=== PATIENT | male | born 1980 | race Hispanic/Latino ===

== ENCOUNTER 2020-03-28 22:54 | Emergency (ER) | payer OTHER ==
[2020-03-28 23:41] LABS: Absolute Lymphocytes (CBC) 1.6 K/uL (0.7-4.9); Basophils % 0.6 % (0-1.3); Hematocrit 28.1 % (39.6-49.0); Lymphocytes % 13.6 % (15.3-44.8); MPV 7.5 fL (7.6-11.3); RBC Red Blood Cell Count 2.88 M/uL (4.33-5.43)
[2020-03-29 00:20] LABS: Bilirubin Direct 0.1 mg/dL (0-0.2); Bilirubin Total 0.2 mg/dL (0.2-1.0)
[2020-03-29] MEDS ORDERED: CLINDAMYCIN 900MG/D5W 900 MG/50 ML IVPB IV ONE (00:36)
--- NOTE | 2020-03-29 01:20 | EDPHYS ---
Physician Documentation [facility] Name: Jp Joe Age: 39 yrs Sex: Male : 1980 Arrival Date: 03/28/2020 Time: 22:58 Bed 5 Private MD: ED Physician Trey Wan HPI: 03/29 06:17 This 39 yrs old Male presents to ER via Wheelchair with complaints of Foot tw4 Infection. 06:17 The patient presents with cellulitis of the right first toe, right second toe and right tw4 third toe. Description: The affected area is moderate sized, localized. Onset: The symptoms/episode began/occurred today. Possible cause(s): unknown. Associated signs and symptoms: The patient has no apparent associated signs or symptoms. Severity of symptoms: At their worst the symptoms were mild. The patient has not experienced similar symptoms in the past. Historical: - Allergies: 03/28 22:59 No Known Allergies; sg - PMHx: 03/29 01:37 Diabetes - NIDDM; ll2 - PSHx: 03/28 22:59 None; sg - Immunization history:: Adult Immunizations up to date. - Social history:: Smoking status: Patient denies any tobacco usage or history of. ROS: 03/29 06:17 Constitutional: Negative for fever, chills, and weight loss, Cardiovascular: Negative tw4 for chest pain, palpitations, and edema, Respiratory: Negative for shortness of breath, cough, wheezing, and pleuritic chest pain, Abdomen/GI: Negative for abdominal pain, nausea, vomiting, diarrhea, and constipation, Back: Negative for injury and pain, MS/Extremity: Negative for injury and deformity. Skin: Positive for cellulitis, Negative for abrasions, abscesses, avulsion, burn, discoloration, ecchymosis, erythema, hematoma, jaundice. Exam: 06:17 Constitutional: This is a well developed, well nourished patient who is awake, alert, tw4 and in no acute distress. Head/Face: Normocephalic, atraumatic. Chest/axilla: Normal chest wall appearance and motion. Nontender with no deformity. No lesions are appreciated. Cardiovascular: Regular rate and rhythm with a normal S1 and S2. No gallops, murmurs, or rubs. Normal PMI, no JVD. No pulse deficits. Respiratory: Lungs have equal breath sounds bilaterally, clear to auscultation and percussion. No rales, rhonchi or wheezes noted. No increased work of breathing, no retractions or nasal flaring. Abdomen/GI: Soft, non-tender, with normal bowel sounds. No distension or tympany. No guarding or rebound. No evidence of tenderness throughout. Back: No spinal tenderness. No costovertebral tenderness. Full range of motion. MS/ Extremity: Pulses equal, no cyanosis. Neurovascular intact. Full, normal range of motion. Neuro: Awake and alert, GCS 15, oriented to person, place, time, and situation. Cranial nerves II-XII grossly intact. Motor strength 5/5 in all extremities. Sensory grossly intact. Cerebellar exam normal. Normal gait. 06:17 Skin: cellulitis, that is moderate. Vital Signs: 03/28 23:45 BP 149 / 84; Pulse 91; Resp 16; Pulse Ox 100% on R/A; ll2 03/29 01:21 BP 130 / 76; Pulse 89; Resp 13; Pulse Ox 100% on R/A; ll2 MDM: 03/28 23:10 Patient medically screened. tw4 03/29 06:17 Differential diagnosis: cellulitis. Data reviewed: vital signs, nurses notes. Data tw4 interpreted: Pulse oximetry: Interpretation: normal. Counseling: I had a detailed discussion with the patient and/or guardian regarding: the historical points, exam findings, and any diagnostic results supporting the discharge/admit diagnosis. Special discussion: I discussed with the patient/guardian in detail that at this point there is no indication for admission to the hospital. It is understood, however, that if the symptoms persist or worsen the patient needs to return immediately for re-evaluation. 03/28 23:12 Order name: Amylase, Serum tw4 03/28 23:12 Order name: Basic Metabolic Panel tw4 03/28 23:12 Order name: Blood Culture Adult (2) tw4 03/28 23:12 Order name: CBC with Diff; Complete Time: 00:17 tw4 03/29 00:17 Interpretation: Normal except: WBC 11.8; HGB 10.0; RBC 2.88; HCT 28.1; MCV 97.6; MCH tw4 34.7; NEUT A 9.0; LYM% 13.6; OSLO% 76.0; MPV 7.5. 03/28 23:12 Order name: Lactate; Complete Time: 00:17 tw4 03/29 00:17 Interpretation: Normal except: LAC 1.3. tw4 03/28 23:12 Order name: LFT's tw4 03/28 23:12 Order name: Lipase tw4 03/28 23:12 Order name: Procalcitonin tw4 03/28 23:12 Order name: Protime (+inr); Complete Time: 00:17 tw4 03/29 00:17 Interpretation: Normal except: PT 11.8. tw4 03/28 23:12 Order name: Ptt, Activated; Complete Time: 00:17 tw4 03/29 00:17 Interpretation: Normal except: PTT 41.0. tw4 03/29 00:01 Order name: Glucose, Ancillary Testing; Complete Time: 00:17 EDMS 03/29 00:17 Interpretation: Normal except: GLUC,ANCIL 247. tw4 03/29 00:02 Order name: Glucose, Ancillary Testing EDMS 03/29 00:40 Order name: Glucose, Ancillary Testing EDMS 03/28 23:12 Order name: Accucheck; Complete Time: 23:54 tw4 03/28 23:12 Order name: Cardiac monitoring; Complete Time: 23:45 tw4 03/28 23:12 Order name: IV Saline Lock - Large Bore; Complete Time: 23:43 tw4 03/28 23:12 Order name: Labs collected and sent; Complete Time: 23:43 tw4 03/28 23:12 Order name: O2 Per Protocol; Complete Time: 23:46 tw4 03/28 23:12 Order name: O2 Sat Monitoring; Complete Time: 23:46 tw4 Administered Medications: 00:35 Drug: Clindamycin 900 mg Route: IVPB; Infused Over: 30 mins; Site: right antecubital; ll2 01:05 Follow up: Response: No adverse reaction; IV Status: Completed infusion ll2 Point of Care Testing: Blood Glucose: 03/28 23:51 Blood Glucose: 247 mg/dL; ll2 Ranges: Critical Glucose Levels:Adult <50 mg/dl or >400 mg/dl <40 mg/dl or >180 mg/dl Disposition: 03/29/20 01:19 Discharged to Home. Impression: Cellulitis of right lower limb. - Condition is Stable. - Discharge Instructions: Cellulitis, Adult. - Prescriptions for Cleocin 300 mg Oral Capsule - take 1 capsule by ORAL route every 6 hours for 10 days; 40 capsule. - Medication Reconciliation Form, Thank You Letter, Antibiotic Education, Prescription Opioid Use form. - Follow up: Private Physician; When: Upon discharge from the Emergency Department; Reason: Recheck today's complaints, Continuance of care, Re-evaluation by your physician. - Problem is new. - Symptoms are unchanged. Signatures: Dispatcher [employer] EDVirgil Berger RN RN sg Trey Wan MD MD tw4 Elena Easton RN RN ll2 Corrections: (The following items were deleted from the chart) 03/29 01:37 03/28 22:59 PMHx: Diabetes - NIDDM; sg ll2 03/29 01:37 01:19 03/29/2020 01:19 Discharged to Home. Impression: Cellulitis of right lower limb. ll2 Condition is Stable. Forms are Medication Reconciliation Form, Thank You Letter, Antibiotic Education, Prescription Opioid Use. Follow up: Private Physician; When: Upon discharge from the Emergency Department; Reason: Recheck today's complaints, Continuance of care, Re-evaluation by your physician. Problem is new. Symptoms are unchanged. tw4
--- NOTE | 2020-03-29 01:20 | ER ---
Nurse's Notes [facility] Name: Jp Joe Age: 39 yrs Sex: Male : 1980 Arrival Date: 03/28/2020 Time: 22:58 Bed 5 Private MD: Diagnosis: Cellulitis of right lower limb Presentation: 03/28 23:01 Chief complaint: Patient states: pt reports a sore on his left foot has become sg infected. Coronavirus screen: Client denies travel out of the [place] in the last 14 days. At this time, the client does not indicate any symptoms associated with coronavirus-19. Ebola Screen: Patient negative for fever greater than or equal to 101.5 degrees Fahrenheit, and additional compatible Ebola Virus Disease symptoms Patient denies exposure to infectious person. Patient denies travel to an Ebola-affected area in the 21 days before illness onset. No symptoms or risks identified at this time. Initial Sepsis Screen: Does the patient meet any 2 criteria? No. Patient's initial sepsis screen is negative. Does the patient have a suspected source of infection? No. Patient's initial sepsis screen is negative. Risk Assessment: Do you want to hurt yourself or someone else? Patient reports no desire to harm self or others. Onset of symptoms was March 21, 2020. Care prior to arrival: None. Transition of care: patient was not received from another setting of care. 23:01 Acuity: JOHN 3 sg 23:01 Method Of Arrival: Wheelchair sg Triage Assessment: 03/29 01:17 General: Appears in no apparent distress. Behavior is calm, cooperative, appropriate ll2 for age. Pain: Denies pain. Historical: - Allergies: 03/28 22:59 No Known Allergies; sg - PMHx: 03/29 01:37 Diabetes - NIDDM; ll2 - PSHx: 03/28 22:59 None; sg - Immunization history:: Adult Immunizations up to date. - Social history:: Smoking status: Patient denies any tobacco usage or history of. Screenin:46 Abuse screen: Denies threats or abuse. Nutritional screening: No deficits noted. ll2 Tuberculosis screening: No symptoms or risk factors identified. Fall Risk IV access (20 points). Ambulatory Aid- None/Bed Rest/Nurse Assist (0 pts). Gait- Normal/Bed Rest/Wheelchair (0 pts) Mental Status- Oriented to own ability (0 pts). Total Law Fall Scale indicates No Risk (0-24 pts). Assessment: 23:46 Reassessment: No changes from previously documented assessment. Patient and/or family ll2 updated on plan of care and expected duration. Pain level reassessed. Patient is alert, oriented x 3, equal unlabored respirations, skin warm/dry/pink. 23:51 Reassessment: fsbs 247, ERD notified. ll2 03/29 00:36 Reassessment: Patient and/or family updated on plan of care and expected duration. Pain ll2 level reassessed. Patient is alert, oriented x 3, equal unlabored respirations, skin warm/dry/pink. FSBS 241, results given to ERD. Vital Signs: 03/28 23:45 BP 149 / 84; Pulse 91; Resp 16; Pulse Ox 100% on R/A; ll2 03/29 01:21 BP 130 / 76; Pulse 89; Resp 13; Pulse Ox 100% on R/A; ll2 ED Course: 03/28 22:58 Patient arrived in ED. bp1 22:59 Arm band placed on. sg 23:05 Triage completed. sg 23:09 Elena Easton, RN is Primary Nurse. ll2 23:10 Trey Wan MD is Attending Physician. tw4 23:42 Inserted saline lock: 20 gauge in right antecubital area, using aseptic technique. 4 Blood collected. 23:44 Amylase, Serum Sent. dh4 23:44 Basic Metabolic Panel Sent. 4 23:44 Blood Culture Adult (2) Sent. 4 03/29 00:22 Glucose, Ancillary Testing Sent. ll2 01:17 Patient has correct armband on for positive identification. Bed in low position. Call 2 light in reach. Side rails up X2. Adult w/ patient. Pulse ox on. NIBP on. 01:37 No provider procedures requiring assistance completed. IV discontinued, intact, ll2 bleeding controlled, No redness/swelling at site. Pressure dressing applied. Administered Medications: 00:35 Drug: Clindamycin 900 mg Route: IVPB; Infused Over: 30 mins; Site: right antecubital; ll2 01:05 Follow up: Response: No adverse reaction; IV Status: Completed infusion ll2 Point of Care Testing: Blood Glucose: 03/28 23:51 Blood Glucose: 247 mg/dL; ll2 Ranges: Outcome: 03/29 01:19 Discharge ordered by . tw4 01:37 Discharged to home ambulatory. ll2 01:37 Condition: stable 01:37 Discharge instructions given to patient, Instructed on discharge instructions, follow up and referral plans. medication usage, Demonstrated understanding of instructions, follow-up care, medications. 01:37 Patient left the ED. ll2 Signatures: Virgil Wolff RN RN Trey Talbot MD MD tw4 Edvin Jang [facility] Elena Easton RN RN 2 Starla Kinsey [facility] Corrections: (The following items were deleted from the chart) 01:37 03/28 22:59 PMHx: Diabetes - NIDDM; hallie 2
[2020-03-29 01:50] VITALS: O2SAT 100
[2020-03-29 01:52] VITALS: BP 130/76
--- NOTE | 2020-03-31 11:17 | EKG ---
Test Date: 2020-03-28 Test Time: 23:23:30 Preprint Analyst: BETHANY MEASUREMENT RESULTS: Intervals: Rate: 92 IA: 152 QRSD: 94 QT: 384 QTc: 474 Bassett: P: 58 IA: 152 QRS: 30 T: 53 INTERPRETIVE STATEMENTS: Normal sinus rhythm Normal ECG Compared to ECG 01/04/2006 14:11:48 Sinus tachycardia no longer present Electronically Signed On 03-31-20 11:14:03 CDT by Leighton Wang
== END 2020-03-29 01:37 | disposition home or self-care (01) ==
LOC: ER 22:54
DX: L03.115 Cellulitis of right lower limb (principal); E11.9 Type 2 diabetes mellitus without complications
CPT/HCPCS: 36415; 80048; 80076; 82150; 82947; 83605; 83690; 84145; 85025; 85610; 85730; 87040; 93005; 96365; 99284

== ENCOUNTER 2020-10-30 11:45 | Emergency (ER) | payer OTHER ==
--- OUTSIDE RECORDS SUMMARY | 2020-10-30 11:48 | XMS REPORT | Continuity of Care Document ---
:1980 Author Organization [facility] t Address [address] [place] [address] Care Team Providers Name Role Phone Naomie Curiel DO Primary Care Physician Sree Chung Attending Clinician Dione Tolliver Attending Clinician Malena Carson MD Attending Clinician Carloz HORTON Attending Clinician Hitesh Torres CRNA Attending Clinician MITCHELL Attending Clinician Unavailable YAMILETH Admitting Clinician Unavailable MITCHELL Admitting Clinician Unavailable Payers Payer Name Policy Type Policy Effective Date Expiration Date Sour ce Number MEDICAREMEDICARE PART [id number] 2019 Peterson abdi Balbuena AND 00:00:00 [employer] [id number] 2019 [place] Condition Condition Condition Status Onset Resolution Last Treating Co mments Source Name Details Category Date Date Treatment Clinician Date ESRD (end ESRD (end Disease Active Overview: [place] stage stage 1-24 [facility] [facility] renal renal 00:00: g of this st disease) disease) 00 note on on might be dialysis dialysis different from the original. Added automatic ally from request for surgery [id number] Problem Problem Disease Active 2020-0 Overview: [place] with with 1-24 [facility] dialysis dialysis 00:00: g of this st access access 00 note might be different from the original. Added automatic ally from request for surgery [id number] Allergies, Adverse Reactions, Alerts This patient has no known allergies or adverse reactions. Social History Social Habit Start Date Stop Date Quantity Comments Source History [facility] Alcohol Std Drinks History [facility] Alcohol Binge Tobacco use and 2019-12-01 2019-12-01 Never used Teddy Hurtado ethodist exposure 00:00:00 00:00:00 Alcohol intake 2019-12-01 2019-12-01 Lifetime [place] [facility]ist 00:00:00 00:00:00 non-drinker (finding) History SDIA 2019-07-18 2019-07-18 1 [place] [facility] Alcohol Frequency 00:00:00 00:00:00 History of tobacco 2019-05-18 Current smoker [place] [facility] use 00:00:00 Sex [birth year] [place] [facility] ethodist 00:00:00 00:00:00 Smoking Status Start Date Stop Date Source Former smoker 2019-12-01 00:00:00 2019-12-01 00:00:00 [place] [facility] Medications Ordered Filled Start Stop Current Ordering Indication Dosage Frequency Signature Comments Components Source Medication Medication Date Date Medication? Clinician (SIG) Name Name lidocaine-p Yes Encounter APPLY OVER [place] rilocaine 09-19 regarding [place] (EMLA) 00:00: vascular 30-40 st 2.5-2.5 % 00 access for MINUTES cream dialysis PRIOR TO for DIALYSIS end-stage TREATMENT renal disease (HCC) lisinopril 2020-0 Yes 20mg Take 20 mg [place] (PRINIVIL) 6-10 by mouth. Meth samy 20 mg 16:03: st tablet 22 ergocalcife 2020-0 Yes [id number] Take [place] 6-10 50,000 [facility] (VITAMIN 16:03: Units by st D2) 50,000 22 mouth. unit capsule insulin NPH 2020-0 Yes 5U Inject 5 [place] and regular 6-10 Units [facility] human 16:03: under the st (HumuLIN 22 skin. 7030) 100 unit/mL (70-30) amLODIPine 2019-0 Yes 5mg QD Take 5 mg [place] (NORVASC) 5 6-10 by mouth Meth samy mg tablet 16:03: daily. st 22 lidocaine-p 2020- No Encounter Apply over [place] rilocaine 09-04 regarding fistula Bryant bullard (EMLA) 00:00: 00:00 vascular 30-40 min s t 2.5-2.5 % 00 :00 access for prior to cream dialysis dialysis for treatment end-stage renal disease (HCC) HYDROcodone Yes acute pain 1{tbl} Q6H Take 1 [facility] -acetaminop 1-29 tablet by Met hodi hen (NORCO) 00:00: mouth st 5-325 mg 00 every 6 per tablet (six) hours as needed for moderate pain for up to 5 days .acute pain. Max Daily Amount: 4 tablets sevelamer 2018-06 Yes 800mg [id number] Take 800 [facility] (RENVELA) 07-29 [id number] mg by Met hodi 800 mg 00:00: 3D mouth 3 st tablet 00 (three) times a day with meals. atorvastati 2018-06 2020- No 20mg QD Take 20 mg Teddy n (LIPITOR) 07-29 by mouth Met hodi 20 MG 00:00: 00:[address] tablet 00 :00 Vital Signs Vital Name Observation Time Observation Value Comments Source Systolic blood 2019-11-29 15:09:00 131 mm[Hg] [place] n [facility] pressure Diastolic blood 2019-11-29 15:09:00 82 mm[Hg] [place] on [facility] pressure Heart rate 2019-11-29 15:09:00 85 /min Teddy May Body temperature 2019-11-29 15:09:00 36.61 Leslie [place] [facility] Respiratory rate 2019-11-29 15:09:00 16 /min [place] [facility] Oxygen saturation in 2019-11-29 15:09:00 100 /min Teddy May Arterial blood by Pulse oximetry Body height 2019-11-29 10:32:00 175.3 cm Teddy May Body weight 2019-11-29 10:32:00 103.874 kg Teddy May BMI 2019-11-29 10:32:00 33.82 kg/m2 Teddy May Procedures Procedure Date / Time Performed Performing Clinician Sourc e VITRECTOMY 2019-11-29 12:40:00 Eugenio Carson [facility] POC PANEL 4 2019-11-29 10:56:00 Eugenio Carson [place] [facility] Plan of Care Planned Activity Planned Date Details Comments Source Future Scheduled 2021-01-19 INFLUENZA VACCINE [place] [facility] Test 00:00:00 [code = INFLUENZA VACCINE] Future Scheduled 1999-12-18 Hepatitis C screening [place] [facility] Test 00:00:00 (procedure) [code = 280665200] Future Scheduled 1997 COVID-19 VACCINE (1) [place] [facility] Test 00:00:00 [code = COVID-19 VACCINE (1)] Future Scheduled 1991-12-18 DIABETES: RETINAL EYE [place] [facility] Test 00:00:00 EXAM [code = DIABETES: RETINAL EYE EXAM] Future Scheduled 1991-12-18 DIABETIC FOOT EXAM [place] [facility] Test 00:00:00 [code = DIABETIC FOOT EXAM] Future Scheduled 1991-12-18 URINE MICROALBUMIN [place] [facility] Test 00:00:00 [code = URINE MICROALBUMIN] Encounters Start End Encounter Admission Attending Care Care Encounter Source Date/Time Date/Time Type Type Clinicians Facility Department ID 2020-10-25 2020-10-25 Office Located within [facility] [id number] 14 13:18:00 15:16:[address] [facility] [id number] [place] [id number] Daniel [id number] [place] [address] 2019-11-29 2019-11-29 Outpatient [facility] [id number] [place] 00:00:00 00:00:[address] 2019-10-10 2019-10-10 Outpatient [facility] [id number] [place] 00:00:00 00:00:[address] 2019-09-05 2019-09-05 Outpatient [facility] [id number] [place] 00:00:00 00:00:[address] 2019-07-18 2019-07-18 Outpatient [facility] [id number] [place] 00:00:00 00:00:00 THONY [address] Results This patient has no known results.
[2020-10-30 13:53] LABS: Absolute Lymphocytes (CBC) 1.4 K/uL (0.7-4.9); Basophils % 0.8 % (0-1.3); Hematocrit 28.6 % (39.6-49.0); Lymphocytes % 8.1 % (15.3-44.8); RBC Red Blood Cell Count 2.91 M/uL (4.33-5.43)
[2020-10-30 14:00] LABS: Protime INR 1.04
[2020-10-30 14:04] LABS: Albumin 2.7 g/dL (3.4-5.0); Bilirubin Direct 0.1 mg/dL (0-0.2); Bilirubin Total 0.3 mg/dL (0.2-1.0); Magnesium 2.4 mg/dL (1.8-2.4); Potassium 4.1 mmol/L (3.5-5.1); Protein, Total 8.6 g/dL (6.4-8.2); Troponin (Emerg Dept Use Only) 0.02 ng/mL (0.0-0.045)
[2020-10-30] MEDS ORDERED: LIDOCAINE 1% W/EPI 1:100,000 MDV 20 ML VIAL ONE (14:04)
--- NOTE | 2020-10-30 14:29 | ER ---
Nurse's Notes [facility] Name: Jp Joe Age: 39 yrs Sex: Male : 1980 Arrival Date: 10/30/2020 Time: 11:51 Bed 15 Private MD: Diagnosis: Cutaneous abscess of face;Type 1 diabetes mellitus;End stage renal disease-on HD, M, W, WEDNESDAY;Elevated white blood cell count Presentation: 10/30 12:09 Chief complaint: Abscess on right cheek x 5 days. Coronavirus screen: At this time, the hb client does not indicate any symptoms associated with coronavirus-19. Ebola Screen: No symptoms or risks identified at this time. Initial Sepsis Screen: Does the patient meet any 2 criteria? No. Patient's initial sepsis screen is negative. Does the patient have a suspected source of infection? No. Patient's initial sepsis screen is negative. Risk Assessment: Do you want to hurt yourself or someone else? Patient reports no desire to harm self or others. Onset of symptoms was October 26, 2020. 12:09 Method Of Arrival: Ambulatory hb 12:09 Acuity: JOHN 3 hb Historical: - Allergies: 12:10 No Known Allergies; hb - Home Meds: 12:10 Novolin 70/30 [place] Sub-Q [Active]; hb - PMHx: 12:10 Diabetes - NIDDM; hb - PSHx: 12:10 None; hb - Immunization history:: Adult Immunizations up to date. - Social history:: Smoking status: Patient/guardian denies using tobacco, Stopped _ months ago .5. - Family history:: not pertinent. Screenin:35 Abuse screen: Denies threats or abuse. Nutritional screening: No deficits noted. vg1 Tuberculosis screening: No symptoms or risk factors identified. Fall Risk No fall in past 12 months (0 pts). No secondary diagnosis (0 pts). No IV (0 pts). Ambulatory Aid- None/Bed Rest/Nurse Assist (0 pts). Gait- Normal/Bed Rest/Wheelchair (0 pts) Mental Status- Oriented to own ability (0 pts). Total Law Fall Scale indicates No Risk (0-24 pts). Assessment: 12:30 General: Appears in no apparent distress. comfortable, Behavior is calm, cooperative. vg1 Pain: Complains of pain in Right side of cheek Pain currently is 2 out of 10 on a pain scale. at worst was 10 out of 10 on a pain scale. Pain began about five days ago Alleviated by rest, Aggravated by touch. Neuro: Level of Consciousness is awake, alert, obeys commands, Oriented to person, place, time, situation. Cardiovascular: Patient's skin is warm and dry. Cardiovascular: Dialysis shunt: in the left forarm, with palpable thrill, with auscultated bruit. Respiratory: Airway is patent Respiratory effort is even, unlabored. GI: No signs and/or symptoms were reported involving the gastrointestinal system. : No signs and/or symptoms were reported regarding the genitourinary system. 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 Derm: Skin is red, yellow exudate noted Abscess located on right side of cheek. Musculoskeletal: Circulation, motion, and sensation intact. 14:44 Reassessment: Patient appears in no apparent distress at this time. No changes from vg1 previously documented assessment. Patient and/or family updated on plan of care and expected duration. Pain level reassessed. Patient is alert, oriented x 3, equal unlabored respirations, skin warm/dry/pink. Pt currently up for d/c, awaiting for IV fluids to complete. Vital Signs: 12:09 BP 198 / 88; Pulse 83; Resp 16; Temp 98; Pulse Ox 99% on R/A; Pain 10/10; hb 12:33 BP 154 / 88; Pulse 90; Resp 16; Pulse Ox 100% on R/A; vg1 14:54 BP 142 / 74; Pulse 89; Resp 16; Pulse Ox 100% on R/A; vg1 ED Course: 11:51 Patient arrived in ED. mr 12:10 Triage completed. hb 12:10 Arm band placed on. hb 12:21 Ramona Joe, RN is Primary Nurse. vg1 12:31 Javier Martines MD is Attending Physician. monet 12:35 Patient has correct armband on for positive identification. Bed in low position. Call vg1 light in reach. Side rails up X 1. Adult w/ patient. 14:29 Biju Patel MD is Referral Physician. monet 14:29 Aaron Curiel DO is Referral Physician. monet 14:53 Inserted saline lock: 18 gauge in right antecubital area, using aseptic technique. vg1 ,using aseptic technique. Completed by SANA Dubois. 16:17 No provider procedures requiring assistance completed. IV discontinued, intact, vg1 bleeding controlled, No redness/swelling at site. Pressure dressing applied. Administered Medications: 14:21 Drug: Lidocaine-Epinephrine -1%: (1:100,000) 10 ml Volume: 20 ml; Route: Infiltration; vg1 14:52 Follow up: Response: No adverse reaction vg1 14:22 CANCELLED (Physician Discretion): Zosyn (piperacillin-tazobactam) 3.375 grams IVPB once vg1 over 60 mins; (mix in NS 100 mL) 14:44 Drug: Doxycycline 200 mg Route: PO; vg1 16:17 Follow up: Response: No adverse reaction vg1 14:44 Drug: Bactrim (trimethoprim-sulfamethoxazole) (160 mg-800 mg (DS) 1 tablet Route: PO; vg1 16:17 Follow up: Response: No adverse reaction vg1 14:44 Drug: Bactroban (mupirocin) Ointment 2 % 1 application Route: Topical; Site: affected vg1 area; 16:16 Follow up: Response: No adverse reaction vg1 14:52 Drug: vancoMYCIN 1 grams Route: IVPB; Infused Over: 2 hrs; Site: right antecubital; vg1 16:17 Follow up: IV Status: Completed infusion vg1 Outcome: 14:29 Discharge ordered by MD. healy 16:17 Discharged to home ambulatory, with family. vg1 16:17 Condition: stable 16:17 Discharge instructions given to patient, family, Instructed on discharge instructions, follow up and referral plans. medication usage, Demonstrated understanding of instructions, follow-up care, medications, Prescriptions given X 3. 16:18 Patient left the ED. vg1 Addendum: 11/02/2020 09:35 Addendum: Culture Results: Positive wound culture. No further action required. Bacteria a a5 sensitive to prescribed antibiotic. Signatures: Javier Martines MD MD cha Rivera, Mary mr TerranceGinny, RN RN aa5 Laura Stephenson, Ramona Ramos RN, RN RN vg1 Corrections: (The following items were deleted from the chart) 10/30 12:11 12:09 BP 148 / 88; Pulse 83bpm; Resp 16bpm; Pulse Ox 99% RA; Temp 98F; Pain 10; hb hb
--- NOTE | 2020-10-30 14:30 | EDPHYS ---
Physician Documentation [facility] Name: Jp Joe Age: 39 yrs Sex: Male : 1980 Arrival Date: 10/30/2020 Time: 11:51 Bed 15 Private MD: ED Physician Javier Martines HPI: 10/30 13:15 This 39 yrs old Male presents to ER via Ambulatory with complaints of Abscess. monet 13:15 The patient presents with an abscess of the right cheek and right ear, The patient monet presents with cellulitis of the right cheek and right ear. Description: The affected area is moderate sized, confluent, draining, erythematous. Onset: The symptoms/episode began/occurred 5 day(s) ago. Possible cause(s): unknown. Modifying factors: the symptoms are alleviated by. Severity of symptoms: At their worst the symptoms were moderate, in the emergency department the symptoms are unchanged. The patient has not experienced similar symptoms in the past. Historical: - Allergies: 12:10 No Known Allergies; hb - Home Meds: 12:10 Novolin 70/30 [place] Sub-Q [Active]; hb - PMHx: 12:10 Diabetes - NIDDM; hb - PSHx: 12:10 None; hb - Immunization history:: Adult Immunizations up to date. - Social history:: Smoking status: Patient/guardian denies using tobacco, Stopped _ months ago .5. - Family history:: not pertinent. ROS: 13:15 Constitutional: Negative for fever, chills, and weight loss, Eyes: Negative for injury, monet pain, redness, and discharge, Neck: Negative for injury, pain, and swelling, Cardiovascular: Negative for chest pain, palpitations, and edema, Respiratory: Negative for shortness of breath, cough, wheezing, and pleuritic chest pain, Abdomen/GI: Negative for abdominal pain, nausea, vomiting, diarrhea, and constipation, Back: Negative for injury and pain, : Negative for injury, bleeding, discharge, and swelling, MS/Extremity: Negative for injury and deformity, Neuro: Negative for headache, weakness, numbness, tingling, and seizure, Psych: Negative for depression, anxiety, suicide ideation, homicidal ideation, and hallucinations, Allergy/Immunology: Negative for hives, rash, and allergies, Endocrine: Negative for neck swelling, polydipsia, polyuria, polyphagia, and marked weight changes. 13:15 ENT: Positive for right facial abscess, indurated, draining. Exam: 13:15 Constitutional: This is a well developed, well nourished patient who is awake, alert, monet and in no acute distress. Eyes: Pupils equal round and reactive to light, extra-ocular motions intact. Lids and lashes normal. Conjunctiva and sclera are non-icteric and not injected. Cornea within normal limits. Periorbital areas with no swelling, redness, or edema. ENT: Nares patent. No nasal discharge, no septal abnormalities noted. Tympanic membranes are normal and external auditory canals are clear. Oropharynx with no redness, swelling, or masses, exudates, or evidence of obstruction, uvula midline. Mucous membranes moist. Neck: Trachea midline, no thyromegaly or masses palpated, and no cervical lymphadenopathy. Supple, full range of motion without nuchal rigidity, or vertebral point tenderness. No Meningismus. Chest/axilla: Normal chest wall appearance and motion. Nontender with no deformity. No lesions are appreciated. Cardiovascular: Regular rate and rhythm with a normal S1 and S2. No gallops, murmurs, or rubs. Normal PMI, no JVD. No pulse deficits. Respiratory: Lungs have equal breath sounds bilaterally, clear to auscultation and percussion. No rales, rhonchi or wheezes noted. No increased work of breathing, no retractions or nasal flaring. Abdomen/GI: Soft, non-tender, with normal bowel sounds. No distension or tympany. No guarding or rebound. No evidence of tenderness throughout. Back: No spinal tenderness. No costovertebral tenderness. Full range of motion. Skin: Warm, dry with normal turgor. Normal color with no rashes, no lesions, and no evidence of cellulitis. MS/ Extremity: Pulses equal, no cyanosis. Neurovascular intact. Full, normal range of motion. Neuro: Awake and alert, GCS 15, oriented to person, place, time, and situation. Cranial nerves II-XII grossly intact. Motor strength 5/5 in all extremities. Sensory grossly intact. Cerebellar exam normal. Normal gait. Psych: Awake, alert, with orientation to person, place and time. Behavior, mood, and affect are within normal limits. 13:15 Head/face: Noted is erythema, that is moderate, of the right cheek and right ear, swelling, tenderness. 13:15 Skin: abscess, that is moderate sized, of the face and right cheek, with drainage, with fluctuance, with induration, with pointing, with surrounding cellulitis, that is moderate, cellulitis, that is moderate, induration, that is moderate is noted. Vital Signs: 12:09 BP 198 / 88; Pulse 83; Resp 16; Temp 98; Pulse Ox 99% on R/A; Pain 10/10; hb 12:33 BP 154 / 88; Pulse 90; Resp 16; Pulse Ox 100% on R/A; vg1 14:54 BP 142 / 74; Pulse 89; Resp 16; Pulse Ox 100% on R/A; vg1 Procedures: 13:26 I \T\ D: Incision and drainage was performed for an abscess of the right Prepped with [facility] Betadine, Anesthetized with 10 ml's 1% Lidocaine w/ Epi. Incised with #11 blade. Drained moderate amount Packed with iodoform gauze, Dressing: non-Adherent dressing, the patient tolerated the procedure well. MDM: 12:32 Patient medically screened. monet 13:25 Differential diagnosis: abscess, cellulitis. Data reviewed: vital signs, nurses notes, [facility] lab test result(s), EKG, radiologic studies, plain films. Data interpreted: ekg monitor tech: rate is 90 beats/min, rhythm is regular, Pulse oximetry: on room air is 100 %. Test interpretation: by ED physician or midlevel provider: ECG, plain radiologic studies. Counseling: I had a detailed discussion with the patient and/or guardian regarding: the historical points, exam findings, and any diagnostic results supporting the discharge/admit diagnosis, lab results, the need for outpatient follow up, for definitive care, a general surgeon. 10/30 12:49 Order name: Basic Metabolic Panel [facility] 10/30 12:49 Order name: CBC with Diff [facility] 10/30 12:49 Order name: LFT's [facility] 10/30 12:49 Order name: Magnesium [facility] 10/30 12:49 Order name: NT PRO-BNP [facility] 10/30 12:49 Order name: PT-INR [facility] 10/30 12:49 Order name: Troponin (emerg Dept Use Only) [facility] 10/30 12:49 Order name: Wound Culture [facility] 10/30 12:49 Order name: Basic Metabolic Panel [facility] 10/30 12:49 Order name: CBC with Automated Diff [facility] 10/30 12:49 Order name: Liver (Hepatic) Function [facility] 10/30 12:49 Order name: Magnesium [facility] 10/30 12:49 Order name: NT PRO-BNP [facility] 10/30 12:49 Order name: EKG; Complete Time: 12:50 [facility] 10/30 12:49 Order name: IV Saline Lock; Complete Time: 13:44 [facility] 10/30 12:49 Order name: Labs collected and sent; Complete Time: 13:44 [facility] 10/30 12:49 Order name: O2 Per Protocol; Complete Time: 13:44 [facility] 10/30 12:49 Order name: O2 Sat Monitoring; Complete Time: 13:44 [facility] 10/30 12:50 Order name: Dressing - Wound; Complete Time: 13:43 [facility] 10/30 12:50 Order name: Gloves, Sterile; Complete Time: 13:43 [facility] 10/30 12:50 Order name: Setup Suture Tray; Complete Time: 13:43 [facility] Administered Medications: 14:21 Drug: Lidocaine-Epinephrine -1%: (1:100,000) 10 ml Volume: 20 ml; Route: Infiltration; vg1 14:52 Follow up: Response: No adverse reaction vg1 14:22 CANCELLED (Physician Discretion): Zosyn (piperacillin-tazobactam) 3.375 grams IVPB once vg1 over 60 mins; (mix in NS 100 mL) 14:44 Drug: Doxycycline 200 mg Route: PO; vg1 16:17 Follow up: Response: No adverse reaction vg1 14:44 Drug: Bactrim (trimethoprim-sulfamethoxazole) (160 mg-800 mg (DS) 1 tablet Route: PO; vg1 16:17 Follow up: Response: No adverse reaction vg1 14:44 Drug: Bactroban (mupirocin) Ointment 2 % 1 application Route: Topical; Site: affected vg1 area; 16:16 Follow up: Response: No adverse reaction vg1 14:52 Drug: vancoMYCIN 1 grams Route: IVPB; Infused Over: 2 hrs; Site: right antecubital; vg1 16:17 Follow up: IV Status: Completed infusion vg1 Disposition: 10/30/20 14:29 Discharged to Home. Impression: Cutaneous abscess of face, Type 1 diabetes mellitus, End stage renal disease - on HD, M, W, WEDNESDAY, Elevated white blood cell count. - Condition is Stable. - Discharge Instructions: Skin Abscess, Type 1 Diabetes Mellitus, Diagnosis, Adult, Incision and Drainage, Skin Abscess, [id number], Dialysis, Type 1 Diabetes Mellitus, Diagnosis, Adult, [id number], Type 1 Diabetes Mellitus, Self Care, Adult, [id number], Dialysis Diet. - Prescriptions for Bactroban 2 % Topical Ointment - Apply to affected area 1 application by TOPICAL route every 12 hours; 15 gram. Doxycycline Hyclate 100 mg Oral Tablet - take 1 tablet by ORAL route every 12 hours; 20 tablet. Bactrim DS 800- 160 mg Oral Tablet - take 1 tablet by ORAL route every 12 hours for 10 days; 20 tablet. - Medication Reconciliation Form, Thank You Letter, Antibiotic Education, Prescription Opioid Use form. - Follow up: Private Physician; When: 1 - 2 days; Reason: Recheck today's complaints, Continuance of care, Re-evaluation by your physician. Follow up: Biju Patel; When: 2 - 3 days; Reason: Recheck today's complaints, Re-evaluation by your physician. Follow up: Aaron Curiel; When: Today; Reason: Recheck today's complaints, Continuance of care, Re-evaluation by your physician. - Problem is new. - Symptoms have improved. Signatures: Dispatcher [employer] EDMS Javier Martines MD MD cha Baxter, Heather, RN RN Ramona Joe RN RN vg1 Corrections: (The following items were deleted from the chart) 14:22 12:49 Zosyn (piperacillin-tazobactam) 3.375 grams IVPB once over 60 mins; (mix in NS vg1 100 mL) ordered. [facility] 14:30 14:29 10/30/2020 14:29 Discharged to Home. Impression: Cutaneous abscess of face; Type monet 1 diabetes mellitus; End stage renal disease - on HD, M, , WEDNESDAY. Condition is Stable. Discharge Instructions: Skin Abscess, Type 1 Diabetes Mellitus, Diagnosis, Adult, Incision and Drainage, Skin Abscess, [id number], Dialysis, Type 1 Diabetes Mellitus, Diagnosis, Adult, [id number], Type 1 Diabetes Mellitus, Self Care, Adult, [id number], Dialysis Diet. Prescriptions for Bactroban 2 % Topical Ointment - Apply to affected area 1 application by TOPICAL route every 12 hours; 15 gram, Doxycycline Hyclate 100 mg Oral Tablet - take 1 tablet by ORAL route every 12 hours; 20 tablet, Bactrim DS 800-160 mg Oral Tablet - take 1 tablet by ORAL route every 12 hours for 10 days; 20 tablet. and Forms are Medication Reconciliation Form, Thank You Letter, Antibiotic Education, Prescription Opioid Use. Follow up: Private Physician; When: 1 - 2 days; Reason: Recheck today's complaints, Continuance of care, Re-evaluation by your physician. Follow up: Biju Patel; When: 2 - 3 days; Reason: Recheck today's complaints, Re-evaluation by your physician. Follow up: Aaron Curiel; When: Today; Reason: Recheck today's complaints, Continuance of care, Re-evaluation by your physician. Problem is new. Symptoms have improved. monet 14:35 12:50 Chest Single View+[id number] ordered. EDMS EDMS 16:18 14:30 10/30/2020 14:29 Discharged to Home. Impression: Cutaneous abscess of face; Type vg1 1 diabetes mellitus; End stage renal disease - on HD, , , WEDNESDAY; Elevated white blood cell count. Condition is Stable. Discharge Instructions: Skin Abscess, Type 1 Diabetes Mellitus, Diagnosis, Adult, Incision and Drainage, Skin Abscess, [id number], Dialysis, Type 1 Diabetes Mellitus, Diagnosis, Adult, Yjqv-[id number], Type 1 Diabetes Mellitus, Self Care, Adult, Iwrg-[id number], Dialysis Diet. Prescriptions for Bactroban 2 % Topical Ointment - Apply to affected area 1 application by TOPICAL route every 12 hours; 15 gram, Doxycycline Hyclate 100 mg Oral Tablet - take 1 tablet by ORAL route every 12 hours; 20 tablet, Bactrim DS 800-160 mg Oral Tablet - take 1 tablet by ORAL route every 12 hours for 10 days; 20 tablet. and Forms are Medication Reconciliation Form, Thank You Letter, Antibiotic Education, Prescription Opioid Use. Follow up: Private Physician; When: 1 - 2 days; Reason: Recheck today's complaints, Continuance of care, Re-evaluation by your physician. Follow up: Biju Patel; When: 2 - 3 days; Reason: Recheck today's complaints, Re-evaluation by your physician. Follow up: Aaron Curiel; When: Today; Reason: Recheck today's complaints, Continuance of care, Re-evaluation by your physician. Problem is new. Symptoms have improved. monet
[2020-10-30] MEDS ORDERED: MUPIROCIN 2% OINT 22GM TUBE TOP ONE (14:49)
[2020-10-30] MEDS ORDERED: DOXYCYCLINE 100 MG CAP PO ONE (14:49)
[2020-10-30] MEDS ORDERED: SMZ./TMP. 800/160 MG TABLET ONE (14:49)
[2020-10-30] MEDS ORDERED: VANCOMYCIN/NS 1 gm 1 GM/250 ML BAG IVPB ONE (15:00)
[2020-10-30 16:23] VITALS: TEMP 98
[2020-10-30 16:24] VITALS: O2SAT 100
[2020-10-30 16:26] VITALS: BP 142/74
== END 2020-10-30 16:18 | disposition home or self-care (01) ==
LOC: ER 11:45
PROC: 0J910ZZ Drainage of Face Subcutaneous Tissue and Fascia, Open Approach (ICD-10-PCS; principal; 2020-10-30)
DX: L03.211 Cellulitis of face (principal); D72.829 Elevated white blood cell count, unspecified; E10.22 Type 1 diabetes mellitus with diabetic chronic kidney disease; N18.6 End stage renal disease; Z99.2 Dependence on renal dialysis; Z79.4 Long term (current) use of insulin
CPT/HCPCS: 96365; 87070; 85025; 80048; 36415; 83735; 87205; 85610; 80076; 87077; 87186; 84484; 83880; 99283; 10060; J3370

== ENCOUNTER 2022-09-27 18:15 | Inpatient (IN) | payer OTHER ==
--- OUTSIDE RECORDS SUMMARY | 2022-09-27 18:25 | XMS REPORT | Continuity of Care Document ---
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 Uni vers oxide 400 5-07 mg by ity of mg (241.3 18:38: mouth [place] mg 10 daily. Medical magnesium) Branch tablet carvedilol Yes 25mg Take 25 mg [facility] 25 mg 5-07 by mouth 2 ity of tablet 18:38: (two) [place] 10 times Medical daily with Branch meals. ferrous Yes 325mg Take 325 Unive rs sulfate 325 5-07 mg by ity of mg (65 mg 18:38: mouth 2 [place] iron) 10 (two) Medical tablet times Branch daily. sucroferric Yes 500mg Take 500 [facility] nivers oxyhydroxid 5-07 mg by ity of e 18:38: mouth. [place] (VELPHORO) 10 Medical 500 mg Chew Branch ramipriL 5 Yes 5mg Take 5 mg Un sun mg capsule 5-07 by mouth. ity of 18:38: [place] 10 Medical Branch amLODIPine Yes 5mg Take 5 mg Un sun 5 mg tablet 5-07 by mouth. ity of 18:38: [place] [address] Medical Branch calcitriol Yes .5ug Take 0.5 Uni vers 0.5 mcg 5-07 mcg by ity of capsule 18:38: mouth [place] 10 every Medical Wednesday, Branch Wednesday and Wednesday. calcium Yes Take by [facility] carbonate/g 5-07 mouth 3 ity o f lycine 18:38: (three) [place] (TITRALAC 10 times Medical ORAL) daily. Branch Indication s: 2 tabs doxazosin 2 Yes 2mg Take 2 mg [facility] mg tablet 5-07 by mouth ity of 18:38: at [place] 10 bedtime. Medical Branch ergocalcife Yes [id number] Take Univ ers rol, 5-07 50,000 ity of vitamin d2, 18:38: Units by [place] (VITAMIN 10 mouth Medical D2) 50,000 weekly. Branch unit capsule famotidine Yes 20mg Take 20 mg [facility] n[facility] (PEPCID AC) 5-07 by mouth ity of 20 mg 18:38: daily. [place] tablet 10 Medical Branch Insulin Yes 5U inject 5 Univer s NPH-Regular 5-07 Units ity of Human Rec 18:38: under the Rk as 100 unit/mL 10 skin 2 Medica l (70-30) (two) Branch injection times daily. magnesium Yes 400mg Take 400 Uni vers oxide 400 5-07 mg by ity of mg (241.3 18:38: mouth [place] mg 10 daily. Medical magnesium) Branch tablet carvedilol Yes 25mg Take 25 mg [facility] 25 mg 5-07 by mouth 2 ity of tablet 18:38: (two) [place] 10 times Medical daily with Branch meals. ferrous Yes 325mg Take 325 Unive rs sulfate 325 5-07 mg by ity of mg (65 mg 18:38: mouth 2 [place] iron) 10 (two) Medical tablet times Branch daily. sucroferric Yes 500mg Take 500 [facility] oxyhydroxid 5-07 mg by ity of e 18:38: mouth. [place] (VELPHORO) 10 Medical 500 mg Chew Branch ramipriL 5 Yes 5mg Take 5 mg Un sun mg capsule 5-07 by mouth. ity of 18:38: [place] [facility] Branch amLODIPine Yes 5mg Take 5 mg Un sun 5 mg tablet 5-07 by mouth. ity of 18:38: [place] 10 Medical Branch calcitriol Yes .5ug Take 0.5 Uni vers 0.5 mcg 5-07 mcg by ity of capsule 18:38: mouth [place] 10 every Medical Wednesday, Branch Wednesday and Wednesday. calcium Yes Take by [facility] carbonate/g 5-07 mouth 3 ity o f lycine 18:38: (three) [place] (TITRALAC 10 times Medical ORAL) daily. Branch Indication s: 2 tabs doxazosin 2 Yes 2mg Take 2 mg [facility] mg tablet 5-07 by mouth ity of 18:38: at [place] 10 bedtime. Medical Branch ergocalcife Yes [id number] Take [facility] ers rol, 5-07 50,000 ity of vitamin d2, 18:38: Units by [place] (VITAMIN 10 mouth Medical D2) 50,000 weekly. Branch unit capsule famotidine Yes 20mg Take 20 mg [facility] n[facility] (PEPCID AC) 5-07 by mouth ity of 20 mg 18:38: daily. [place] tablet 10 Medical Branch Insulin Yes 5U inject 5 Univer s NPH-Regular 5-07 Units ity of Human Rec 18:38: under the Rk as 100 unit/mL 10 skin 2 Medica l (70-30) (two) Branch injection times daily. magnesium Yes 400mg Take 400 Uni vers oxide 400 5-07 mg by ity of mg (241.3 18:38: mouth [place] mg 10 daily. Medical magnesium) Branch tablet carvedilol Yes 25mg Take 25 mg [facility] 25 mg 5-07 by mouth 2 ity of tablet 18:38: (two) [place] 10 times Medical daily with Branch meals. ferrous Yes 325mg Take 325 Unive rs sulfate 325 5-07 mg by ity of mg (65 mg 18:38: mouth 2 [place] iron) 10 (two) Medical tablet times Branch daily. sucroferric Yes 500mg Take 500 U nivers oxyhydroxid 5-07 mg by ity of e 18:38: mouth. [place] (VELPHORO) 10 Medical 500 mg Chew Branch ramipriL 5 Yes 5mg Take 5 mg Un sun mg capsule 5-07 by mouth. ity of 18:38: [place] [address] Medical Branch amLODIPine Yes 5mg Take 5 mg Un sun 5 mg tablet 5-07 by mouth. ity of 18:38: [place] [address] Medical Branch calcitriol Yes .5ug Take 0.5 Uni vers 0.5 mcg 5-07 mcg by ity of capsule 18:38: mouth [place] 10 every Medical Wednesday, Branch Wednesday and Wednesday. calcium Yes Take by [facility] carbonate/g 5-07 mouth 3 ity o f lycine 18:38: (three) [place] (TITRALAC 10 times Medical ORAL) daily. Branch Indication s: 2 tabs doxazosin 2 Yes 2mg Take 2 mg [facility] mg tablet 5-07 by mouth ity of 18:38: at [place] 10 bedtime. Medical Branch ergocalcife Yes [id number] Take Univ ers rol, 5-07 50,000 ity of vitamin d2, 18:38: Units by [place] (VITAMIN 10 mouth Medical D2) 50,000 weekly. Branch unit capsule famotidine Yes 20mg Take 20 mg [facility] (PEPCID AC) 5-07 by mouth ity of 20 mg 18:38: daily. [place] tablet 10 Medical Branch Insulin Yes 5U inject 5 Univer s NPH-Regular 5-07 Units ity of Human Rec 18:38: under the Rk as 100 unit/mL 10 skin 2 Medica l (70-30) (two) Branch injection times daily. magnesium Yes 400mg Take 400 Uni vers oxide 400 5-07 mg by ity of mg (241.3 18:38: mouth [place] mg 10 daily. Medical magnesium) Branch tablet carvedilol Yes 25mg Take 25 mg [facility] 25 mg 5-07 by mouth 2 ity of tablet 18:38: (two) [place] 10 times Medical daily with Branch meals. ferrous Yes 325mg Take 325 Unive rs sulfate 325 5-07 mg by ity of mg (65 mg 18:38: mouth 2 [place] iron) 10 (two) Medical tablet times Branch daily. sucroferric Yes 500mg Take 500 [facility] nivers oxyhydroxid 5-07 mg by ity of e 18:38: mouth. [place] (VELPHORO) 10 Medical 500 mg Chew Branch ramipriL 5 Yes 5mg Take 5 mg Un sun mg capsule 5-07 by mouth. ity of 18:38: [place] 10 Medical Branch amLODIPine Yes 5mg Take 5 mg Un sun 5 mg tablet 5-07 by mouth. ity of 18:38: [place] 10 Medical Branch calcitriol Yes .5ug Take 0.5 Uni vers 0.5 mcg 5-07 mcg by ity of capsule 18:38: mouth [place] 10 every Medical Wednesday, Branch Wednesday and Wednesday. calcium Yes Take by [facility] carbonate/g 5-07 mouth 3 ity o f lycine 18:38: (three) [place] (TITRALAC 10 times Medical ORAL) daily. Branch Indication s: 2 tabs doxazosin 2 Yes 2mg Take 2 mg [facility] mg tablet 5-07 by mouth ity of 18:38: at [place] 10 bedtime. Medical Branch ergocalcife Yes [id number] Take Univ ers rol, 5-07 50,000 ity of vitamin d2, 18:38: Units by [place] (VITAMIN 10 mouth Medical D2) 50,000 weekly. Branch unit capsule famotidine Yes 20mg Take 20 mg [facility] (PEPCID AC) 5-07 by mouth ity of 20 mg 18:38: daily. [place] tablet 10 Medical Branch Insulin Yes 5U inject 5 Univer s NPH-Regular 5-07 Units ity of Human Rec 18:38: under the Rk as 100 unit/mL 10 skin 2 Medica l (70-30) (two) Branch injection times daily. magnesium Yes 400mg Take 400 Uni vers oxide 400 5-07 mg by ity of mg (241.3 18:38: mouth [place] mg 10 daily. Medical magnesium) Branch tablet carvedilol Yes 25mg Take 25 mg [facility] 25 mg 5-07 by mouth 2 ity of tablet 18:38: (two) [place] 10 times Medical daily with Branch meals. ferrous Yes 325mg Take 325 Unive rs sulfate 325 5-07 mg by ity of mg (65 mg 18:38: mouth 2 [place] iron) 10 (two) Medical tablet times Branch daily. sucroferric Yes 500mg Take 500 [facility] oxyhydroxid 5-07 mg by ity of e 18:38: mouth. [place] (VELPHORO) 10 Medical 500 mg Chew Branch ramipriL 5 Yes 5mg Take 5 mg Un sun mg capsule 07 by mouth. ity of 18:38: [place] 10 Medical Branch amLODIPine Yes 5mg Take 5 mg Un sun 5 mg tablet 07 by mouth. ity of 18:38: [place] 10 Medical Branch calcitriol Yes .5ug Take 0.5 Uni vers 0.5 mcg 5-07 mcg by ity of capsule 18:38: mouth [place] 10 every Medical Wednesday, Branch Wednesday and Wednesday. calcium Yes Take by [facility] carbonate/g 5-07 mouth 3 ity o f lycine 18:38: (three) [place] (TITRALAC 10 times Medical ORAL) daily. Branch Indication s: 2 tabs doxazosin 2 Yes 2mg Take 2 mg [facility] mg tablet 07 by mouth ity of 18:38: at [place] 10 bedtime. Medical Branch ergocalcife Yes [id number] Take Univ ers rol, 5-07 50,000 ity of vitamin d2, 18:38: Units by [place] (VITAMIN 10 mouth Medical D2) 50,000 weekly. Branch unit capsule famotidine Yes 20mg Take 20 mg [facility] n[facility] (PEPCID AC) 507 by mouth ity of 20 mg 18:38: daily. [place] tablet 10 Medical Branch Insulin Yes 5U inject 5 Univer s NPH-Regular 5-07 Units ity of Human Rec 18:38: under the Rk as 100 unit/mL 10 skin 2 Medica l (70-30) (two) Branch injection times daily. magnesium Yes 400mg Take 400 Uni vers oxide 400 5-07 mg by ity of mg (241.3 18:38: mouth [place] mg 10 daily. Medical magnesium) Branch tablet carvedilol Yes 25mg Take 25 mg [facility] 25 mg 5-07 by mouth 2 ity of tablet 18:38: (two) [place] 10 times Medical daily with Branch meals. ferrous Yes 325mg Take 325 Unive rs sulfate 325 5-07 mg by ity of mg (65 mg 18:38: mouth 2 [place] iron) 10 (two) Medical tablet times Branch daily. sucroferric Yes 500mg Take 500 U nivers oxyhydroxid 5-07 mg by ity of e 18:38: mouth. [place] (VELPHORO) 10 Medical 500 mg Chew Branch ramipriL 5 Yes 5mg Take 5 mg Un sun mg capsule 5-07 by mouth. ity of 18:38: [place] [address] Medical Branch amLODIPine Yes 5mg Take 5 mg Un usn 5 mg tablet 5-07 by mouth. ity of 18:38: [place] [address] Medical Branch lisinopril 2020-0 2020- No 20mg Take 20 mg [facility] 20 mg 5-07 05-07 by mouth 2 ity of tablet 18:20: 00:00 (two) [place] 01 :00 times Medical daily. Branch sevelamer 2020-0 2020- No 800mg Take 800 Un sun 800 mg 5-07 05-07 mg by ity of tablet 18:20: 00:00 mouth 3 [place] 01 :00 (three) Medical times [place] daily with meals. lisinopril 2020- No 20mg Take 20 mg [facility] 20 mg 5-07 05-07 by mouth 2 ity of tablet 18:20: 00:00 (two) [place] 01 :00 times Medical daily. Branch sevelamer 2020-0 2020- No 800mg Take 800 Un sun 800 mg 5-07 05-07 mg by ity of tablet 18:20: 00:00 mouth 3 [place] 01 :00 (three) Medical times [place] daily with meals. amLODIPine 0 2020- No 5mg Take 5 mg [facility] nivers 5 mg tablet 5- 05-07 by mouth ity of 18:18: 00:00 daily. [place] 42 :00 Medical Branch amLODIPine 2020-0 2020- No 5mg Take 5 mg [facility] nivers 5 mg tablet 5- 05-07 by mouth ity of 18:18: 00:00 daily. [place] 42 :00 Medical Branch calcitriol Yes .5ug Take 0.5 Uni vers 0.5 mcg 5-07 mcg by ity of capsule 13:38: mouth [place] [address] every Medical Wednesday, Branch Wednesday and Wednesday. calcium Yes Take by [facility] carbonate/g 5-07 mouth 3 ity o f lycine 13:38: (three) [place] (TITRALAC 10 times Medical ORAL) daily. Branch Indication s: 2 tabs doxazosin 2 Yes 2mg Take 2 mg [facility] nivers mg tablet 5-07 by mouth ity of 13:38: at [place] 10 bedtime. Medical Branch ergocalcife Yes [id number] Take Univ ers rol, 5-07 50,000 ity of vitamin d2, 13:38: Units by [place] (VITAMIN 10 mouth Medical D2) 50,000 weekly. Branch unit capsule famotidine Yes 20mg Take 20 mg [facility] (PEPCID AC) 5-07 by mouth ity of 20 mg 13:38: daily. [place] tablet 10 Medical Branch Insulin Yes 5U inject 5 Univer s NPH-Regular 5-07 Units ity of Human Rec 13:38: under the Rk as 100 unit/mL 10 skin 2 Medica l (70-30) (two) Branch injection times daily. magnesium Yes 400mg Take 400 Uni vers oxide 400 5-07 mg by ity of mg (241.3 13:38: mouth [place] mg 10 daily. Medical magnesium) Branch tablet carvedilol Yes 25mg Take 25 mg [facility] nivers 25 mg 5-07 by mouth 2 ity of tablet 13:38: (two) [place] 10 times Medical daily with Branch meals. ferrous Yes 325mg Take 325 Unive rs sulfate 325 5-07 mg by ity of mg (65 mg 13:38: mouth 2 [place] iron) 10 (two) Medical tablet times Branch daily. sucroferric Yes 500mg Take 500 U nivers oxyhydroxid 5-07 mg by ity of e 13:38: mouth. [place] (VELPHORO) 10 Medical 500 mg Chew Branch ramipriL 5 Yes 5mg Take 5 mg Un sun mg capsule 5-07 by mouth. ity of 13:38: [address] Branch amLODIPine 0 Yes 5mg Take 5 mg Un sun 5 mg tablet 5-07 by mouth. ity of 13:38: [address] Branch azelastine Yes [id number] 1{spray Use 1 [facility] 137 mcg 5-07 } [place] in ity of (0.1 %) 00:00: each [place] nasal spray 00 nostril 2 Med ical (two) Branch times daily. Use in each nostril as directed azelastine 2020-0 Yes [id number] 1{spray Use 1 [facility] 137 mcg 5-07 } [place] in ity of (0.1 %) 00:00: each [place] nasal spray 00 nostril 2 Med ical (two) Branch times daily. Use in each nostril as directed azelastine 202-0 Yes [id number] 1{spray Use 1 [facility] 137 mcg 5-07 } [place] in ity of (0.1 %) 00:00: each [place] nasal spray 00 nostril 2 Med ical (two) Branch times daily. Use in each nostril as directed azelastine 202-0 Yes [id number] 1{spray Use 1 [facility] 137 mcg 5-07 } [place] in ity of (0.1 %) 00:00: each [place] nasal spray 00 nostril 2 Med ical (two) Branch times daily. Use in each nostril as directed azelastine 2020-0 Yes [id number] 1{spray Use 1 [facility] 137 mcg 5-07 } [place] in ity of (0.1 %) 00:00: each [place] nasal spray 00 nostril 2 Med ical (two) Branch times daily. Use in each nostril as directed azelastine 2020-0 Yes [id number] 1{spray Use 1 [facility] 137 mcg 5-07 } [place] in ity of (0.1 %) 00:00: each [place] nasal spray 00 nostril 2 Med ical (two) Branch times daily. Use in each nostril as directed azelastine 2020-0 Yes [id number] 1{spray Use 1 [facility] 137 mcg 5-07 } [place] in ity of (0.1 %) 00:00: each [place] nasal spray 00 nostril 2 Med ical (two) Branch times daily. Use in each nostril as directed azelastine 2020-0 Yes [id number] 1{spray Use 1 [facility] 137 mcg 5-07 } [place] in ity of (0.1 %) 00:00: each [place] nasal spray 00 nostril 2 Med ical (two) Branch times daily. Use in each nostril as directed azelastine 2020-0 Yes [id number] 1{spray Use 1 [facility] 137 mcg 5-07 } [place] in ity of (0.1 %) 00:00: each [place] nasal spray 00 nostril 2 Med ical (two) Branch times daily. Use in each nostril as directed azelastine 2020-0 Yes [id number] 1{spray Use 1 [facility] 137 mcg 5-07 } [place] in ity of (0.1 %) 00:00: each [place] nasal spray 00 nostril 2 Med ical (two) Branch times daily. Use in each nostril as directed azelastine 2020-0 Yes [id number] 1{spray Use 1 [facility] 137 mcg 5-07 } [place] in ity of (0.1 %) 00:00: each [place] nasal spray 00 nostril 2 Med ical (two) Branch times daily. Use in each nostril as directed azelastine 2020-0 Yes [id number] 1{spray Use 1 [facility] 137 mcg 5-07 } [place] in ity of (0.1 %) 00:00: each [place] nasal spray 00 nostril 2 Med ical (two) Branch times daily. Use in each nostril as directed azelastine 2020-0 Yes [id number] 1{spray Use 1 [facility] 137 mcg 5-07 } [place] in ity of (0.1 %) 00:00: each [place] nasal spray 00 nostril 2 Med ical (two) Branch times daily. Use in each nostril as directed lidocaine-p 2020-0 Yes APPLY A Uni vers rilocaine 4-07 THIN LAYER ity of 2.5-2.5 % 00:00: TO ACCESS Rk as cream 00 AREA 1 Medical HOUR Branch BEFORE DIALYSIS TREATMENT Wednesday AND WEDNESDAY lidocaine-p 2020-0 Yes APPLY A Uni vers rilocaine 4-07 THIN LAYER ity of 2.5-2.5 % 00:00: TO ACCESS Rk as cream 00 AREA 1 Medical HOUR Branch BEFORE DIALYSIS TREATMENT Wednesday AND WEDNESDAY lidocaine-p 2020-0 Yes APPLY A Uni vers rilocaine 4-07 THIN LAYER ity of 2.5-2.5 % 00:00: TO ACCESS Rk as cream 00 AREA 1 Medical HOUR Branch BEFORE DIALYSIS TREATMENT Wednesday AND WEDNESDAY lidocaine-p 2020-0 Yes APPLY A Uni vers rilocaine 4-07 THIN LAYER ity of 2.5-2.5 % 00:00: TO ACCESS Rk as cream 00 AREA 1 Medical HOUR Branch BEFORE DIALYSIS TREATMENT Wednesday AND WEDNESDAY lidocaine-p 2020-0 Yes APPLY A Uni vers rilocaine 4-07 THIN LAYER ity of 2.5-2.5 % 00:00: TO ACCESS Rk as cream 00 AREA 1 Medical HOUR Branch BEFORE DIALYSIS TREATMENT Wednesday AND WEDNESDAY lidocaine-p 2020- Yes APPLY A Uni vers rilocaine 4-07 THIN LAYER ity of 2.5-2.5 % 00:00: TO ACCESS Rk as cream 00 AREA 1 Medical HOUR Branch BEFORE DIALYSIS TREATMENT Wednesday AND WEDNESDAY lidocaine-p Yes APPLY A Uni vers rilocaine 4-07 THIN LAYER ity of 2.5-2.5 % 00:00: TO ACCESS Rk as cream 00 AREA 1 Medical HOUR Branch BEFORE DIALYSIS TREATMENT Wednesday AND WEDNESDAY lidocaine-p Yes APPLY A Uni vers rilocaine 4-07 THIN LAYER ity of 2.5-2.5 % 00:00: TO ACCESS Rk as cream 00 AREA 1 Medical HOUR Branch BEFORE DIALYSIS TREATMENT Wednesday AND WEDNESDAY lidocaine-p 2020- Yes APPLY A Uni vers rilocaine 4-07 THIN LAYER ity of 2.5-2.5 % 00:00: TO ACCESS Rk as cream 00 AREA 1 Medical HOUR Branch BEFORE DIALYSIS TREATMENT Wednesday AND WEDNESDAY lidocaine-p 2020-0 Yes APPLY A Uni vers rilocaine 4-07 THIN LAYER ity of 2.5-2.5 % 00:00: TO ACCESS Rk as cream 00 AREA 1 Medical HOUR Branch BEFORE DIALYSIS TREATMENT Wednesday AND WEDNESDAY lidocaine-p 2020-0 Yes APPLY A Uni vers rilocaine 4-07 THIN LAYER ity of 2.5-2.5 % 00:00: TO ACCESS Rk as cream 00 AREA 1 Medical HOUR Branch BEFORE DIALYSIS TREATMENT Wednesday AND WEDNESDAY lidocaine-p 2020-0 Yes APPLY A Uni vers rilocaine 4-07 THIN LAYER ity of 2.5-2.5 % 00:00: TO ACCESS Rk as cream 00 AREA 1 Medical HOUR Branch BEFORE DIALYSIS TREATMENT Wednesday AND WEDNESDAY lidocaine-p 2020-0 Yes APPLY A Uni vers rilocaine 4-07 THIN LAYER ity of 2.5-2.5 % 00:00: TO ACCESS Rk as cream 00 AREA 1 Medical HOUR Branch BEFORE DIALYSIS TREATMENT Wednesday AND WEDNESDAY lidocaine-p 2020- No APPLY OVER [facility] rilocaine 09-19 FISTULA ity of cream 00:00: 00:00 30-40 [place] 00 :00 MINUTES Medical PRIOR TO Branch DIALYSIS TREATMENT lidocaine-p 2020- No APPLY OVER [facility] rilocaine 09-19 FISTULA ity of cream 00:00: 00:00 30-40 [place] 00 :00 MINUTES Medical PRIOR TO Branch DIALYSIS TREATMENT amLODIPine 2020- No Take 1 Univ ers 5 mg tablet 08-15- tablet by it y of 00:00: 00:00 mouth once [place] 00 :00 daily Medical Branch amLODIPine 2020- No Take 1 Univ ers 5 mg tablet 08-15- tablet by it y of 00:00: 00:00 mouth once [place] 00 :00 daily Medical Branch HYDROcodone 2021- No [id number] 1{tbl} Q6H Take 1 [facility] -acetaminop 1-29 07-[address] [facility] ([place]) 00:00: 00:00 mouth [facility] 5-325 mg 00 :00 every 6 l per tablet (six) hours as needed for moderate pain for up to 5 days .acute pain. Max Daily Amount: 4 tablets Insulin 2018-06 Yes 5U inject 5 Univer s NPH-Regular 2-30 Units ity of Human Rec 21:40: under the Rk as 100 unit/mL 48 skin 2 Medica l (70-30) (two) Branch injection times daily. lisinopril 2018-06 Yes 20mg Take 20 mg U nivers 20 mg 2-30 by mouth 2 ity of tablet 21:40: (two) [place] 48 times Medical daily. Branch magnesium 2018-06 Yes 400mg Take 400 Uni vers oxide 400 2-30 mg by ity of mg (241.3 21:40: mouth [place] mg 48 daily. Medical magnesium) Branch tablet sevelamer 2018-06 Yes 800mg Take 800 Uni vers 800 mg 2-30 mg by ity of tablet 21:40: mouth 3 [place] 48 (three) Medical times Branch daily with meals. amLODIPine 2018-06 Yes 5mg Take 5 mg Un sun 5 mg tablet 2-30 by mouth ity of 21:40: daily. [place] [address] Medical Branch carvedilol 2018-06 Yes 25mg Take 25 mg U nivers 25 mg 2-30 by mouth 2 ity of tablet 21:40: (two) [place] [address] times Medical daily with Branch meals. ferrous 2018-06 Yes 325mg Take 325 Unive rs sulfate 325 2-30 mg by ity of mg (65 mg 21:40: mouth 2 [place] iron) 48 (two) Medical tablet times Branch daily. Insulin 2018-06 Yes 5U inject 5 Univer s NPH-Regular 2-30 Units ity of Human Rec 21:40: under the Rk as 100 unit/mL 48 skin 2 Medica l (70-30) (two) Branch injection times daily. lisinopril 2018-06 Yes 20mg Take 20 mg U nivers 20 mg 2-30 by mouth 2 ity of tablet 21:40: (two) [place] [address] times Medical daily. Branch magnesium 2018-06 Yes 400mg Take 400 Uni vers oxide 400 2-30 mg by ity of mg (241.3 21:40: mouth [place] mg 48 daily. Medical magnesium) Branch tablet sevelamer 2018-06 Yes 800mg Take 800 Uni vers 800 mg 2-30 mg by ity of tablet 21:40: mouth 3 [place] 48 (three) Medical times Branch daily with meals. amLODIPine 2018-06 Yes 5mg Take 5 mg Un sun 5 mg tablet 2-30 by mouth ity of 21:40: daily. [place] [address] Medical Branch carvedilol 2018-06 Yes 25mg Take 25 mg U nivers 25 mg 2-30 by mouth 2 ity of tablet 21:40: (two) [place] [address] times Medical daily with Branch meals. ferrous 2018-06 Yes 325mg Take 325 Unive rs sulfate 325 2-30 mg by ity of mg (65 mg 21:40: mouth 2 [place] iron) 48 (two) Medical tablet times Branch daily. Insulin 2018-06 Yes 5U inject 5 Univer s NPH-Regular 2-30 Units ity of Human Rec 21:40: under the Rk as 100 unit/mL 48 skin 2 Medica l (70-30) (two) Branch injection times daily. lisinopril 2018-06 Yes 20mg Take 20 mg U nivers 20 mg 2-30 by mouth 2 ity of tablet 21:40: (two) [place] 48 times Medical daily. Branch magnesium 2018-06 Yes 400mg Take 400 Uni vers oxide 400 2-30 mg by ity of mg (241.3 21:40: mouth [place] mg 48 daily. Medical magnesium) Branch tablet sevelamer 2018-06 Yes 800mg Take 800 Uni vers 800 mg 2-30 mg by ity of tablet 21:40: mouth 3 [place] 48 (three) Medical times Branch daily with meals. amLODIPine 2018-06 Yes 5mg Take 5 mg Un sun 5 mg tablet 2-30 by mouth ity of 21:40: daily. [place] [address] Medical Branch carvedilol 2018-06 Yes 25mg Take 25 mg U nivers 25 mg 2-30 by mouth 2 ity of tablet 21:40: (two) [place] [address] times Medical daily with Branch meals. ferrous 2018-06 Yes 325mg Take 325 Unive rs sulfate 325 2-30 mg by ity of mg (65 mg 21:40: mouth 2 [place] iron) 48 (two) Medical tablet times Branch daily. Insulin 2018-06 Yes 5U inject 5 Univer s NPH-Regular 2-30 Units ity of Human Rec 21:40: under the Rk as 100 unit/mL 48 skin 2 Medica l (70-30) (two) Branch injection times daily. lisinopril 2018-06 Yes 20mg Take 20 mg U nivers 20 mg 2-30 by mouth 2 ity of tablet 21:40: (two) [place] [address] times Medical daily. Branch magnesium 2018-06 Yes 400mg Take 400 Uni vers oxide 400 2-30 mg by ity of mg (241.3 21:40: mouth [place] mg 48 daily. Medical magnesium) Branch tablet sevelamer 2018-06 Yes 800mg Take 800 Uni vers 800 mg 2-30 mg by ity of tablet 21:40: mouth 3 [place] 48 (three) Medical times Branch daily with meals. amLODIPine 2018-06 Yes 5mg Take 5 mg Un sun 5 mg tablet 2-30 by mouth ity of 21:40: daily. [place] [address] Medical Branch carvedilol 2018-06 Yes 25mg Take 25 mg U nivers 25 mg 2-30 by mouth 2 ity of tablet 21:40: (two) [place] [address] times Medical daily with Branch meals. ferrous 2018-06 Yes 325mg Take 325 Unive rs sulfate 325 2-30 mg by ity of mg (65 mg 21:40: mouth 2 [place] iron) 48 (two) Medical tablet times Branch daily. Insulin 2018-06 Yes 5U inject 5 Univer s NPH-Regular 2-30 Units ity of Human Rec 21:40: under the Rk as 100 unit/mL 48 skin 2 Medica l (70-30) (two) Branch injection times daily. lisinopril 2018-06 Yes 20mg Take 20 mg U nivers 20 mg 2-30 by mouth 2 ity of tablet 21:40: (two) [place] 48 times Medical daily. Branch magnesium 2018-06 Yes 400mg Take 400 Uni vers oxide 400 2-30 mg by ity of mg (241.3 21:40: mouth [place] mg 48 daily. Medical magnesium) Branch tablet sevelamer 2018-06 Yes 800mg Take 800 Uni vers 800 mg 2-30 mg by ity of tablet 21:40: mouth 3 [place] 48 (three) Medical times Branch daily with meals. amLODIPine 2018-06 Yes 5mg Take 5 mg Un sun 5 mg tablet 2-30 by mouth ity of 21:40: daily. [place] Medical Branch carvedilol 2018-06 Yes 25mg Take 25 mg U nivers 25 mg 2-30 by mouth 2 ity of tablet 21:40: (two) [place] 48 times Medical daily with Branch meals. ferrous 2018-06 Yes 325mg Take 325 Unive rs sulfate 325 2-30 mg by ity of mg (65 mg 21:40: mouth 2 [place] iron) 48 (two) Medical tablet times Branch daily. Insulin 2018-06 Yes 5U inject 5 Univer s NPH-Regular 2-30 Units ity of Human Rec 21:40: under the Rk as 100 unit/mL 48 skin 2 Medica l (70-30) (two) Branch injection times daily. lisinopril 2018-06 Yes 20mg Take 20 mg U nivers 20 mg 2-30 by mouth 2 ity of tablet 21:40: (two) [place] 48 times Medical daily. Branch magnesium 2018-06 Yes 400mg Take 400 Uni vers oxide 400 2-30 mg by ity of mg (241.3 21:40: mouth [place] mg 48 daily. Medical magnesium) Branch tablet sevelamer 2018-06 Yes 800mg Take 800 Uni vers 800 mg 2-30 mg by ity of tablet 21:40: mouth 3 [place] 48 (three) Medical times Branch daily with meals. amLODIPine 2018-06 Yes 5mg Take 5 mg Un sun 5 mg tablet 2-30 by mouth ity of 21:40: daily. [place] [address] Medical Branch carvedilol 2018-06 Yes 25mg Take 25 mg U nivers 25 mg 2-30 by mouth 2 ity of tablet 21:40: (two) [place] [address] times Medical daily with Branch meals. ferrous 2018-06 Yes 325mg Take 325 Unive rs sulfate 325 2-30 mg by ity of mg (65 mg 21:40: mouth 2 [place] iron) 48 (two) Medical tablet times Branch daily. Insulin 2018-06 Yes 5U inject 5 Univer s NPH-Regular 2-30 Units ity of Human Rec 21:40: under the Rk as 100 unit/mL 48 skin 2 Medica l (70-30) (two) Branch injection times daily. lisinopril 2018-06 Yes 20mg Take 20 mg U nivers 20 mg 2-30 by mouth 2 ity of tablet 21:40: (two) [place] [address] times Medical daily. Branch magnesium 2018-06 Yes 400mg Take 400 Uni vers oxide 400 2-30 mg by ity of mg (241.3 21:40: mouth [place] mg 48 daily. Medical magnesium) Branch tablet sevelamer 2018-06 Yes 800mg Take 800 Uni vers 800 mg 2-30 mg by ity of tablet 21:40: mouth 3 [place] [address] (three) Medical times [place] daily with meals. amLODIPine 2018-06 Yes 5mg Take 5 mg Un sun 5 mg tablet 2-30 by mouth ity of 21:40: daily. [place] [address] Medical Branch carvedilol 2018-06 Yes 25mg Take 25 mg U nivers 25 mg 2-30 by mouth 2 ity of tablet 21:40: (two) [place] [address] times Medical daily with Branch meals. ferrous 2018-06 Yes 325mg Take 325 Unive rs sulfate 325 2-30 mg by ity of mg (65 mg 21:40: mouth 2 [place] iron) 48 (two) Medical tablet times Branch daily. Insulin 2018-06 Yes 5U inject 5 Univer s NPH-Regular 2-30 Units ity of Human Rec 21:40: under the [place] as 100 unit/mL 48 skin 2 Medica l (70-30) (two) Branch injection times daily. lisinopril 2018-06 Yes 20mg Take 20 mg U nivers 20 mg 2-30 by mouth 2 ity of tablet 21:40: (two) [place] [address] times Medical daily. Branch magnesium 2018-06 Yes 400mg Take 400 Uni vers oxide 400 2-30 mg by ity of mg (241.3 21:40: mouth [place] mg 48 daily. Medical magnesium) Branch tablet sevelamer 2018-06 Yes 800mg Take 800 Uni vers 800 mg 2-30 mg by ity of tablet 21:40: mouth 3 [place] 48 (three) Medical times Branch daily with meals. amLODIPine 2018-06 Yes 5mg Take 5 mg Un sun 5 mg tablet 2-30 by mouth ity of 21:40: daily. [place] [address] Medical Branch carvedilol 2018-06 Yes 25mg Take 25 mg U nivers 25 mg 2-30 by mouth 2 ity of tablet 21:40: (two) [place] [address] times Medical daily with Branch meals. ferrous 2018-06 Yes 325mg Take 325 Unive rs sulfate 325 2-30 mg by ity of mg (65 mg 21:40: mouth 2 [place] iron) 48 (two) Medical tablet times Branch daily. Insulin 2018-06 Yes 5U inject 5 Univer s NPH-Regular 2-30 Units ity of Human Rec 21:40: under [place] 100 unit/mL 48 skin 2 Medica l (70-30) (two) Branch injection times daily. lisinopril 2018-06 Yes 20mg Take 20 mg U nivers 20 mg 2-30 by mouth 2 ity of tablet 21:40: (two) [place] [address] times Medical daily. Branch magnesium 2018-06 Yes 400mg Take 400 Uni vers oxide 400 2-30 mg by ity of mg (241.3 21:40: mouth [place] mg 48 daily. Medical magnesium) Branch tablet sevelamer 2018-06 Yes 800mg Take 800 Uni vers 800 mg 2-30 mg by ity of tablet 21:40: mouth 3 [place] 48 (three) Medical times Branch daily with meals. amLODIPine 2018-06 Yes 5mg Take 5 mg Un sun 5 mg tablet 2-30 by mouth ity of 21:40: daily. [place] [address] Medical Branch carvedilol 2018-06 Yes 25mg Take 25 mg U nivers 25 mg 2-30 by mouth 2 ity of tablet 21:40: (two) [place] 48 times Medical daily with Branch meals. ferrous 2018- Yes 325mg Take 325 Unive rs sulfate 325 2-30 mg by ity of mg (65 mg 21:40: mouth 2 [place] iron) 48 (two) Medical tablet times [place] daily. ergocalcife 2018-06 Yes [id number] Take Univ ers rol, 2-30 50,000 ity of vitamin d2, 21:40: Units by [place] (VITAMIN 47 mouth Medical D2) 50,000 weekly. Branch unit capsule famotidine 2018-06 Yes 20mg Take 20 mg U nivers (PEPCID AC) 2-30 by mouth ity of 20 mg 21:40: daily. [place] tablet 47 Medical [place] ergocalcife 2018-06 Yes [id number] Take Univ ers rol, 2-30 50,000 ity of vitamin d2, 21:40: Units by [place] (VITAMIN 47 mouth Medical D2) 50,000 weekly. Branch unit capsule famotidine 2018-06 Yes 20mg Take 20 mg U nivers (PEPCID AC) 2-30 by mouth ity of 20 mg 21:40: daily. [place] tablet 47 Medical [place] ergocalcife 2018-06 Yes [id number] Take Univ ers rol, 2-30 50,000 ity of vitamin d2, 21:40: Units by [place] (VITAMIN 47 mouth Medical D2) 50,000 weekly. Branch unit capsule famotidine 2018-06 Yes 20mg Take 20 mg U nivers (PEPCID AC) 2-30 by mouth ity of 20 mg 21:40: daily. [place] tablet 47 Medical [place] ergocalcife 2018-06 Yes [id number] Take Univ ers rol, 2-30 50,000 ity of vitamin d2, 21:40: Units by [place] (VITAMIN 47 mouth Medical D2) 50,000 weekly. Branch unit capsule famotidine 2018-06 Yes 20mg Take 20 mg U nivers (PEPCID AC) 2-30 by mouth ity of 20 mg 21:40: daily. [place] tablet [address] [place] [address] ergocalcife 2018-06 Yes [id number] Take Univ ers rol, 2-30 50,000 ity of vitamin d2, 21:40: Units by [place] (VITAMIN 47 mouth Medical D2) 50,000 weekly. Branch unit capsule famotidine 2018-06 Yes 20mg Take 20 mg U nivers (PEPCID AC) 2-30 by mouth ity of 20 mg 21:40: daily. [address] ergocalcife 2018-06 Yes [id number] Take Univ ers rol, 2-30 50,000 ity of vitamin d2, 21:40: Units by [place] (VITAMIN 47 mouth Medical D2) 50,000 weekly. Branch unit capsule famotidine 2018-06 Yes 20mg Take 20 mg U nivers (PEPCID AC) 2-30 by mouth ity of 20 mg 21:40: daily. [address] ergocalcife 2018-06 Yes [id number] Take Univ ers rol, 2-30 50,000 ity of vitamin d2, 21:40: Units by [place] (VITAMIN 47 mouth Medical D2) 50,000 weekly. Branch unit capsule famotidine 2018-06 Yes 20mg Take 20 mg U nivers (PEPCID AC) 2-30 by mouth ity of 20 mg 21:40: daily. [address] ergocalcife 2018-06 Yes [id number] Take [facility] ers rol, 2-30 50,000 ity of vitamin d2, 21:40: Units by [place] (VITAMIN 47 mouth Medical D2) 50,000 weekly. Branch unit capsule famotidine 2018-06 Yes 20mg Take 20 mg U nivers (PEPCID AC) 2-30 by mouth ity of 20 mg 21:40: daily. [address] ergocalcife 2018-06 Yes [id number] Take Univ ers rol, 2-30 50,000 ity of vitamin d2, 21:40: Units by [place] (VITAMIN 47 mouth Medical D2) 50,000 weekly. Branch unit capsule famotidine 2018-06 Yes 20mg Take 20 mg U nivers (PEPCID AC) 2-30 by mouth ity of 20 mg 21:40: daily. [address] calcitriol 2018-06 Yes .5ug Take 0.5 Uni vers 0.5 mcg 2-30 mcg by ity of capsule 21:36: mouth [place] 25 every Medical Wednesday, Branch Wednesday and Wednesday. calcium 2018- Yes Take by Univers carbonate/g 2-30 mouth 3 ity o f lycine 21:36: (three) [place] (TITRALAC 25 times Medical ORAL) daily. Branch Indication s: 2 tabs doxazosin 2 2018-06 Yes 2mg Take 2 mg U nivers mg tablet 2-30 by mouth ity of 21:36: at [place] 25 bedtime. Medical Branch calcitriol 2018-06 Yes .5ug Take 0.5 Uni vers 0.5 mcg 2-30 mcg by ity of capsule 21:36: mouth [place] 25 every Medical Wednesday, Branch Wednesday and Wednesday. calcium 2018-06 Yes Take by Univers carbonate/g 2-30 mouth 3 ity o f lycine 21:36: (three) [place] (TITRALAC 25 times Medical ORAL) daily. Branch Indication s: 2 tabs doxazosin 2 2018-06 Yes 2mg Take 2 mg U nivers mg tablet 2-30 by mouth ity of 21:36: at [place] 25 bedtime. Medical Branch calcitriol 2018-06 Yes .5ug Take 0.5 Uni vers 0.5 mcg 2-30 mcg by ity of capsule 21:36: mouth [place] 25 every Medical Wednesday, Branch Wednesday and Wednesday. calcium 2018-06 Yes Take by Univers carbonate/g 2-30 mouth 3 ity o f lycine 21:36: (three) [place] (TITRALAC 25 times Medical ORAL) daily. Branch Indication s: 2 tabs doxazosin 2 2018-06 Yes 2mg Take 2 mg U nivers mg tablet 2-30 by mouth ity of 21:36: at [place] 25 bedtime. Medical Branch calcitriol 2018-06 Yes .5ug Take 0.5 Uni vers 0.5 mcg 2-30 mcg by ity of capsule 21:36: mouth [place] 25 every Medical Wednesday, Branch Wednesday and Wednesday. calcium 2018-06 Yes Take by Univers carbonate/g 2-30 mouth 3 ity o f lycine 21:36: (three) [place] (TITRALAC 25 times Medical ORAL) daily. Branch Indication s: 2 tabs doxazosin 2 2018-06 Yes 2mg Take 2 mg U nivers mg tablet 2-30 by mouth ity of 21:36: at [place] 25 bedtime. Medical Branch calcitriol 2018-06 Yes .5ug Take 0.5 Uni vers 0.5 mcg 2-30 mcg by ity of capsule 21:36: mouth [place] 25 every Medical Wednesday, Branch Wednesday and Wednesday. calcium 2018-06 Yes Take by Univers carbonate/g 2-30 mouth 3 ity o f lycine 21:36: (three) [place] (TITRALAC 25 times Medical ORAL) daily. Branch Indication s: 2 tabs doxazosin 2 2018-06 Yes 2mg Take 2 mg U nivers mg tablet 2-30 by mouth ity of 21:36: at [place] 25 bedtime. Medical Branch calcitriol 2018-06 Yes .5ug Take 0.5 Uni vers 0.5 mcg 2-30 mcg by ity of capsule 21:36: mouth [place] 25 every Medical Wednesday, Branch Wednesday and Wednesday. calcium 2018-06 Yes Take by Univers carbonate/g 2-30 mouth 3 ity o f lycine 21:36: (three) [place] (TITRALAC 25 times Medical ORAL) daily. Branch Indication s: 2 tabs doxazosin 2 2018-06 Yes 2mg Take 2 mg U nivers mg tablet 2-30 by mouth ity of 21:36: at [place] 25 bedtime. Medical Branch calcitriol 2018-06 Yes .5ug Take 0.5 Uni vers 0.5 mcg 2-30 mcg by ity of capsule 21:36: mouth [place] 25 every Medical Wednesday, Branch Wednesday and Wednesday. calcium 2018-06 Yes Take by Univers carbonate/g 2-30 mouth 3 ity o f lycine 21:36: (three) [place] (TITRALAC 25 times Medical ORAL) daily. Branch Indication s: 2 tabs doxazosin 2 2018-06 Yes 2mg Take 2 mg U nivers mg tablet 2-30 by mouth ity of 21:36: at [place] 25 bedtime. Medical Branch calcitriol 2018-06 Yes .5ug Take 0.5 Uni vers 0.5 mcg 2-30 mcg by ity of capsule 21:36: mouth [place] 25 every Medical Wednesday, Branch Wednesday and Wednesday. calcium 2018-06 Yes Take by Univers carbonate/g 2-30 mouth 3 ity o f lycine 21:36: (three) [place] (TITRALAC 25 times Medical ORAL) daily. Branch Indication s: 2 tabs doxazosin 2 2018-06 Yes 2mg Take 2 mg U nivers mg tablet 2-30 by mouth ity of 21:36: at [place] 25 bedtime. Medical Branch calcitriol 2018-06 Yes .5ug Take 0.5 Uni vers 0.5 mcg 2-30 mcg by ity of capsule 21:36: mouth [place] 25 every Medical Wednesday, Branch Wednesday and Wednesday. calcium 2018-06 Yes Take by Univers carbonate/g 2-30 mouth 3 ity o f lycine 21:36: (three) [place] (TITRALAC 25 times Medical ORAL) daily. Branch Indication s: 2 tabs doxazosin 2 2018-06 Yes 2mg Take 2 mg U nivers mg tablet 2-30 by mouth ity of 21:36: at [place] 25 bedtime. Medical Branch atorvastati 2018-06 Yes 20mg Take 20 mg Univers n 20 mg 2-30 by mouth ity of tablet 21:36: at [place] 24 bedtime. Medical Branch atorvasta 2018-06 Yes 20mg Take 20 mg Univers n 20 mg 2-30 by mouth ity of tablet 21:36: at [place] 24 bedtime. Medical Branch atorvasta 2018-06 Yes 20mg Take 20 mg Univers n 20 mg 2-30 by mouth ity of tablet 21:36: at [place] 24 bedtime. Medical Branch atorvasta 2018-06 Yes 20mg Take 20 mg Univers n 20 mg 2-30 by mouth ity of tablet 21:36: at [place] 24 bedtime. Medical Branch atorvasta 2018-06 Yes 20mg Take 20 mg Univers n 20 mg 2-30 by mouth ity of tablet 21:36: at [place] 24 bedtime. Medical Branch atorvastati 2018-06 Yes 20mg Take 20 mg Univers n 20 mg 2-30 by mouth ity of tablet 21:36: at [place] 24 bedtime. Medical Branch atorvastati 2018-06 Yes 20mg Take 20 mg Univers n 20 mg 2-30 by mouth ity of tablet 21:36: at [place] 24 bedtime. Medical Branch atorvastati 2018-06 Yes 20mg Take 20 mg Univers n 20 mg 2-30 by mouth ity of tablet 21:36: at [place] 24 bedtime. Medical Branch atorvastati 2018-06 Yes 20mg Take 20 mg Univers n 20 mg 2-30 by mouth ity of tablet 21:36: at [place] 24 bedtime. Medical Branch sevelamer 2018-06- No 800mg [id number] Take 800 [facility] (RENVELA) 2-08 07-[id number] 800 mg 00:00: 00:00 3D mouth 3 [facility] tablet 00 :00 (three) l times a day with meals. ergocalcife 2019- No [id number] Take 1 Univers rol, 03-1216 capsule by ity of vitamin d2, 00:00: 05:59 mouth [place] 50,000 unit 00 :00 weekly for Me dical capsule 84 days. [place] calcitriol 2019- No [id number] .5ug Take 1 Univers 0.5 mcg 03-10 capsule by ity o f capsule 00:00: 05:59 mouth [place] 00 :00 every Medical Wednesday, Branch Wednesday and Wednesday for 90 days. carvedilol 2019- No 12.5mg Take 12.5 Univers 12.5 mg 03-09 mg by ity of tablet 21:45: 00:00 mouth 2 [place] 07 :00 (two) Medical times Branch daily with meals. amLODIPine 2018- No 5mg Take 5 mg U nivers 5 mg tablet 03-09 by mouth ity of 21:45: 00:00 daily. [place] 07 :00 Medical Branch NOVOLOG 2019- No 20U inject 20 Univ ers U-100 03-09 Units ity of INSULIN 21:45: 00:00 under the [place] ASPART SC 07 :00 skin 2 Medical (two) Branch times daily before breakfast and dinner. Indication s: Patient has not taken due to normal sugars KCL 2019- No 20meq 20 mEq, Univers (KLOR-CON 03-09 Oral, ity of M20) tablet 19:45: 19:57 ONCE, 1 [place] 20 mEq 00 :00 dose, [facility] Medical 03/09/19 at Branch 1445, Routine magnesium 2019- No 2000mg 2,000 mg, Univers sulfate in 03-09 IV ity of water 2 19:45: 19:45 Infusion, [place] gram/50 mL 00 :00 ONCE, 1 Medica l (4 %) 2,000 dose, [facility] mg 03/09/19 at piggyback 1445 Regadenoson 2019- No .4mg 0.4 mg, IV Univers (LEXISCAN) 03-09 Push, ity of injection 19:00: 18:36 ONCE, 1 [place] 0.4 mg 00 :00 dose, [facility] Medical 03/09/19 at Branch 1400, Routine
physics faculty member approving Restricted medication : ASHLEYANAY tc 2019- No 42.8mCi 42.8 Univers 99m-tetrofo 03-09 millicurie i ty of [facility] 17:56: 18:28 , [place] ([facility]) 00 :00 Intravenou Medi dori injection s, ONCE, 1 Bran ch 42.8 dose, [facility] millicurie 03/09/19 at 1300, Routine tc 2018- No 16.3mCi 16.3 Univers 99m-tetrofo 03-09 millicurie i ty of [facility] 17:15: 15:54 , [place] ([facility]) 00 :00 Intravenou Medi dori injection s, ONCE, 1 Bran ch 16.3 dose, [facility] millicurie 03/09/19 at 1215, Routine heparin 2018- No 4000U 4,000 Univers (PF) 1,000 03-09 Units, ity of unit/mL 02:30: 03:32 Slow IV [place] injection 00 :00 Push, Medical 4,000 Units ONCE, 1 Branc h dose, [facility] 03/08/19 at 2130, Routine NaCl 0.9% 2019- No 5mL 5 mL, Slow U nivers (NS) 03-09 IV Push, ity of injection 5 02:30: 04:08 ONCE, 1 [place] mL 00 :00 dose, [facility] 03/08/19 at Branch 2130, Routine doxazosin 2 2019- No [id number] 2mg Take 1 Univers mg tablet 03-09 tablet by ity of 00:00: 05:59 mouth [place] 00 :00 every Medical evening Branch for 90 days. insulin NPH 2018- 2019- No [id number] 5U inject 5 Univers and regular 03-09 Units ity of human 70-30 00:00: 05:59 under the [place] 100 unit/mL 00 :00 skin 2 Medica l (70-30) (two) Branch injection times daily before breakfast and dinner for 90 days. [facility] [employer] lisinopril 2019- No [id number] 20mg Take 1 Univers 20 mg 9-19 12-19 tablet by ity of tablet 00:00: 05:59 mouth 2 [place] 00 :00 (two) Medical times Branch daily for 90 days. magnesium 2019- No [id number] 400mg Take 400 Univers oxide 420 9-19 12-19 mg by ity of mg Tab 00:00: 05:59 mouth [place] 00 :00 daily for Medical 90 days. Branch sevelamer 2019- No [id number] 800mg Take 1 Univers 800 mg 9-19 12-19 tablet by ity of tablet 00:00: 05:59 mouth 3 [place] 00 :00 (three) Medical times Branch daily with meals for 90 days. amLODIPine 2019- No [id number] 5mg Take 1 Univers 5 mg tablet 9- 12-19 tablet by it y of 00:00: 05:59 mouth [place] 00 :00 daily for Medical 90 days. Branch carvedilol 2019- No [id number] 25mg Take 1 Univers 25 mg 9-19 12-19 tablet by ity of tablet 00:00: 05:59 mouth 2 [place] 00 :00 (two) Medical times Branch daily with meals for 90 days. atorvastati 2019- No [id number] 20mg Take 1 Univers n 20 mg 9-19 12-19 tablet by ity of tablet 00:00: 05:59 mouth at [place] 00 :00 bedtime Medical for 90 Branch days. calcium 2019- No [id number] 2{tbl} Take 2 U nivers carbonate 9-19 10-20 tablets by ity of 168 mg 00:00: 04:59 mouth 3 [place] calcium 00 :00 (three) Medical (420 mg) times Branch chewable daily with tablet meals for 30 days. famotidine 2019- No [id number] 20mg Take 1 Univers 20 mg 9-19 10-20 tablet by ity of tablet 00:00: 04:59 mouth [place] 00 :00 daily for Medical 30 days. Branch ferrous 2019- No [id number] 325mg Take 1 Un sun sulfate 325 9-19 10-20 capsule by i ty of mg (65 mg 00:00: 04:59 mouth 2 [place] iron) SR 00 :00 (two) Medical capsule times Branch daily with meals for 30 days. calcitriol 2018- 2019- No .5ug 0.5 mcg, Un sun (ROCALTROL) 03-08 Oral, ONCE i ty of capsule 0.5 18:45: 20:50 NOW, 1 Rk as mcg 00 :00 dose, [facility] 03/08/19 at Branch 1345, Routine calcium 2019-0 Yes 2{tbl} 2 tablet, Uni vers carbonate 03-08 Oral, TID ity o f (TITRALAC) 17:45: MEALS, [place] chewable 00 First dose Medic al tablet 2 on [facility] tablet 03/08/19 at 1245, Until Discontinu ed, Routine calcitriol 2019-0 Yes .5ug 0.5 mcg, Uni vers (ROCALTROL) 03-08 Oral, ity of capsule 0.5 17:45: DAILY, [place] mcg 00 First dose Medical on [facility] 03/08/19 at 1245, Until Discontinu ed, Routine lisinopril 2019-0 Yes 20mg 20 mg, Unive rs (PRINIVIL,Z 03-08 Oral, BID, it y of ESTRIL) 01:00: First dose [place] tablet 20 00 on [facility] mg 03/07/19 at Branch 2000, Until Discontinu ed, Routine amLODIPine 2019-0 Yes 5mg 5 mg, Univer s (NORVASC) 03-07 Oral, ity of tablet 5 mg 23:15: DAILY, [place] 00 First dose Medical on [facility] 03/07/19 at 1815, Until Discontinu ed, Routine morpHINE 2019-0 Yes 2mg 2 mg, Slow Uni vers injection 2 03-07 IV Push, ity of mg 22:22: Q4HPRN, [place] 33 Starting [facility] 03/07/19 at 1722, Until Discontinu ed, Routine, Pain (scale 7-10) traMADol 2019-0 Yes 50mg 50 mg, Univers (ULTRAM) 03-07 Oral, ity of tablet 50 22:22: Q6HPRN, [place] mg 24 Starting [facility] 03/07/19 at 1722, Until Discontinu ed, Routine, Pain (scale 4-6) carvedilol 2019-0 Yes 12.5mg Take 12.5 Univers 12.5 mg 9-17 mg by ity of tablet 22:09: mouth 2 [place] [address] (two) Medical times [place] daily with meals. amLODIPine 2019 Yes 5mg Take 5 mg Un sun 5 mg tablet 03-07 by mouth ity of 22:09: daily. [address] NOVOLOG 2018- Yes 20U inject 20 [facility] rs U-100 03-07 Units ity of INSULIN 22:09: under the [place] ASPART ME 16 skin 2 Medical (two) [place] times daily before breakfast and dinner. Indication s: Patient has not taken due to normal sugars doxazosin Yes 2mg 2 mg, Univers (CARDURA) 03-07 Oral, QPM, ity of tablet 2 mg 22:00: First dose [place] 00 on [facility] 03/07/19 at Branch 1700, Until Discontinu ed, Routine carvedilol Yes 25mg 25 mg, Unive rs (COREG) 03-07 Oral, BID ity of tablet 25 22:00: MEALS, [place] mg 00 First dose Medical on [facility] 03/07/19 at 1700, Until Discontinu ed, Routine insulin NPH Yes 5U 5 Units, Un sun and regular 03-07 Subcutaneo it y of human 70-30 21:30: us, BIDAC, [place] (HUMULIN 00 First dose Medic al 70-30 U-100 on [facility] INSULIN) 03/07/19 at 100 unit/mL 1630, (70-30) Until injection 5 Discontinu Units ed, Routine atropine in 2019- No ONCE INTRA Univers 0.9% sodium 03-07 PROCEDURE, i ty of chloride 21:04: 21:37 [place] syringe 00 :38 [facility] 03/07/19 at Branch 1604, Until [facility] 03/07/19 at 1637, Routine, Intra-op phenylephri 2019- No ONCE INTRA Univers ne 1 mg/10 03-07 PROCEDURE, it y of mL in NS 20:51: 21:37 Starting [place] syringe 00 :38 [facility] 03/07/19 at Branch 1551, Until [facility] 03/07/19 at 1637, Routine, Intra-op succinylcho 2019- No ONCE INTRA Univers line 03-07 PROCEDURE, ity of (QUELICIN) 20:18: 21:46 Starting [place] injection 00 :30 Tue Medical 03/07/19 at Branch 1518, Until [facility] 03/07/19 at 1646, Routine, Intra-op propofol 2019- No Intravenou Un sun injection 03-07 s, ONCE ity of 20:18: 21:37 INTRA [place] 00 :38 PROCEDURE, Medical Starting Branch [facility] 03/07/19 at 1518, Until [facility] 03/07/19 at 1637, Routine, Intra-op lidocaine 2019- No ONCE INTRA U nivers 1% 03-07 PROCEDURE, ity of (XYLOCAINE) 20:18: 21:37 Starting [place] 100 mg/10 00 :38 Tue Medical mL (1 %) 03/07/19 at [facility] injection 1518, Until Tu 03/07/19 at 1637, Routine, Intra-op FENTanyl PF 2019- No Intravenou Univers (SUBLIMAZE 03-07 s, ONCE ity o f (PF)) 20:10: 21:37 INTRA [place] injection 00 :38 PROCEDURE, Medi dori Starting Branch [facility] 03/07/19 at 1510, Until [facility] 03/07/19 at 1637, Routine, Intra-op midazolam 2018- No IV Push, Uni vers (VERSED) 03-07 ONCE INTRA ity of injection 20:08: 21:37 PROCEDURE, [place] 00 :38 Starting [facility] 03/07/19 at 1508, Until [facility] 03/07/19 at 1637, Routine, Intra-op NaCl 0.9% 2018- No CONTINUOUS U nivers (NS) IV 03-07 PRN, ity of infusion 20:07: 21:37 Starting [place] 00 :38 [facility] Medical 03/07/19 at Branch 1507, Until [facility] 03/07/19 at 1637, Routine, Intra-op ondansetron 2019- No 4mg 4 mg, Slow Univers (ZOFRAN 03-07 IV Push, ity of (PF)) 19:45: 19:01 ONCE, 1 [place] injection 4 00 :00 dose, Tue Med ical mg 03/07/19 at Branch 1445, Routine, DSU Pre-op famotidine 2019- No 20mg 20 mg, IV U nivers 20 mg in NS 03-07 Piggyback, i ty of 50 ml 19:45: 19:02 ONCE, 1 [place] (PEPCID) 20 00 :00 dose, Tue Med ical mg/50 mL 03/07/19 at [facility] Piggyback 1445, 50 20 mg mL, DSU Pre-op ondansetron 2018- Yes 4mg 4 mg, Slow Univers (ZOFRAN 03-07 IV Push, ity of (PF)) 17:34: Q6HPRN, [place] injection 4 57 Starting Medi dori mg [facility] 03/07/19 at 1234, Until Discontinu ed, Routine, Nausea and Vomiting (N/V) carvedilol 2019- No 12.5mg 12.5 mg, Univers (COREG) 03-07 Oral, ity of tablet 12.5 15:15: 16:12 ONCE, 1 [place] mg 00 :00 dose, [facility] Medical 03/07/19 at Branch 1015, Routine lisinopril 2019- No 10mg 10 mg, Univ ers (PRINIVIL,Z 03-07 Oral, ity of ESTRIL) 15:15: 16:12 ONCE, 1 [place] tablet 10 00 :00 dose, Tue Medic al mg 03/07/19 at Branch 1015, AVERY magnesium 2019- No 1g 1 g, IV Univ ers sulfate in 03-07 Piggyback, it y of D5W 1 15:00: 17:12 ONCE, 1 [place] gram/100 mL 00 :00 dose, Tue Med ical RTU IV 03/07/19 at Branch Piggyback 1 1000, 100 g mL magnesium Yes 400mg 400 mg, Univ ers oxide 03-07 Oral, BID, ity of (MAG-OX 14:15: First dose [place] 400) tablet 00 on Tue Medica l 400 mg 03/07/19 at Branch 0915, Until Discontinu ed, Routine atorvastati Yes 20mg 20 mg, Univ ers n (LIPITOR) 03-07 Oral, QHS, it y of tablet 20 02:00: First dose [place] mg 00 on [facility] 03/06/19 at Branch 2100, Until Discontinu ed, Routine famotidine Yes 20mg 20 mg, Unive rs (PEPCID AC) 03-07 Oral, BID, it y of tablet 20 01:00: First dose [place] mg 00 on [facility] 03/06/19 at Branch 2000, Until Discontinu ed, Routine carvedilol 2019- No 12.5mg 12.5 mg, Univers (COREG) 03-07 Oral, BID ity of tablet 12.5 00:15: 14:00 MEALS, [place] mg 00 :40 First dose Medical on [facility] 03/06/19 at 1915, Until Discontinu ed, Routine lisinopril 2019- No 10mg 10 mg, Univ ers (PRINIVIL,Z 03-07 Oral, ity of ESTRIL) 00:15: 14:00 DAILY, [place] tablet 10 00 :40 First dose Medi dori mg on [facility] 03/06/19 at 1915, Until Discontinu ed, Routine hydralAZINE Yes 10mg 10 mg, Univ ers (APRESOLINE 03-07 Intravenou it y of ) injection 00:08: s, Q4HPRN, [place] 10 mg 30 Starting Medical [facility] 03/06/19 at 1908, Until Discontinu ed, Routine, SBP > 180 or DBP > 110
Ind ication: Hypertensi ve Emergency heparin 2019- No 5000U 5,000 Univers 5,000 units 03-06 Units, ity o f in NS 1000 13:15: 01:35 Irrigation [place] mL for 00 :00 , DIALYSIS Medical irrigation ONCE - PT Bran ch ROOM, 1 dose, [facility] 03/06/19 at 0815, 1,000 mL insulin NPH 2019- No 10U 10 Units, Univers (HUMULIN N) 03-05 Subcutaneo i ty of injection 21:30: 22:46 us, BIDAC, [place] 10 Units 00 :15 First dose Medic al on [facility] 03/05/19 at 1630, Until Discontinu ed, Routine ergocalcife Yes [id number] 50,000 Un sun rol 03-05 Units, ity of (vitamin 14:00: Oral, [place] d2) 00 QWEEKLY, Medical (CALCIFEROL First dose Br anch ) capsule on [place] 50,000 03/05/19 at Units 0900, Until Discontinu ed, Routine sevelamer 2018- Yes 800mg 800 mg, [facility] ers (RENVELA) - Oral, TID ity o f tablet 800 13:00: MEALS, [place] mg 00 First dose Medical on [place] Branch 03/05/19 at 0800, Until Discontinu ed, Routine heparin 2019- No 5000U DIALYSIS [facility] ers (1,000 03-05 ONCE - PT ity of unit/mL, 10 04:00: 02:51 [place]OM, 1 [place] vial) 00 :00 dose, Sat Medica l 03/04/19 at Branch 2300, Routine
Dialysis catheter packing
calcium 2019- No 1000mg 1,000 mg, Un sun gluconate 03-05 IV ity of 1,000 mg in 03:00: 19:10 Piggyback, [place] NaCl 0.9% 00 :32 Q8H, 3 Medical (NS) 50 mL doses, Branch piggyback First dose on [facility] 03/04/19 at 2200, Last dose on 03/05/19 at 1400, 50 mL Sliding Yes Subcutaneo [facility] ers Scale 9-15 us, TID ity of Insulin - 02:00: MEALS+HS, Rk as Lispro 00 First dose Medical (HumaLOG) + on [facility] Branch Fsbg 03/04/19 at Testing 2100, Until Discontinu ed, Routine famotidine 2019- No 20mg 20 mg, IV U nivers 20 mg in NS 03-0516 Piggyback, i ty of 50 ml 01:00: 22:43 Q12H, [place] (PEPCID) 20 00 :21 First dose Me dical mg/50 mL 20 on [facility] Branch mg 03/04/19 at piggyback 2000, Until Discontinu ed epoetin 2019- No [id number] 10,000 [facility] 03-05 Units, ity of (PROCRIT) 01:00: 03:33 Subcutaneo [place] injection 00 :00 us, ONCE Medica l 10,000 AT 2000, 1 Branch Units dose, 03/04/19 at 2000, Routine
physics faculty member approving Restricted medication : HUNTER CERVANTES glucagon Yes 1mg 1 mg, Univers (GLUCAGEN 03-04 Intramuscu ity of DIAGNOSTIC 23:06: lar, PRN, [place] KIT) 18 Starting Medical injection 1 Sat Branch mg 03/04/19 at 1806, Until Discontinu ed, AVERY, Blood Glucose < or = 70 mg/dL and patient is unable to swallow or has mental changes. dextrose 50 Yes 25mL 25 mL, Univ ers % in water 03-04 Slow IV ity of (D50W) 23:06: Push, PRN, [place] injection 18 Starting Medica l 25 mL Sat Branch 03/04/19 at 1806, Until Discontinu ed, AVERY, Blood Glucose < or = 70 mg/dL and patient is unable to swallow or has mental status changes. acetaminoph Yes 650mg 650 mg, Un sun en 03-04 Oral, ity of (TYLENOL) 21:04: Q6HPRN, [place] tablet 650 59 Starting Medic al mg Sat Branch 03/04/19 at 1604, Until Discontinu ed, Routine, Pain (scale 1-3) diphenhydrA 2019- No 25mg 25 mg, Uni vers MINE 03-04 Slow IV ity of (BENADRYL) 18:30: 17:39 Push, [place] injection 00 :00 ONCE, 1 Medical 25 mg dose, Sat Branch 03/04/19 at 1330, STAT
IN DICATION: ANAPHYLAXI S ondansetron 2019- No 4mg 4 mg, Slow Univers (ZOFRAN 03-04 IV Push, ity of (PF)) 18:30: 17:35 ONCE, 1 [place] injection 4 00 :00 dose, Sat Med ical mg 03/04/19 at Branch 1330, AVERY dexamethaso 2019- No 10mg 10 mg, Uni vers ne 03-04 Oral, ity of (DECADRON 18:30: 17:37 ONCE, 1 [place] PHOSPHATE) 00 :00 dose, Sat Medi dori injection 03/04/19 at Bran ch 10 mg 1330, Routine CARVEDILOL 2019- No [id number] TAKE 1 Univers 6.25 mg 130 -14 TABLET BY ity of tablet 00:00: 00:00 MOUTH [place] 00 :00 TWICE Medical DAILY WITH Branch MEALS, MUST SEE DOCTOR FOR FUTURE REFILLS ferrous 2017-06 Yes [id number] 325mg Take 1 Uni vers sulfate 325 2- capsule by it y of mg (65 mg 00:00: mouth 3 [place] iron) SR 00 (three) Medical capsule times Branch daily with meals. ferrous 2017-06- No [id number] 325mg Take 1 Un sun sulfate 325 2-03-09 capsule by i ty of mg (65 mg 00:00: 00:00 mouth 3 [place] iron) SR 00 :00 (three) Medical capsule times Branch daily with meals. glipiZIDE 5 2017-06 Yes [id number] Take 1/2 Univers mg tablet 0-26 tab (2.5 ity of 00:00: mg) PO [place] 00 daily. Medical Branch glipiZIDE 5 2017-06 2019- No [id number] Take 1/2 Univers mg tablet 0-26 - tab (2.5 ity o f 00:00: 00:00 mg) PO [place] 00 :00 daily. Medical Branch diltiazem 2017-06- No 120mg Take 1 Univ ers XR 120 mg 0-24 -14 capsule by ity of 24 hr 00:00: 00:00 mouth [place] capsule 00 :00 daily. Medical Branch furosemide 2017-06 2019- No 40mg Take 1 Univ ers 40 mg 0-23 -14 tablet by ity of tablet 00:00: 00:00 mouth 2 [place] 00 :00 (two) Medical times Branch daily. Immunizations Ordered Filled Immunization Date Status Comments [facility] e Immunization Name Name JESSICA COVID-19 2021-05-23 Completed Methodis t MRNA VACCINATION 00:00:00 [facility] SARS-COV-2 COVID-19 2021-05-23 Completed Unive rsity of MODERNA BOOSTER 00:00:00 [facility] VACCINE Branch MODERNA COVID-19 2020-09-16 Completed Methodis t MRNA VACCINATION 00:00:00 [facility] SARS-COV-2 COVID-19 2020-09-16 Completed Unive rsity of MODERNA VACCINE 00:00:00 [facility] SARS-COV-2 COVID-19 2020-09-16 Completed Unive rsity of MODERNA VACCINE 00:00:[address] [place] [facility] ical Branch SARS-COV-2 COVID-19 2020-09-16 Completed Unive rsity of MODERNA VACCINE 00:00:[address] [place] [facility] ical Branch SARS-COV-2 COVID-19 2020-09-16 Completed Unive rsity of MODERNA VACCINE 00:00:00 [facility] ical Branch SARS-COV-2 COVID-19 2020-09-16 Completed Unive rsity of MODERNA VACCINE 00:00:00 [facility] ical Branch SARS-COV-2 COVID-19 2020-09-16 Completed Unive rsity of MODERNA VACCINE 00:00:00 [facility] ical Branch SARS-COV-2 COVID-19 2020-09-16 Completed Unive rsity of MODERNA VACCINE 00:00:00 [facility] ical Branch SARS-COV-2 COVID-19 2020-09-16 Completed Unive rsity of MODERNA VACCINE 00:00:00 [facility] ical Branch SARS-COV-2 COVID-19 2020-09-16 Completed Unive rsity of MODERNA VACCINE 00:00:00 [facility] ical Branch SARS-COV-2 COVID-19 2020-09-16 Completed Unive rsity of MODERNA VACCINE 00:00:00 [facility] ical Branch SARS-COV-2 COVID-19 2020-09-16 Completed Unive rsity of MODERNA VACCINE 00:00:00 [facility] ical Branch SARS-COV-2 COVID-19 2020-09-16 Completed Unive rsity of MODERNA VACCINE 00:00:00 [facility] ical Branch SARS-COV-2 COVID-19 2020-09-16 Completed Unive rsity of MODERNA VACCINE 00:00:00 [facility] ical Branch MODERNA COVID-19 2020-08-19 Completed Methodis t MRNA VACCINATION 00:00:00 [facility] SARS-COV-2 COVID-19 2020-08-19 Completed Unive rsity of MODERNA VACCINE 00:00:00 [facility] ical Branch SARS-COV-2 COVID-19 2020-08-19 Completed Unive rsity of MODERNA VACCINE 00:00:00 [facility] ical Branch SARS-COV-2 COVID-19 2020-08-19 Completed Unive rsity of MODERNA VACCINE 00:00:00 [facility] SARS-COV-2 COVID-19 2020-08-19 Completed Unive rsity of MODERNA VACCINE 00:00:00 [facility] SARS-COV-2 COVID-19 2020-08-19 Completed Unive rsity of MODERNA VACCINE 00:00:00 [facility] Branch SARS-COV-2 COVID-19 2020-08-19 Completed Unive rsity of MODERNA VACCINE 00:00:00 [facility] SARS-COV-2 COVID-19 2020-08-19 Completed Unive rsity of MODERNA VACCINE 00:00:00 [facility] Branch SARS-COV-2 COVID-19 2020-08-19 Completed Unive rsity of MODERNA VACCINE 00:00:00 [facility] Branch SARS-COV-2 COVID-19 2020-08-19 Completed Unive rsity of MODERNA VACCINE 00:00:00 [facility] Branch SARS-COV-2 COVID-19 2020-08-19 Completed Unive rsity of MODERNA VACCINE 00:00:00 [facility] Branch SARS-COV-2 COVID-19 2020-08-19 Completed Unive rsity of MODERNA VACCINE 00:00:00 [facility] Branch SARS-COV-2 COVID-19 2020-08-19 Completed Unive rsity of MODERNA VACCINE 00:00:00 [facility] Branch SARS-COV-2 COVID-19 2020-08-19 Completed Unive rsity of MODERNA VACCINE 00:00:00 [facility] Branch SARS-COV-2 COVID-19 2020-08-19 Completed Unive rsity of MODERNA VACCINE 00:00:00 [facility] Branch SARS-COV-2 COVID-19 2020-08-19 Completed Unive rsity of MODERNA VACCINE 00:00:00 [facility] Vital Signs Vital Name Observation Time Observation Value Comments Source Systolic blood 2020-12-04 18:36:00 149 mm[Hg] Univer sity of pressure [facility] Diastolic blood 2020-12-04 18:36:00 101 mm[Hg] Unive rsity of pressure [facility] Heart rate 2020-12-04 18:34:00 93 /min [facility] [place] [facility] Body temperature 2020-12-04 18:34:00 36.67 Leslie [facility] [place] [facility] Respiratory rate 2020-12-04 18:34:00 17 /min [facility] [place] [facility] Body height 2020-12-04 18:34:00 175.3 cm [facility] [place] [facility] Body weight 2020-12-04 18:34:00 111.131 kg [facility] [place] [facility] BMI 2020-12-04 18:34:00 36.18 kg/m2 [facility] [place] [facility] Oxygen saturation in 2020-12-04 18:34:00 99 /min University of Arterial blood by [place] Vest[facility] dori Pulse oximetry Branch Heart rate 2020-10-25 19:18:00 88 /min [facility] [place] [facility] Systolic blood 2020-10-25 18:35:00 139 mm[Hg] Univer sity of pressure [place] [facility] Diastolic blood 2020-10-25 18:35:00 85 mm[Hg] Unive rsity of pressure [place] [facility] Body temperature 2020-10-25 18:35:00 36.5 Leslie [facility] [place] [facility] Body height 2020-10-25 18:35:00 175.3 cm [facility] [place] [facility] Body weight 2020-10-25 18:35:00 110.224 kg [facility] [place] [facility] BMI 2020-10-25 18:35:00 35.88 kg/m2 [facility] [place] [facility] Oxygen saturation in 2020-10-25 18:35:00 99 /min University of Arterial blood by [place] Vest[facility] dori Pulse oximetry Branch Heart rate 2020-10-25 19:18:00 88 /min [facility] [place] [facility] Systolic blood 2020-10-25 18:35:00 139 mm[Hg] Univer sity of pressure [place] [facility] Diastolic blood 2020-10-25 18:35:00 85 mm[Hg] Unive rsity of pressure [place] [facility] Body temperature 2020-10-25 18:35:00 36.5 Leslie [facility] [place] [facility] Body height 2020-10-25 18:35:00 175.3 cm [facility] [place] [facility] Body weight 2020-10-25 18:35:00 110.224 [facility] BMI 2020-10-25 18:35:00 35[facility]88 [facility]2 [facility] Oxygen saturation in 2020-10-25 18:35:00 99 /min University of Arterial blood by [facility] Pulse oximetry Branch Systolic blood 2019-03-09 20:00:00 136 mm[Hg] Univer sity of pressure [facility] Diastolic blood 2019-03-09 20:00:00 87 mm[Hg] Unive rsity of pressure [facility] Heart rate 2019-03-09 20:00:00 80 /min [facility] Body temperature 2019-03-09 20:00:00 36.72 Leslie [facility] 2019-03-09 20:00:00 18 /min [facility] Oxygen saturation in 2019-03-09 20:00:00 98 /min University [facility] Arterial blood by [facility] Pulse oximetry Branch Body height 2019-03-09 17:43:00 175.3 cm [facility] Body weight 2019-03-09 17:43:00 108.41 kg [facility] BMI 2019-03-09 17:43:00 35.29 kg/m2 [facility] Systolic blood 2022-06-10 16:47:00 119 mm[Hg] [facility] pressure Diastolic blood 2022-06-10 16:47:00 66 mm[Hg] [facility] pressure Heart rate 2022-06-10 16:47:00 81 /min [facility] Body temperature 2022-06-10 16:47:00 36.61 Leslie [facility] Respiratory rate 2022-06-10 16:47:00 18 /min [facility] Oxygen saturation in 2022-06-10 16:47:00 97 /min [facility] Arterial blood by Pulse oximetry Body height 2022-06-09 16:52:00 175.3 cm [facility] Body weight 2022-06-09 16:52:00 115.35 kg [facility] BMI 2022-06-09 16:52:00 37.55 kg/m2 [facility] Procedures Procedure Date / Time Performing Clinician Source Performed POC GLUCOSE 2022-06-10 16:05:00 Waylon Nicolas-Hsi [place] < 1 HOUR 2022-06-10 15:45:00 Waylon Nicolas Nicolas-Hsi FISTULOGRAPHY, DIALYSIS 2022-06-10 13:54:00 Fidencio [facility] SHUNT, AND DECLOTTING Nicolas-Hsi ESTIMATED GFR 2022-06-10 12:45:00 Waylon Nicolas Nicolas-Hsi POC PANEL 2022-06-10 12:45:00 Waylon Nicolas Nicolas-Hsi BASIC METABOLIC PANEL 2022-06-10 12:36[facility]00 [facility] TIME WITH INR 2022-06-10 12:[facility] PARTIAL THROMBOPLASTIN 2022-06-10 12:36:00 [facility] TIME (PTT[facility] Suleiman Davis ESTIMATED GFR 2022-06-10 12:36:00 Yadira Bradley ECG PRE/POST OP 2022-06-09 17:27:56 Waylon Nicolas Nicolas-Hsi CBC WITH PLATELET AND 2022-06-09 17:16:00 [facility]-Hsi TYPE AND SCREEN 2022-06-09 17:16:00 Waylon Nicolas Nicolas-Hsi HEMOGLOBIN A1C 2022-06-09 17:16:00 Yadira Bradley [place] < 1 HOUR 2022-05-08 23:25:06 Wes Sharma POC GLUCOSE 2022-05-08 23:10:00 Wes Sharma [place] AN ELECTIVE 2022-05-08 20:27:00 Yadira Bradley SUPRAGLOTTIC AIRWAY Suleiman Davis FISTULOGRAPHY, DIALYSIS 2022-05-08 20:15:00 Caremn, [facility] SHUNT, AND DECLOTTING ESTIMATED GFR 2022-05-08 18:26:00 Wes Sharma spital POC PANEL 2022-05-08 18:26:00 Wes Sharma spital BASIC METABOLIC PANEL 2022-05-08 18:18:00 Mirna [facility] Suleiman Davis ESTIMATED GFR 2022-05-08 18:18:00 Yadira Bradley shahnaz Davis PROTHROMBIN TIME WITH INR 2022-05-08 18:14:00 Mirna [facility] Suleiman Davis ECG PRE/POST OP 2022-05-07 18:50:05 Wes Sharma shahnaz XR CHEST 2 VW 2022-05-07 18:16:39 Wes Sharma spital CBC WITH PLATELET AND 2022-05-07 17:28:00 Carmen [facility] DIFFERENTIAL TYPE AND SCREEN 2022-05-07 17:28:00 Wes Sharma spital HEMOGLOBIN A1C 2022-05-07 17:28:00 Yadira Bradley shahnaz Davis HC DEBRID SUBQ TIS 2022-02-05 17:30:[facility] HC DEBRID SUBQ TIS 1ST 2022-01-22 18:00:00 [facility]< HC DEBRID SUB TISS EA 2022-01-22 18:00:00 Carmen [facility] ADDL 20SQCM POC GLUCOSE 2022-01-09 23:10:00 [facility] POC GLUCOSE 2022-01-09 16:41:00 [facility] POC GLUCOSE 2022-01-09 15:00:00 [facility] HEMODIALYSIS 2022-01-09 13:00:58 Lebron Aceves [facility] CBC WITH PLATELET AND 2022-01-09 11:40:00 [facility] DIFFERENTIAL COMPREHENSIVE METABOLIC 2022-01-09 11:40:00 [facility] PANEL ESTIMATED GFR 2022-01-09 11:40:00 [facility] POC GLUCOSE 2022-01-09 00:55:00 [facility] POC GLUCOSE 2022-01-08 22:26:00 [facility] POC GLUCOSE 2022-01-08 18:49:00 [facility] HEMODIALYSIS 2022-01-08 18:32:18 [facility] HEPATITIS B SURFACE 2022-01-08 14:46:00 [facility] ANTIGEN POC GLUCOSE 2022-01-08 13:01:00 [facility] POC GLUCOSE 2022-01-08 10:59:00 [facility] POC GLUCOSE 2022-01-08 09:44:00 [facility] ECG 12-LEAD 2022-01-08 09:15:19 Melony Fisher Ho spital CBC WITH PLATELET AND 2022-01-08 08:15:00 [facility] DIFFERENTIAL Claudia COMPREHENSIVE METABOLIC 2022-01-08 08:15:00 [facility] PANEL Claudia MAGNESIUM LEVEL 2022-01-08 08:15:00 [facility] Claudia PHOSPHORUS LEVEL 2022-01-08 08:15:00 [facility] Claudia B NATRIURETIC PEPTIDE 2022-01-08 08:15:00 [facility] Claudia ESTIMATED GFR 2022-01-08 08:15:00 [facility] POC GLUCOSE 2022-01-08 03:38:00 [facility] [place] < 1 HOUR 2022-01-08 02:42:10 Wes Sharma Ho spital POC GLUCOSE 2022-01-08 02:39:00 [facility] FUNGUS CULTURE 2022-01-08 01:41:00 Carmen, Wes May spital TISSUE CULTURE 2022-01-08 01:41:00 Carmen, Wes [facility] spital AFB CULTURE 2022-01-08 01:41:00 Carmen, Wes [facility] spital FUNGUS SMEAR 2022-01-08 01:41:00 Carmen, Wes [facility] spital AFB STAIN 2022-01-08 01:41:00 Carmen, Wes [facility] spital ANAEROBIC CULTURE 2022-01-08 01:40:00 Carmen, [facility] GRAM STAIN 2022-01-08 01:40:00 Carmen, [facility] TISSUE CULTURE 2022-01-08 01:40:00 Carmen, Wes [facility] spital [place] AN ELECTIVE 2022-01-07 22:03:00 Ashly Villafana [facility] SUPRAGLOTTIC AIRWAY REVISION, ARTERIOVENOUS 2022-01-07 21:54:00 Carmen, [facility] GRAFT, WITH ANGIOGRAPHY COVID-19 QUALITATIVE 2022-01-07 19:27:00 [facility] RT-PCR TYPE AND SCREEN 2022-01-07 19:27:00 Dylon Barney [facility] Claudia XR CHEST 1 VW PORTABLE 2022-01-07 19:06:22 [facility] ECG ED PRELIMINARY 2022-01-07 18:30:34 [facility] INTERPRETATION ECG 12-LEAD 2022-01-07 18:26:06 [facility] BLOOD CULTURE, AEROBIC & 2022-01-07 18:14:00 [facility] ANAEROBIC CBC WITH PLATELET AND 2022-01-07 18:13:00 [facility] DIFFERENTIAL PROTHROMBIN TIME WITH INR 2022-01-07 18:13:00 [facility] PARTIAL THROMBOPLASTIN 2022-01-07 18:13:00 [facility] TIME (PTT) COMPREHENSIVE METABOLIC 2022-01-07 18:13:00 Kaden Whitaker [facility] PANEL CREATINE KINASE, TOTAL 2022-01-07 18:13:00 Kaden Whitaker [facility] ([facility]) B NATRIURETIC PEPTIDE 2022-01-07 18:13:00 Kaden Whitaker [facility] TROPONIN T 2022-01-07 18:13:00 Tony Osborne [facility] Claudia ESTIMATED GFR 2022-01-07 18:13:00 [facility] HEPATITIS B SURFACE 2021-12-11 15:16:00 [facility] ANTIGEN Brenda HEPATITIS B SURFACE AB, 2021-12-11 15:16:00 [facility] QUANTITATIVE Brenda HEPATITIS B SURFACE 2021-12-11 15:16:00 [facility] ANTIBODY Brenda HEMODIALYSIS 2021-12-11 14:20:41 [facility] Brenda POC GLUCOSE 2021-12-11 12:48:00 [facility]GG 2021-12-11 11:10:00 Jeffry Hart [facility] ANTIBODY TITER Dre CBC WITH PLATELET AND 2021-12-11 11:10:00 [facility] DIFFERENTIAL COMPREHENSIVE METABOLIC 2021-12-11 11:10:00 [facility] PANEL MAGNESIUM LEVEL 2021-12-11 11:10:00 [facility] spital PHOSPHORUS LEVEL 2021-12-11 11:10:00 [facility] ospital PROTHROMBIN TIME WITH INR 2021-12-11 11:10:00 [facility] PARTIAL THROMBOPLASTIN 2021-12-11 11:10:00 [facility] TIME (PTT) ZZCOVID-19 SEROLOGY 2021-12-11 11:10:00 Jeffry Hart [facility] PATIENT SURVEILLANCE Dre ESTIMATED GFR 2021-12-11 11:10:00 [facility] POC GLUCOSE 2021-12-11 07:03[facility] 2021-12-11 06:18:00 Laeeq, [facility] POC GLUCOSE 2021-12-11 02:44:00 Laeeq, [facility] POC GLUCOSE 2021-12-11 01:09:00 Laeeq, [facility] [place] < 1 HOUR 2021-12-11 00:10:38 Efrain Pepe spital POC GLUCOSE 2021-12-10 23:00:00 Laeeq, [facility] POC GLUCOSE 2021-12-10 20:45:00 Laeeq, [facility] [place] AN ELECTIVE 2021-12-10 18:33:00 Yadira Bradley spital SUPRAGLOTTIC AIRWAY Suleiman Davis REVISION, ARTERIOVENOUS 2021-12-10 18:23:00 Carmen [facility] GRAFT, WITH ANGIOGRAPHY XR CHEST 1 VW PORTABLE 2021-12-10 14:46:47 [facility] Suleiman Davis CBC WITH PLATELET AND 2021-12-10 09:38:00 Derek [facility] DIFFERENTIAL PROTHROMBIN TIME WITH INR 2021-12-10 09:38:00 Larissa Pepe [facility] COMPREHENSIVE METABOLIC 2021-12-10 09:38[facility]NESIUM LEVEL 2021-12-10 09:38:00 Efrain Pepe spital PHOSPHORUS LEVEL 2021-12-10 09:38:00 [facility] HEMOGLOBIN A1C 2021-12-10 09:38:00 Larissa Pepe spital ESTIMATED GFR 2021-12-10 09:38:00 Larissa Pepe spital ECG 12-LEAD 2021-12-10 04:30:30 Larissa Pepe spital COVID-19 QUALITATIVE 2021-12-10 04:27:00 [facility] Monika CBC WITH PLATELET AND 2021-12-10 04:27[facility] Monika PROTHROMBIN TIME WITH INR 2021-12-10 04:27:00 [facility] 2021-12-10 04:27:00 Zhane Savage [facility] TIME (PTT) Monika TYPE AND SCREEN 2021-12-10 04:27:00 [facility] COMPREHENSIVE METABOLIC 2021-12-10 04:27:00 Zhane Savage [facility] PANEL Monika ESTIMATED GFR 2021-12-10 04:27:00 [facility] BLOOD CULTURE, AEROBIC & 2021-12-10 04:20:00 [facility] ANAEROBIC [facility] ECG ED PRELIMINARY 2021-12-10 04:19:28 [facility] INTERPRETATION [facility] SARS-COV-2 COVID-19 2021-05-23 20:38:05 Doctor Unassigned, [facility] VACCINE BOOSTER,0.25ML,IM [place] [facility] (MODERNA) AUTHORIZATION TO RELEASE 2020-12-10 05:01:00 Doctor Unassigned, [facility] PHI TO [facility] [place] [facility] AUTHORIZATION FOR RELEASE 2019-11-28 05:01:00 Doctor Unassigned, [facility] [place] [facility] POCT GLUCOSE (AUTOMATED) 2019-03-09 21:13:00 Cuong Shelley [facility] NM MYOCARDIUM PERFUSION 2019-03-09 19:56:03 Anay Royal [facility] STRESS AND REST [facility] POCT GLUCOSE (AUTOMATED) 2019-03-09 16:13:00 Cuong Shelley [facility] POCT GLUCOSE (AUTOMATED) 2019-03-09 12:25:00 Cuong Shelley [facility] MAGNESIUM 2019-03-09 09:37:00 Paul Ruby [place] [facility] COMP. METABOLIC PANEL 2019-03-09 09:37:00 Paul Ruby [facility] ([id number]) [facility] CBC WITH DIFFERENTIAL 2019-03-09 09:37:00 Paul Ruby [facility] POCT GLUCOSE (AUTOMATED) 2019-03-09 04:10:00 Cuong Shelley [facility] POCT GLUCOSE (AUTOMATED) 2019-03-08 21:13:00 Cuong Shelley [facility] MAGNESIUM 2019-03-08 16:14:00 Paul Ruby [place] [facility] COMP. METABOLIC PANEL 2019-03-08 16:14:00 Paul Ruby [facility] ([id number]) [facility] CBC WITH DIFFERENTIAL 2019-03-08 16:14:00 Flori stacey [facility] N-TERMINAL PRO-BNP 2019-03-08 16:14:00 Flori [facility] ECHO ROUTINE W/DOPPLER 2019-03-08 16:12:25 Flori stacey [facility] REYES MULTI LEVEL BY 2019-03-08 15:07:27 Anay Royal [facility] VASCULAR LAB [facility] POCT GLUCOSE (AUTOMATED) 2019-03-08 12:11:00 Cuong Shelley [facility] POCT GLUCOSE (AUTOMATED) 2019-03-08 00:56:00 Cuong Shelley [facility] POCT GLUCOSE (AUTOMATED) 2019-03-07 22:52:00 Cuong Shelley [facility] EKG-12 LEAD 2019-03-07 22:10:42 Yadira Ha [facility] XR CHEST 1 VW 2019-03-07 21:57:44 Chapo Galindo [facility] INTUBATION 2019-03-07 21:05:05 Steven Pimentel [facility] FL TIME OR 2019-03-07 21:00:00 Yadira Ha [facility] (NON-REPORTABLE) [facility] PERM CATH PLACEMENT 2019-03-07 19:52:[address] [facility] POCT GLUCOSE (AUTOMATED) 2019-03-07 19:07:00 Cuong Shelley [facility] POCT GLUCOSE(AGE >30DAYS) 2019-03-07 19:02:00 Steven Pimentel [facility] POCT GLUCOSE (AUTOMATED) 2019-03-07 16:19:00 Cuong Shelley [facility] POCT GLUCOSE (AUTOMATED) 2019-03-07 12:27:00 Cuong Shelley [facility] PHOSPHORUS 2019-03-07 09:10:00 Paul Ruby [facility] MAGNESIUM 2019-03-07 09:10:00 Flori stacey [facility] VITAMIN B12, LEVEL 2019-03-07 09:10:00 [facility] COMP. METABOLIC PANEL 2019-03-07 09:10:00 Paul Ruby [facility] ([id number]) [facility] CBC WITH DIFFERENTIAL 2019-03-07 09:10:00 Paul Ruby [facility] VITAMIN D, 25-OH 2019-03-07 09:10:00 Flori [facility] POCT GLUCOSE (AUTOMATED) 2019-03-07 00:52:00 Cuong Shelley [facility] PREPARE PACKED RBC 2019-03-07 00:26:50 Flori [facility] POCT GLUCOSE (AUTOMATED) 2019-03-06 20:26:00 Cuong Shelley [facility] PREPARE PACKED RBC 2019-03-06 14:51:32 Cuong [facility] POCT GLUCOSE (AUTOMATED) 2019-03-06 12:32:00 Cuong Shelley [facility] PHOSPHORUS 2019-03-06 09:33:00 Hunter Cervantes [facility] FERRITIN SERUM 2019-03-06 09:33:00 Flori stacey [facility] THYROID STIMULATING 2019-03-06 09:33:00 Paul Ruby [facility] HORMONE [facility] COMP. METABOLIC PANEL 2019-03-06 09:33:00 Cuong Shelley [facility] ([id number]) [facility] LIPID PANEL (42415)(TOTAL 2019-03-06 09:33:00 Paul Ruby [facility] CHOLESTEROL, Medical Branch TRIGLYCERIDES, HDL) CBC WITH DIFFERENTIAL 2019-03-06 09:33:00 Cuong Shelley [facility] GLYCOSYLATED HEMOGLOBIN 2019-03-06 09:33:00 Paul Ruby [facility] (A1C) [facility] POCT GLUCOSE (AUTOMATED) 2019-03-06 01:33:00 Cuong Shelley [facility] POCT GLUCOSE (AUTOMATED) 2019-03-05 20:42:00 Cuong Shelley [facility] POCT GLUCOSE (AUTOMATED) 2019-03-05 16:46:00 Cuong Shelley [facility] POCT GLUCOSE (AUTOMATED) 2019-03-05 12:44:00 Cuong Shelley [facility] URINALYSIS 2019-03-05 09:08:00 Tobi Albert [facility] CBC WITH DIFFERENTIAL 2019-03-05 05:34:00 [facility] CBC WITH DIFFERENTIAL 2019-03-05 03:40:00 Lurdes Hernadez [facility] PHOSPHORUS 2019-03-05 03:39:00 [facility] BASIC METABOLIC PANEL 2019-03-05 03:39:00 [facility] (NA, K, CL, CO2, GLUCOSE, Medica l Branch BUN, CREATININE, CA) IRON PANEL 2019-03-05 03:39:00 [facility] TRANSFUSE PACKED RBC 2019-03-05 02:34:[address] [facility] HEPATITIS B SURFACE 2019-03-05 00:46:00 Billy Hunter [facility] ANTIBODY [facility] HEPATITIS B SURFACE 2019-03-05 00:46:00 Billy Hunter [facility] ANTIGEN [facility] XR CHEST 1 VW 2019-03-04 21:00:43 Singer [facility] CENTRAL LINE 2019-03-04 20:34:19 Singer [facility] XR CHEST 1 VW 2019-03-04 18:35:10 Tobi Albert [facility] TYPE AND SCREEN 2019-03-04 18:30:00 Tobi Albert [facility] PHOSPHORUS 2019-03-04 17:29:00 Cuong Shelley [facility] COMP. METABOLIC PANEL 2019-03-04 17:29:00 Tobi Albert [facility] ([id number]) [facility] [place] CBC WITH DIFFERENTIAL 2019-03-04 17:29:00 Tobi Albert [facility] GLYCOSYLATED HEMOGLOBIN 2019-03-04 17:29:00 Cuong Shelley [facility] (A1C) [facility] NOTICE OF PRIVACY 2019-03-04 17:13:50 Doctor Unassigned, [facility] PRACTICES [facility] CONSENT/REFUSAL FOR 2019-03-04 17:12:17 Doctor Unassbee, [facility] DIAGNOSIS AND TREATMENT [facility] HOSPITAL ADM - MISC 2019-03-04 05:01:00 Doctor Sindhu [facility] Plan of Care Planned Activity Planned Date Details Comments Source Future Scheduled 2022-09-20 Pneumococcal Vaccine: [facility] Test 15:31:45 Pediatrics (0 to 5 Years) and At-Risk Patients (6 to 64 Years) (1 - PCV) [code = Pneumococcal Vaccine: Pediatrics (0 to 5 Years) and At-Risk Patients (6 to 64 Years) (1 - PCV)] Future Scheduled 2022-09-20 DIABETES: RETINAL EYE [facility] Test 15:31:45 EXAM [code = DIABETES: RETINAL EYE EXAM] Future Scheduled 2022-09-20 DIABETIC FOOT EXAM [facility] Test 15:31:45 [code = DIABETIC FOOT EXAM] Future Scheduled 2022-09-20 Hepatitis C screening [facility] Test 15:31:45 (procedure) [code = 399844056] Future Scheduled 2022-09-20 COVID-19 VACCINE (4 - [facility] Test 15:31:45 Booster for Moderna series) [code = COVID-19 VACCINE (4 - Booster for Moderna series)] Future Scheduled 2022-09-20 [facility]FLUENZA [facility]ACCINE [facility] 15:31:45 [code = INFLUENZA VACCINE] Encounters Start End Encounter Admission Attending Care Care Encounter Source Date/Time Date/Time Type Type Clinicians Facility Department ID 2022-06-10 2022-06-10 Hospital Fidencio, 1.2.840.1 [id number] Methodi 05:38:00 11:19:00 Encounter Waylon 61594.1.1 323 [facility] 3.430.2.7 Hosp gina .3.414601 l .8 2022-06-10 2022-06-10 Surgery Fidencio, 1.2.840.1 [id number] Methodi 08:00:00 10:30:00 Waylon 65517.1.1 321 [facility] 3.430.2.7 Hosp gina .3.537044 l .8 2022-06-10 2022-06-10 Anesthesia Saulo Soria 1.2.840.1 [id number] Methodi 07:54:00 10:08:00 Event Nell Haed 25967.1.[address] 3.430.2.7 Hospit a .3.789078 l .8 2022-06-10 2022-06-10 Outpatient [facility] [id number] 120 [place] 00:00:00 00:00:00 WAYLON [address] 2022-06-09 2022-06-09 Pre-Admiss Fidencio, 1.2.840.1 [id number] [id number] Methodi 11:00:00 12:00:00 ion Waylon 34074.1.[address] [facility] 3.430.2.7 Hosp gina .3.018653 l .8 2022-06-09 2022-06-09 Office Maier, 1.2.840.1 [id number] 1704 Methodi 10:00:00 10:32:44 Visit Marisol 16345.1.[address] [place] 3.430.2.7 Hosp gina .3.501836 l .8 2022-06-09 2022-06-09 Outpatient [facility] [id number] 050 [place] 00:00:00 00:00:[address] 2022-06-09 2022-06-09 Outpatient [facility] [id number] 123 [place] 00:00:00 00:00:00 WAYLON [address] 2022-06-09 2022-06-09 Prep for Andre, 1.2.840.1 [id number] Methodi 00:00:00 00:00:00 Surgery Alicia 75746.1.[address] 3.430.2.7 Hospit a .3.105559 l .8 2022-06-09 2022-06-09 Travel 1.2.840.1 1.2.964.689 6413 [id number] Methodi 00:00:00 00:00:[address] 3.430.2.7 0.2.7.3.698 Ho spita .3.879220 084.8 l .8 2022-06-08 2022-06-08 Telephone Fidencio, 1.2.840.1 [id number] 2099 795410 Methodi 00:00:00 00:00:[address] Nicolas-i 3.430.2.7 Hosp gina .3.223701 l .8 2022-05-08 2022-05-08 Hospital Wes Sharma 1.2.840.1 [id number] 2100 [id number] Methodi 11:24:00 18:16:[address] 3.430.2.7 Hospit a .3.376427 l .8 2022-05-08 2022-05-08 Anesthesia Natalya Albright 1.2.840. 1 [id number] Methodi 14:15:00 17:12:00 Event Dani Wilkse 11367.1.[address] 3.430.2.7 Hospit a .3.133059 l .8 2022-05-08 2022-05-08 Surgery Wes Sharma 1.2.840.1 [id number] 92742 Methodi 13:00:00 15:30:[address] 3.430.2.7 Hospit a .3.486053 l .8 2022-05-08 2022-05-08 Outpatient WES SHARMA [facility] 021 [id number] 7844 [place] 00:00:00 00:00:[address] 2022-05-07 2022-05-07 [facility] Wes Sharma 1.2.840.1 [id number] 2100 [id number] Methodi 12:05:33 23:59:[address] 3.430.2.7 Hospit a .3.408376 l .8 2022-05-07 2022-05-07 Pre-Admiss Wes Sharma 1.2.840.1 [id number] 21 [id number] Methodi 11:30:00 12:30:[address] Testing 3.430.2.7 Hospit a .3.420783 l .8 2022-05-07 2022-05-07 Office Fidencio, 1.2.840.1 [id number] 8208 Methodi 08:45:00 11:02:34 Visit Waylon 45114.1.[address] Nicolas-Hsi 3.430.2.7 Hosp gina .3.318702 l .8 2022-05-07 2022-05-07 Outpatient WES SHARMA [facility] [id number] 0266 [place] 00:00:00 00:00:[address] 2022-05-07 2022-05-07 Outpatient FIDENCIO [facility] [id number] 942 [place] 00:00:00 00:00:00 WAYLON [address] 2022-05-07 2022-05-07 Outpatient WES SHARMA [facility] [id number] 6922 [place] 00:00:00 00:00:[address] 2022-05-07 2022-05-07 Prep for Powell, 1.2.840.1 [id number] Methodi 00:00:00 00:00:00 Surgery Alicia 76314.1.[address] 3.430.2.7 Hospit a .3.955209 l .8 2022-05-07 2022-05-07 Travel 1.2.840.1 1.2.704.563 0923 254845 Methodi 00:00:00 00:00:[address] 3.430.2.7 0.2.7.3.698 Ho spita .3.506494 084.8 l .8 2022-03-03 2022-04-20 Office Wes Sharma 1.2.840.1 [id number] 09557 Methodi 09:15:00 00:06:[address] 3.430.2.7 Hospit a .3.311453 l .8 2022-03-26 2022-03-26 Office Darrion, 1.2.840.1 [id number] 0741 Methodi 13:00:00 13:41:28 Visit Marisol 53033.1.[address] [place] 3.430.2.7 Hosp gina .3.190283 l .8 2022-03-26 2022-03-26 Outpatient [facility] [id number] 755 [place] 00:00:00 00:00:[address] 2022-03-26 2022-03-26 Travel 1.2.840.1 1.2.363.887 2098 [id number] Methodi 00:00:00 00:00:[address] 3.430.2.7 0.2.7.3.698 Ho spita .3.497942 084.8 l .8 2022-03-20 2022-03-20 Telephone Darrion, 1.2.840.1 [id number] 2099 806154 Methodi 00:00:00 00:00:[address] [place] 3.430.2.7 Hosp gina .3.648933 l .8 2022-03-18 2022-03-18 Telephone Chay, 1.2.840.1 [id number] 21 [id number] Methodi 00:00:00 00:00:[address] 3.430.2.7 Hospit a .3.897522 l .8 2022-03-17 2022-03-17 Telephone Wes Sharma 1.2.840.1 [id number] 621 [id number] Methodi 00:00:00 00:00:[address] 3.430.2.7 Hospit a .3.402921 l .8 2022-03-03 2022-03-03 Outpatient EWS SHARMA [facility] [id number] 0090 [place] 00:00:00 00:00:[address] 2022-02-19 2022-02-19 Office Wes Sharma 1.2.840.1 [id number] 32428 Methodi 13:00:00 13:16:[address] 3.430.2.7 Hospit a .3.946888 l .8 2022-02-19 2022-02-19 Outpatient WES SHARMA [facility] [id number] 8123 [place] 00:00:00 00:00:[address] 2022-02-19 2022-02-19 Travel 1.2.840.1 1.2.747.277 6476 018823 Methodi 00:00:00 00:00:[address] 3.430.2.7 0.2.7.3.698 Ho spita .3.688082 084.8 l .8 2022-02-05 2022-02-05 Office Wes Sharma 1.2.840.1 [id number] 90097 15612 Methodi 12:30:00 13:03:[address] 3.430.2.7 Hospit a .3.541952 l .8 2022-02-05 2022-02-05 Outpatient WES SHARMA [facility] [id number] 4401 [place] 00:00:00 00:00:[address] 2022-02-05 2022-02-05 Travel 1.2.840.1 1.2.766.386 2641 069722 Methodi 00:00:00 00:00:[address] 3.430.2.7 0.2.7.3.698 Ho spita .3.269474 084.8 l .8 2022-01-22 2022-01-22 Office Wes Sharma 1.2.840.1 [id number] 80444 Methodi 13:00:00 14:19:[address] 3.430.2.7 Hospit a .3.893404 l .8 2022-01-22 2022-01-22 Outpatient WES SHARMA [facility] [id number] 9842 [place] 00:00:00 00:00:[address] 2022-01-22 2022-01-22 Travel 1.2.840.1 1.2.292.658 3017 792757 Methodi 00:00:00 00:00:[address] 3.430.2.7 0.2.7.3.698 spita .3.608423 084.8 l .8 2022-01-13 2022-01-13 Abstract Kim Jerez 1.2.840.1 [id number] 2 [id number] Methodi 00:00:00 00:00:[address] 3.430.2.7 Hospit a .3.731460 l .8 2022-01-07 2022-01-09 [facility] 1.2.840.1 1041 [id number] Methodi 13:00:00 19:42:00 Encounter Manuel Salguerokitty 38175.1.[address] 3.430.2.7 Hospit a .3.596310 l .8 2022-01-09 2022-01-09 Telephone Slava 1Jarrod2.840.1 [id number] Methodi 00:00:00 00:00:[address] 3.430.2.7 Hospit a .3.170836 l .8 2022-01-07 2022-01-09 Inpatient NOEMY [facility] 064 [id number] 7313 [place] 00:00:00 00:00:00 [facility] [address] 2022-01-07 2022-01-07 Anesthesia Saulo Soria 1.2.840.1 [id number] Methodi 16:54:00 21:45:00 Event Nimisha Swanson 49913.1.[address] 3.430.2.7 Hospit a .3.486808 l .8 2022-01-07 2022-01-07 Surgery Wes Sharma 1.2.840.1 [id number] 60226 63323 Methodi 16:17:00 19:17:[address] 3.430.2.7 Hospit a .3.718314 l .8 2022-01-07 2022-01-07 Office Darrion, 1.2.840.1 [id number] [id number] 1871 Methodi 10:45:00 12:53:29 Visit Marisol 72057.1.[address] [place] 3.430.2.7 Hosp gina .3.843814 l .8 2022-01-07 2022-01-07 Outpatient [facility] [id number] 568 [place] 00:00:00 00:00:[address] 2022-01-07 2022-01-07 Telephone Maier, 1.2.840.1 [id number] 2099 737440 Methodi 00:00:00 00:00:[address] [place] 3.430.2.7 Hosp gina .3.645868 l .8 2022-01-07 2022-01-07 Travel 1.2.840.1 1.2.455.074 4939 505278 Methodi 00:00:00 00:00:[address] 3.430.2.7 0.2.7.3.698 Ho spita .3.860298 084.8 l .8 2022-01-07 2022-01-07 Telephone Nicolas, 1.2.840.1 [id number] 2099 725329 Methodi 00:00:00 00:00:[address] Nicolas-Hsi 3.430.2.7 Hosp gina .3.825763 l .8 2021-12-25 2021-12-25 Office Darrion, 1.2.840.1 [id number] 830670 6233 Methodi 13:15:00 13:36:15 Visit Marisol 55846.1.[address] [place] 3.430.2.7 Hosp gina .3.236604 l .8 2021-12-25 2021-12-25 Outpatient [facility] [id number] 146 [place] 00:00:00 00:00:[address] 2021-12-25 2021-12-25 Travel 1.2.840.1 1.2.215.617 2390 454363 Methodi 00:00:00 00:00:[address] 3.430.2.7 0.2.7.3.698 Ho spita .3.208627 084.8 l .8 2021-12-18 2021-12-18 Telephone Slava, 1.2.840.1 [id number] Methodi 00:00:00 00:00:[address] 3.430.2.7 Hospit a .3.021633 l .8 2021-12-12 2021-12-12 Patient Dago, 1.2.840.1 [id number] 685 [id number] Methodi 00:00:00 00:00:00 Outreach Kirti 84146.1.[address] 3.430.2.7 Hospit a .3.861767 l .8 2021-12-12 2021-12-12 Telephone CarmenWes 1.2.840.1 [id number] 963 [id number] Methodi 00:00:00 00:00:[address] 3.430.2.7 Hospit a .3.131969 l .8 2021-12-09 2021-12-11 Emergency Zhane Savage 1.2.84 0.1 [id number] Methodi 23:05:00 17:08:00 Larissa Pepe 92825.1.[address] Laeeq, Chapin Wilfredo 3.430.2.7 Hospita .3.196020 l .8 2021-12-11 2021-12-11 Travel 1.2.840.1 1.2.374.639 2952 909370 Methodi 00:00:00 00:00:[address] 3.430.2.7 0.2.7.3.698 Ho spita .3.635033 084.8 l .8 2021-12-09 2021-12-11 Outpatient [facility] 166 [id number] 710 [place] 00:00:00 00:00:00 CHAPIN [address] 2021-12-10 2021-12-10 Surgery Wes Sharma 1.2.840.1 [id number] 69811 64037 Methodi 13:40:00 16:25:[address] 3.430.2.7 Hospit a .3.748117 l .8 2021-12-10 2021-12-10 Anesthesia Suleiman Bradley 1.2.840.1 [id number] Methodi 13:23:00 15:47:00 Event Sivan Valero 13550.1.[address] 3.430.2.7 Hospit a .3.960908 l .8 2021-12-09 2021-12-09 Office Darrion 1.2.840.1 [id number] 3278 Methodi 15:15:00 16:53:15 Visit Marisol 48864.1.[address] [place] 3.430.2.7 Hosp gina .3.320215 l .8 2021-12-09 2021-12-09 Emergency [place] [address] [id number] 03 [place] 00:00:00 00:00:[address] 2021-12-09 2021-12-09 Telephone Darrion 1.2.840.1 [id number] 2100 379901 Methodi 00:00:00 00:00:[address] [place] 3.430.2.7 Hosp gina .3.113257 l .8 2021-12-09 2021-12-09 Travel 1.2.840.1 1.2.928.954 0822 139695 Methodi 00:00:00 00:00:[address] 3.430.2.7 0.2.7.3.698 Ho spita .3.737913 084.8 l .8 2021-12-09 2021-12-09 Outpatient [facility] [id number] 673 [place] 00:00:00 00:00:[address] 2021-10-23 2021-10-23 Office Nicolas, 1.2.840.1 [id number] 722576 1664 Methodi 09:00:00 12:05:56 Visit Waylon 50977.1.[address] Nicolas-Hs 3.430.2.7 Hosp gina .3.837237 l .8 2021-10-23 2021-10-23 Travel 1.2.840.1 1.2.037.147 5551 886919 Methodi 00:00:00 00:00:[address] 3.430.2.7 0.2.7.3.698 Ho spita .3.697354 084.8 l .8 2021-10-23 2021-10-23 Outpatient FIDENCIO [facility] [id number] 768 [place] 00:00:00 00:00:00 WAYLON [address] 2021-10-13 2021-10-13 Telephone Andre, 1.2.840.1 [id number] Methodi 00:00:00 00:00:[address] 3.430.2.7 Hospit a .3.982231 l .8 2021-05-23 2021-05-[address] [id number] Univers 14:30:00 14:02:16 JERALD morgan [facility] 2021-05-23 2021-05-23 Imm/Inj Nurse, Adc Pob Immunization [facility] 1.2.840.114 [id number] Univers 14:02:06 14:02:16 Visit Jerald Bethea 350.1.13 .10 ity of [place] [phone] Me dical NAL [address] BUILDING 2021-04-23 2021-04-23 [facility] [id number] 663 Univers 12:30:00 12:30:00 YESSICA morgan [facility] 2020-12-24 2020-12-24 [facility] [id number] 748 Univers 14:15:00 14:15:00 JOANNA morgan [facility] 2020-12-24 2020-12-24 [facility] [id number] Univers 11:00:00 11:00:00 NAS morgan o [facility] 2020-12-18 2020-12-18 [facility] [id number] 925 Univers 15:40:00 15:40:00 ANAY morgan o [facility] 2020 2020 Telephone [facility] 1.2.028.203 [id number] 6007 Univers 00:00:00 00:00:00 Yessica Sree [facility] 350.1.13.10 i ty of John 4.2.7.2.686 Rk as Professio [phone] Nv dical nal [address] Building One 2020-12-10 2020-12-10 Nurse Renal, Transplant Class [facility] 1. 2.840.114 [id number] Univers 13:54:24 14:39:24 Visit Nas Nunez MULTISPEC 350.1.13 .10 ity [place] [phone] Kimber Lui [address] [facility] 2020-12-10 2020-12-[address] [facility] [id number] Univers 14:00:00 14:00:00 NAS morgan o f [facility] 2020-12-10 2020-12-10 Orders Doctor WEBSTER 1.2.840.114 [id number] Univers 00:00:00 00:00:00 Only Unassigned, BEBO 350.1.13.10 [facility] 4.2.7.2.686 Rk as [phone] [place] [address] Branch 2020-12-04 2020-12-04 Urgent Provider, [facility] 1.2.840.114 [id number] Univers 13:26:55 15:18:58 Care Yessica Meng [facility] 350.1.13.10 ity of [place] 4.2.7.2.686 Rk as Professio [phone] Nv dic[address] Office [facility] 2020-12-04 2020-12-[address] [facility] [id number] [id number] Univers 13:20:00 13:20:[address] [facility] 2020-11-21 2020-11-21 Telephone [facility] 1.2.058.155 0924 [id number] Univers 00:00:00 00:00:00 Yessica Balbuena [facility] 350.1.13.10 i ty of [place] 4.2.7.2.686 Rk as Professio [phone] Nv dic[address] Office [facility] One 2020-11-08 2020-11-08 Telephone Erik [facility] 1.2.840.114 [id number] Univers 00:00:00 00:00:00 Viv peterson MULTISPEC 350.1.13.10 ity of [place] [phone] [facility] [address] [facility] 2020-10-31 2020-10-31 Telephone Mayra [facility] 1.2.840.114 [id number] [id number] Univers 00:00:00 00:00:00 Nas Balbuena MULTISPEC 350.1.13.10 ity [place] [phone] [facility] [address] [facility] 2020-10-25 2020-10-25 [facility] 1.2.840.114 [id number] 13:18:00 15:16:22 Visit Yessica [facility] 350.1.13.10 John 4.2.7.2.686 Professio [phone] nal 044 Office [facility] 2020-10-25 2020-10-25 Office [facility] 1.2.840.114 [id number] Univers 13:18:00 15:16:22 Visit Yessica [facility] 350.1.13.10 i ty of [place] 4.2.7.2.686 Rk as Professio [phone] [facility] d[facility] [address] Office [facility] 2020-10-25 2020-10-25 [facility] [id number] Univers 13:30:00 13:30:00 [facility] 2020-10-16 2020-10-16 [facility] [id number] Univers 12:30:00 12:30:00 VERNON [facility] 2020-09-16 2020-09-16 [facility] [id number] Univers 15:20:00 15:20:00 TEJAS [facility] 2020-08-28 2020-08-28 Telephone [facility] 1.2.840.114 [id number] Univers 00:00:00 00:00:00 Nas [place] MULTISPEC 350.1.13.10 ity of IALTY 4.2.7.2.686 [facility] Tylera s [place] [phone] [address] [facility] 2020-08-20 2020-08-20 Telephone CalixtoYocasta [facility] 1.2.840.114 [id number] Univers 00:00:00 00:00:00 Viv peterson MULTISPEC 350.1.13.10 ity of [place] 4.2.7.2.686 [facility] [place] [phone] [address] [facility] 2020-08-19 2020-08-19 Outpatient [facility] [id number] Univers 15:30:00 15:30:00 TEJAS [facility] 2020-07-17 2020-07-17 [facility] [id number] Univers 13:49:00 23:59:00 Encounter Nas Sree BEBO 350.1.13.10 ity of [facility] 4.2.7.2.686 Rk as [phone] [facility] [address] 2020-07-17 2020-07-17 Outpatient R [facility]CO [id number] Univers 00:00:00 00:00:00 NAS ity o f [facility] 2020-07-17 2020-07-17 Letter [facility] 1.2.840.114 [id number] Univers 00:00:00 00:00:00 (Out) Nas [place] MULTISPEC 350.1.13.10 [facility] 4.2.7.2.686 [facility] [phone] [address] [facility] 2020-06-28 2020-06-[address] [facility] 1.2.840.114 [id number] Univers 00:00:00 00:00:00 Viv peterson MULTISPEC 350.1.13.10 ity of [place] 4.2.7.2.686 [facility] [phone] [address] [facility] 2019-11-29 2019-11-29 Outpatient EUGENIO [facility]SON [facility] [id number] [place] 00:00:00 00:00:[address] 2019-11-28 2019-11-28 Orders Doctor ELEANOR 1.2.840.114 [id number] Univers 00:00:00 00:00:00 Only Unassigned, [facility] 350.1.13.10 ity of [facility] 4.2.7.2.686 Rk as [phone] [facility] [address] 2019-11-21 2019-11-[address] [facility] [id number] Univers 13:00:00 13:00:[address] [facility] 2019-10-10 2019-10-10 Outpatient [facility] [facility] [id number] 6[address] [place] 00:00:00 00:00:[address] 2019-09-05 2019-09-05 Outpatient [facility] [id number] 224 [place] 00:00:00 00:00:[address] 2019-07-18 2019-07-18 Outpatient [facility] [id number] 231 [place] 00:00:00 00:00:00 WAYLON Segal [facility] 2019-03-04 2019-03-09 Hospital Tobi Albert [facility] 1.2.840.1 [id number] [facility] 12:12:36 17:55:00 Encounter Cuong Shelley 350.1.13.10 it[place] 4.2.7.2.686 [facility] [id number] Medi dori [address] 2019-03-07 2019-03-07 [facility] [id number] [facility] 15:07:00 16:37:00 Leesa Linton John 350.1.13.10 ity [place] 4.2.7.2.686 [facility] Surgical [id number] [facility] 020 Branch Results Test Description Test Time Test Comments Results Result Comments Source ECG Pre/Post Op 2022-06-12 18:10:32 Test Item Value Reference Range Interpretation Comme nts Ventricular rate (test code = 253) 78 Atrial rate (test code = 255) 78 NV interval (test code = 266) 158 QRSD interval (test code = 260) 80 QT interval (test code = 264) 400 QTC interval (test code = 265) 456 P axis 1 (test code = 267) 23 QRS axis 1 (test code = 268) -6 T wave axis (test code = 270) 63 EKG impression (test code = 273) Normal sinus rhythm-Normal ECG-In automated comparison with ECG of 07-MAY-2022 12:50,-No significant change was found- [facility] [id number] 16:07:00 Test Item Value Reference Range Interpretation Comments POC glucose (test code = 176 mg/dL 65-99 H Ope rator Name: [id number]) Gurdeep PenaKarissa evice ID: [id number] able: RN Notified Lab Interpretation (test Abnormal code = 02068-1) [facility] [id number] 12:46:01 Test Item Value Reference Range Interpretation Comments POC sodium (test code = 137 mmol/L 697-977 8011-0) POC potassium (test 4.7 mmol/L 3.5-5.0 code = 6298-4) POC glucose (test code 229 mg/dL 65-99 H = 2339-0) POC creatinine (test 12.2 mg/dl 0.7-1.2 H Operato r Name: code = 39005-8) Jorge Zaragoza ID : [id number] POC hemoglobin (test 12.6 g/dL 14.0-18.0 L code = 718-7) POC hematocrit (test 37 % 41-51 L code = 4544-3) Lab Interpretation Abnormal (test code = 50151-6) [facility] [id number] 12:46:00 Test Item Value Reference Range Interpretation Comments Estimated GFR (test 5 mL/min/1.73 m2 A Caterg ory Units code = 66254-0) Interpretati onG1 >=90 Normal or highG 2 60-89 Mildly decrease dG3a 45-59 Mildly to moderately decr nneyfP3s 30-44 Moderatel y to severely decrea sedG4 15-29 Severely decreasedG5 <15 Kidney failureThe eGFR was calculated usdaniel g the Chronic Kidney Disease Epidemiology Collaboration ( CKD-EPI) equation. Interpretation is based on recommendati ons of the National [facility] [employer]-Kidn ey Disease Outcome s Quality Initiat bia (NKF-KDOQI) pub [facility] in 2013. Lab Interpretation Abnormal (test code = 67905-4) [facility]ville[facility] [id number] 12:13:00 Test Item Value Reference Range Interpretation Comments AFB culture No growth Specimen isolate (test after 6 weeks InformationSp ecimen code = 543-9) of Source: Tissue Specimen incubation. Site: Arm: left arm fistula [facility]villeFungus [id number] 12:01:00 Test Item Value Reference Range Interpretation Comments Fungus culture No growth Specimen isolate (test after 4 weeks InformationSp ecimen code = 580-1) Source: Tissue Specimen Site: Arm: left arm fistula [facility]villeNocardia [id number] 14:07:00 Test Item Value Reference Range Interpretation Comments Nocardia No Nocardia Specimen culture isolate isolated after Informatio nSpecimen (test code = 7 days. Source: TissueS pecimen 1808) Site: Arm: left arm fistula [facility] [id number] 14:10:00 Test Item Value Reference Range Interpretation Comments Anaerobic No anaerobic Specimen culture isolate organisms InformationS pecimen (test code = isolated. Source: TissueS pecimen 10756-2) Site: Arm: left arm fistula [facility] [id number] 19:18:00 Test Item Value Reference Range Interpretation Comments Fungus smear No fungi Specimen (test code = observed. InformationSpec imen Source: 1443) TissueSpecimen Site: Arm: left arm fistul a [facility] [id number] 14:42:00 Test Item Value Reference Range Interpretation Comments AFB stain No acid fast Specimen (test code = bacilli (AFB) InformationSpe cimen 676-7) seen. Source: TissueS pecimen Site: Arm: left arm fistula [facility] 12 [id number] 02:21:00 Test Item Value Reference Range Interpretation Comments Ventricular rate (test 69 code = 253) Atrial rate (test code 69 = 255) NV interval (test code 170 = 266) QRSD interval (test 88 code = 260) QT interval (test code 420 = 264) QTC interval (test code 450 = 265) P axis 1 (test code = 58 267) QRS axis 1 (test code = -8 268) T wave axis (test code 60 = 270) EKG impression (test Normal sinus code = 273) rhythm-Normal ECG-In automated comparison with ECG of 07-JAN-2022 13:26,-No significant change was found- [facility] [id number] 18:36:00 Test Item Value Reference Range Interpretation Comments Gram stain No WBC's or Specimen isolate (test organisms seen. Information Specimen code = 1469) Source: TissueS pecimen Site: Arm: left arm fistula [facility] MprukdoxAQKU-LlU-1 (COVID-19) RNA [Presence] in Respiratory specimen by VALERIA with probe [id number] 15:40:14 Test Item Value Reference Range Interpretation Comments SARS-CoV-2 (COVID-19) RNA Not detected [Presence] in Respiratory specimen by VALERIA with probe detection (test code = 93180-2) Whether patient is employed in a Unknown healthcare setting (test code = 68391-3) Whether the patient has symptoms Unknown related to condition of interest (test code = 98502-2) Whether the patient was Unknown hospitalized for condition of interest (test code = 30551-6) Whether the patient was admitted Unknown to intensive care unit (ICU) for condition of interest (test code = 74824-7) Whether patient resides in a Unknown congregate care setting (test code = 71179-2) status (test code = Unknown 91319-9) Date and time of symptom onset Unknown (test code = 54917-9) [facility] RNA [Presence] in Respiratory specimen by VALERIA with probe [id number] 05:37:02 Test Item Value Reference Range Interpretation Comments SARS-CoV-2 (COVID-19) RNA Not detected [Presence] in Respiratory specimen by VALERIA with probe detection (test code = 65014-2) Whether patient is employed in a Unknown healthcare setting (test code = 36804-6) Whether the patient has symptoms Unknown related to condition of interest (test code = 09842-2) Whether the patient was Unknown hospitalized for condition of interest (test code = 44266-2) Whether the patient was admitted Unknown to intensive care unit (ICU) for condition of interest (test code = 52779-6) Whether patient resides in a Unknown congregate care setting (test code = 90299-4) status (test code = Unknown 54771-7) Date and time of symptom onset Unknown (test code = 45230-6) [facility] MYOCARDIUM PERFUSION STRESS AND REST 2019-03-09 22:15:28Impression: Normal myocardial perfusion scan with preserved ejection fraction andnormal wall thickening.I was present for the stress procedure.* * * * * * * * ORIGINAL REPORT * * * * * * * *Pharmacological stress myocardial perfusion imaging report Type: Technetium 99 labeled Myoview rest/stress single isotope SPECTimaging with Ragadenoson pharmacological stress and gated SPECT imaging. Indication: cardiac arrest Clinical history: ESRD on HD, DM, HTN, obesity, family history of prematureCAD Procedure: Pharmacological stress test was performed with a bolus dose of 0.4 mg ofRagadenoson. Gated myocardial perfusion imaging was performed at restfollowing the injection of 16.3 millicuries of technetium labeled Myoviewand post stress following the injection of 42.8 millicuries of technetiumlabeled tetrofosmin. Findings: The overall quality of the study was good except for motion artifact instress images . Stress EKG revealed no inducible ischemia, reported separately. SPECT images demonstrate homogeneous tracer distribution throughout themyocardium. Gated SPECT images demonstrate normal wall motion and myocardialthickening. Stress Values:?EDV = 122 mL; ESV = 51 mL; EF = 58%.Rest Values:?EDV = 135 mL;ESV = 71 mL; EF = 47%. [facility], Radiant Results Inft User - 03/09/2019 5:15 PM CDT* * * * * * * * ORIGINAL REPORT * * * * * * * *Pharmacological stress myocardial perfusion imaging reportType: Technetium 99 labeled Myoview rest/stress single isotope SPECTimaging with Ragadenoson pharmacological stress and gated SPECT imaging.Indication: cardiac arrestClinical history: ESRD on HD, DM, HTN, obesity, family history of prematureCADProcedure:Pharmacological stress test was performed with a bolus dose of 0.4mg ofRagadenoson. Gated myocardial perfusion imaging was performed at restfollowing the injection of16.3 millicuries of technetium labeled Myoviewand post stress following the injection of 42.8 millicuries of technetiumlabeled tetrofosmin.Findings:The overall quality of the study was good except for motion artifact instress images.Stress EKG revealed no inducible ischemia, reported separately. SPECTimages demonstrate homogeneous tracer distribution throughout themyocardium.Gated SPECT images demonstrate normal wall motion and myocardialthickening.Stress Values: EDV = 122 mL; ESV = 51 mL; EF = 58%.Rest Values: EDV = 135 mL; ESV = 71 mL; EF = 47%.IMPRESSIONImpression: Normal myocardial perfusion scan with preserved ejection fraction andnormal wall thickening.I was present for the stress procedure.[facility] GLUCOSE (AUTOMATED)2019-03-09 21:16:00 Test Item Value Reference Range Interpretation Comments POCT GLU (test code = 6346655373) 134 mg/dL 70-110 H Lab Interpretation (test code = Abnormal 03626-3) [facility] GLUCOSE (AUTOMATED)2019-03-09 16:17:00 Test Item Value Reference Range Interpretation Comments POCT GLU (test code = 8767589786) 90 mg/dL 70-110 Lab Interpretation (test code = Normal 28006-9) [facility] Tyler[facility], [id number] 14:39:00 Test Item Value Reference Range Interpretation Comments VIT D 25OH (test code 21 ng/mL 25-80 L = 5363067338) 25-Hydroxy D3 (test 16.9 ng/mL code = 9671696512) 25-Hydroxy D2 (test 4.3 ng/mL code = 8881347833) MITCH (test code = MITCH) Test developed and characteristics determined by [facility] Laboratory Services. Lab Interpretation Abnormal (test code = 32411-3) [facility] GLUCOSE (AUTOMATED)2019-03-09 12:28:00 Test Item Value Reference Range Interpretation Comments POCT GLU (test code = 7726419940) 86 mg/dL 70-110 Lab Interpretation (test code = Normal 89610-7) [facility]MAG[facility]IUM2019-09-19 12:06:00 Test Item Value Reference Range Interpretation Comments MAGNESIUM (test code = 2381448331) 1.6 mg/dL 1.7-2.4 L Lab Interpretation (test code = Abnormal 49729-2) [facility] TylerCOMP. METABOLIC PANEL (67354)2019-03-09 12:05:00 Test Item Value Reference Range Interpretation Comments NA (test code = 142 mmol/L 135-145 8145974468) K (test code = 3.2 mmol/L 3.5-5 L 1092395886) CL (test code = 104 mmol/L 98-108 4378048768) CO2 TOTAL (test code = 28 mmol/L 23-31 1878788373) AGAP (test code = 2-16 6855287113) BUN (test code = 33 mg/dL 7-23 H 8162278659) GLUCOSE (test code = 112 mg/dL 70-110 H 6037637959) CREATININE (test code = 5.68 mg/dL 0.6-1.25 H 0706460045) TOTAL BILI (test code = 0.2 mg/dL 0.1-1.3 5605150624) CALCIUM (test code = 6.7 mg/dL 8.6-10.6 L 6974680437) T PROTEIN (test code = 6.7 g/dL 6.3-8.2 9686673086) ALBUMIN (test code = 2.9 g/dL 3.5-5 L 5899220188) ALK PHOS (test code = 83 U/L 34-122 2403052448) ALT(SGPT) (test code = 11 U/L 9-51 8901197024) AST(SGOT) (test code = 19 U/L 13-40 4721401943) eGFR Calculation mL/min/1.73m2 (Non-) (test code = 8093039363) eGFR Calculation mL/min/1.73m2 () (test code = 9870970525) MITCH (test code = MITCH) Association of Glomerular Filtration Rate (GFR) and Staging of Kidney Disease*+ + + +| GFR (mL/min/1.73 m2)?| With Kidney Damage?|?Without Kidney Damage+ --------+ --------+ +|?>90?|?S malue one?|? Normal?+ ---------+ ---------+ +|?60-89? |?Stage two?|? Decreased GFR? + --+ --+ ------+|?30-59?|?Stage three?|? Stage three? + --+ --+ ------+|?15-29?|?Stage four? |? Stage four?+ -------+ -------+ +|?<15 (or dialysis)?|?Stage five? |? Stage five?+ -------+ -------+ +*Each stage assumes the associated GFR level has been in effect for at least three months.?Stages 1 to 5, with or without kidney disease, indicate chronic kidney disease.Notes: Determination of stages one and two (with eGFR >59mL/min/1.73 m2) requires estimation of kidney damage for at least three months as defined by structural or functional abnormalities of the kidney, manifested by either:Pathological abnormalities or Markers of kidney damage (including abnormalities in the composition of the blood or urine or abnormalities in imaging tests). Lab Interpretation Abnormal (test code = 37982-9) [facility] WITH [id number] 11:55:00 Test Item Value Reference Range Interpretation Comments WBC (test code = See_Comment H [Automated 6690-2) message] The sy stem which generated this result transmitted reference range : 4.20 - 10.70 10*3/?L. The reference range was not used to interpret this result as normal/abnormal . RBC (test code = See_Comment L [Automated 789-8) message] The sy stem which generated this result transmitted reference range : 4.26 - 5.52 10*6/?L. The reference range was not used to interpret this result as normal/abnormal . HGB (test code = 7.9 g/dL 12.2-16.4 L 718-7) HCT (test code = 23.6 % 38.4-49.3 L 4544-3) MCV (test code = 87.1 fL 81.7-95.6 787-2) MCH (test code = 29.2 pg 26.1-32.7 785-6) MCHC (test code = 33.5 g/dL 31.2-35 786-4) RDW-SD (test code = 56.9 fL 38.5-51.6 H 13860-1) RDW-CV (test code = 18.0 % 12.1-15.4 H 788-0) PLT (test code = See_Comment [Automated 777-3) message] The sy stem which generated this result transmitted reference range : 150 - 328 10*3/ ?L. The reference r johnna was not used to interpret this result as normal/abnormal . MPV (test code = 10.1 fL 9.8-13 67795-0) NRBC/100 WBC (test See_Comment [Automat ed code = 1982756878) message] The system which generated this result transmitted reference range : 0.0 - 10.0 /100 WBCs. The refer ence range was not u sed to interpret th is result as normal/abnormal . NRBC x10^3 (test code <0.01 See_Comment [Auto mated = 1326254467) message] The s ystem which generated this result transmitted reference range : 10*3/?L. The reference range was not used to interpret this result as normal/abnormal . GRAN MAT (NEUT) % 72.6 % (test code = 770-8) IMM GRAN % (test code 0.50 % = 9379200637) LYMPH % (test code = 12.5 % 736-9) MONO % (test code = 9.6 % 5905-5) EOS % (test code = 4.5 % 713-8) BASO % (test code = 0.3 % 706-2) GRAN MAT x10^3(ANC) 8.68 10*3/uL 1.99-6.95 H (test code = 7310341677) IMM GRAN x10^3 (test 0.06 10*3/uL 0-0.06 code = 1856588680) LYMPH x10^3 (test code 1.50 10*3/uL 1.09-3.23 = 731-0) MONO x10^3 (test code 1.15 10*3/uL 0.36-1.02 H = 742-7) EOS x10^3 (test code = 0.54 10*3/uL 0.06-0.53 H 711-2) BASO x10^3 (test code 0.03 10*3/uL 0.01-0.09 = 704-7) Lab Interpretation Abnormal (test code = 80261-0) [facility] GLUCOSE (AUTOMATED)2019-03-09 11:29:00 Test Item Value Reference Range Interpretation Comments POCT GLU (test code = 8410255934) 102 mg/dL 70-110 Lab Interpretation (test code = Normal 70716-4) [facility] GLUCOSE (AUTOMATED)2019-03-09 04:33:00 Test Item Value Reference Range Interpretation Comments POCT GLU (test code = 4063852791) 103 mg/dL 70-110 Lab Interpretation (test code = Normal 17462-7) [facility] TylerN-TERMINAL [id number] 21:47:00 Test Item Value Reference Range Interpretation Comments NT-proBNP (test code 74549 pg/mL See_Comment H [Autom ated = 1949132014) message] The system which generated this result transmitted reference range : <=125. The reference range was not used to interpret this result as normal/abnormal . MITCH (test code = MITCH) Biotin has been reported to cause a negative bias, interpret results relative to patient's use of biotin. Lab Interpretation Abnormal (test code = 31255-2) [facility]2019-03-08 21:30:00 Test Item Value Reference Range Interpretation Comments POCT GLU (test code = 9450762788) 145 mg/dL 70-110 H Lab Interpretation (test code = Abnormal 09309-7) [facility]. METABOLIC PANEL (05812)2019-03-08 17:22:00 Test Item Value Reference Range Interpretation Comments NA (test code = 140 mmol/L 135-145 6448498996) K (test code = 3.5 mmol/L 3.5-5 6708214537) CL (test code = 107 mmol/L 98-108 2757982681) CO2 TOTAL (test code = 23 mmol/L 23-31 7703859705) AGAP (test code = 2-16 5487167906) BUN (test code = 58 mg/dL 7-23 H 9722266926) GLUCOSE (test code = 88 mg/dL 70-110 3390383291) CREATININE (test code = 8.56 mg/dL 0.6-1.25 H 7435785501) TOTAL BILI (test code = 0.2 mg/dL 0.1-1.2 8173981317) CALCIUM (test code = 5.7 mg/dL 8.6-10.6 LL 5803671416) T PROTEIN (test code = 6.6 g/dL 6.3-8.2 4736259150) ALBUMIN (test code = 2.9 g/dL 3.5-5 L 9818128935) ALK PHOS (test code = 75 U/L 34-122 5742787699) ALT(SGPT) (test code = 15 U/L 9-51 0714892176) AST(SGOT) (test code = 19 U/L 13-40 2005988953) eGFR Calculation mL/min/1.73m2 (Non-) (test code = 5132499619) eGFR Calculation mL/min/1.73m2 () (test code = 8122361608) MITCH (test code = MITCH) Association of Glomerular Filtration Rate (GFR) and Staging of Kidney Disease*+ + + +| GFR (mL/min/1.73 m2)?| With Kidney Damage?|?Without Kidney Damage+ --------+ --------+ +|?>90?|?S tage one?|? Normal?+ ---------+ ---------+ +|?60-89? |?Stage two?|? Decreased GFR? + --+ --+ ------+|?30-59?|?Stage three?|? Stage three? + --+ --+ ------+|?15-29?|?Stage four? |? Stage four?+ -------+ -------+ +|?<15 (or dialysis)?|?Stage five? |? Stage five?+ -------+ -------+ +*Each stage assumes the associated GFR level has been in effect for at least three months.?Stages 1 to 5, with or without kidney disease, indicate chronic kidney disease.Notes: Determination of stages one and two (with eGFR >59mL/min/1.73 m2) requires estimation of kidney damage for at least three months as defined by structural or functional abnormalities of the kidney, manifested by either:Pathological abnormalities or Markers of kidney damage (including abnormalities in the composition of the blood or urine or abnormalities in imaging tests). Lab Interpretation Abnormal (test code = 22132-9) [facility]2019-09-18 17:18:00 Test Item Value Reference Range Interpretation Comments MAGNESIUM (test code = 9470574945) 1.8 mg/dL 1.7-2.4 Lab Interpretation (test code = Normal 56282-1) [facility] WITH [id number] 16:36:00 Test Item Value Reference Range Interpretation Comments WBC (test code = See_Comment H [Automated 8490-2) message] The sy stem which generated this result transmitted reference range : 4.20 - 10.70 10*3/?L. The reference range was not used to interpret this result as normal/abnormal . RBC (test code = See_Comment L [Automated 679-8) message] The sy stem which generated this result transmitted reference range : 4.26 - 5.52 10*6/?L. The reference range was not used to interpret this result as normal/abnormal . HGB (test code = 7.8 g/dL 12.2-16.4 L 718-7) HCT (test code = 24.8 % 38.4-49.3 L 4544-3) MCV (test code = 90.5 fL 81.7-95.6 787-2) MCH (test code = 28.5 pg 26.1-32.7 785-6) MCHC (test code = 31.5 g/dL 31.2-35 786-4) RDW-SD (test code = 62.5 fL 38.5-51.6 H 56052-2) RDW-CV (test code = 18.8 % 12.1-15.4 H 788-0) PLT (test code = See_Comment [Automated 777-3) message] The sy stem which generated this result transmitted reference range : 150 - 328 10*3/ ?L. The reference r johnna was not used to interpret this result as normal/abnormal . MPV (test code = 9.3 fL 9.8-13 L 58757-8) NRBC/100 WBC (test See_Comment [Automat ed code = 4425600565) message] The system which generated this result transmitted reference range : 0.0 - 10.0 /100 WBCs. The refer ence range was not u sed to interpret th is result as normal/abnormal . NRBC x10^3 (test code See_Comment [Auto mated = 8503542864) message] The s ystem which generated this result transmitted reference range : 10*3/?L. The reference range was not used to interpret this result as normal/abnormal . GRAN MAT (NEUT) % 74.8 % (test code = 770-8) IMM GRAN % (test code 0.40 % = 2013932248) LYMPH % (test code = 10.4 % 736-9) MONO % (test code = 10.8 % 5905-5) EOS % (test code = 3.2 % 713-8) BASO % (test code = 0.4 % 706-2) GRAN MAT x10^3(ANC) 8.54 10*3/uL 1.99-6.95 H (test code = 6688385113) IMM GRAN x10^3 (test 0.05 10*3/uL 0-0.06 code = 6448255082) LYMPH x10^3 (test code 1.19 10*3/uL 1.09-3.23 = 731-0) MONO x10^3 (test code 1.23 10*3/uL 0.36-1.02 H = 742-7) EOS x10^3 (test code = 0.36 10*3/uL 0.06-0.53 711-2) BASO x10^3 (test code 0.04 10*3/uL 0.01-0.09 = 704-7) Lab Interpretation Abnormal (test code = 49436-7) [facility] TylerFL TIME OR (NON-REPORTABLE)2019-03-08 14:23:25 These images do not require a Radiology diagnostic report.[facility] GLUCOSE (AUTOMATED)2019-03-08 12:20:00 Test Item Value Reference Range Interpretation Comments POCT GLU (test code = 6306587088) 95 mg/dL 70-110 Lab Interpretation (test code = Normal 38611-4) [facility] GLUCOSE (AUTOMATED)2019-03-08 01:15:00 Test Item Value Reference Range Interpretation Comments POCT GLU (test code = 5846635720) 96 mg/dL 70-110 Lab Interpretation (test code = Normal 04146-9) [facility] GLUCOSE (AUTOMATED)2019-03-08 01:14:00 Test Item Value Reference Range Interpretation Comments POCT GLU (test code = 6795363506) 106 mg/dL 70-110 Lab Interpretation (test code = Normal 11128-5) [facility] Tyler[facility] 1 [id number] 22:42:09XR CHEST 1 VW HISTORY: Permcath placement COMPARISON: Chest x-ray on 03/04/2019 FINDINGS: 1.?The tip of the right IJ tunneled central line is at the superiorcavoatrial junction. 2.?The lungs are mildly displaced, but clear with no focal consolidation. 3.?No pleural effusion or pneumothorax is present. 4.?The heart size is mildly enlarged, similar to the prior exams. 5.?No acute osseous abnormality. I,Sherman?MD Rose., have reviewed this study and agree withthe above report.Prmb, Radiant Results Inft User - 03/07/2019 5:42 PM CDTXR CHEST 1 VWHISTORY: Permcath placement COMPARISON: Chest x-ray on 03/04/2019FINDINGS:1. The tip of the right IJ tunneled central line is at the superiorcavoatrial junction.2. The lungs are mildly displaced, but clear with no focal consolidation.3. No pleural effusion or pneumothorax is present.4. The heart size is mildly enlarged, similar to the prior exams.5. No acute osseous abnormality.I, Sherman Rose MD., have reviewed this study and agree withthe above report.[facility] GLUCOSE(AGE >30DAYS)2019-03-07 19:02:00 Test Item Value Reference Range Interpretation Comments POCT Glu (age>30days) (test code = 102 mg/dL 70-110 3342) Lab Interpretation (test code = Normal 36254-2) [facility] GLUCOSE (AUTOMATED)2019-03-07 16:55:00 Test Item Value Reference Range Interpretation Comments POCT GLU (test code = 1168562565) 88 mg/dL 70-110 Lab Interpretation (test code = Normal 68189-1) [facility] TylerVITAMIN B12, [id number] 15:56:00 Test Item Value Reference Range Interpretation Comments VIT B12 (test code = 576 pg/mL 240-930 9285045030) MITCH (test code = MITCH) Biotin has been reported to cause a positive bias, interpret results relative to patient's use of biotin. Lab Interpretation (test Normal code = 26273-3) [facility] GLUCOSE (AUTOMATED)2019-03-07 12:52:00 Test Item Value Reference Range Interpretation Comments POCT GLU (test code = 4360184041) 90 mg/dL 70-110 Lab Interpretation (test code = Normal 11286-1) [facility] 10[facility]52:00 Test Item Value Reference Range Interpretation Comments MAGNESIUM (test code = 6362945143) 1.6 mg/dL 1.7-2.4 L Lab Interpretation (test code = Abnormal 31359-4) [facility] METABOLIC PANEL (36109)2019-03-07 10:51:00 Test Item Value Reference Range Interpretation Comments NA (test code = 141 mmol/L 135-145 3231681536) K (test code = 3.2 mmol/L 3.5-5 L 4257564602) CL (test code = 104 mmol/L 98-108 7651903336) CO2 TOTAL (test code = 24 mmol/L 23-31 6153741636) AGAP (test code = 2-16 2673314942) BUN (test code = 51 mg/dL 7-23 H 0994413850) GLUCOSE (test code = 93 mg/dL 70-110 1878002675) CREATININE (test code = 7.47 mg/dL 0.6-1.25 H 6039330295) TOTAL BILI (test code = 0.4 mg/dL 0.1-1.0 6292962837) CALCIUM (test code = 6.4 mg/dL 8.6-10.6 L 5184799204) T PROTEIN (test code = 6.9 g/dL 6.3-8.2 0800328504) ALBUMIN (test code = 2.8 g/dL 3.5-5 L 6245151920) ALK PHOS (test code = 88 U/L 34-122 5194078842) ALT(SGPT) (test code = 15 U/L 9-51 3551029500) AST(SGOT) (test code = 24 U/L 13-40 2114759486) eGFR Calculation mL/min/1.73m2 (Non-) (test code = 4910015604) eGFR Calculation mL/min/1.73m2 () (test code = 8007007107) MITCH (test code = MITCH) Association of Glomerular Filtration Rate (GFR) and Staging of Kidney Disease*+ + + +| GFR (mL/min/1.73 m2)?| With Kidney Damage?|?Without Kidney Damage+ --------+ --------+ +|?>90?|?S tage one?|? Normal?+ ---------+ ---------+ +|?60-89? |?Stage two?|? Decreased GFR? + --+ --+ ------+|?30-59?|?Stage three?|? Stage three? + --+ --+ ------+|?15-29?|?Stage four? |? Stage four?+ -------+ -------+ +|?<15 (or dialysis)?|?Stage five? |? Stage five?+ -------+ -------+ +*Each stage assumes the associated GFR level has been in effect for at least three months.?Stages 1 to 5, with or without kidney disease, indicate chronic kidney disease.Notes: Determination of stages one and two (with eGFR >59mL/min/1.73 m2) requires estimation of kidney damage for at least three months as defined by structural or functional abnormalities of the kidney, manifested by either:Pathological abnormalities or Markers of kidney damage (including abnormalities in the composition of the blood or urine or abnormalities in imaging tests). Lab Interpretation Abnormal (test code = 34453-6) [facility] 10:51:00 Test Item Value Reference Range Interpretation Comments PHOSPHORUS (test code = 8078987002) 6.0 mg/dL 2.5-5 H Lab Interpretation (test code = Abnormal 67437-8) [facility] WITH [id number] 09:56:00 Test Item Value Reference Range Interpretation Comments WBC (test code = See_Comment H [Automated 6690-2) message] The sy stem which generated this result transmitted reference range : 4.20 - 10.70 10*3/?L. The reference range was not used to interpret this result as normal/abnormal . RBC (test code = See_Comment L [Automated 789-8) message] The sy stem which generated this result transmitted reference range : 4.26 - 5.52 10*6/?L. The reference range was not used to interpret this result as normal/abnormal . HGB (test code = 8.0 g/dL 12.2-16.4 L 718-7) HCT (test code = 23.2 % 38.4-49.3 L 4544-3) MCV (test code = 85.6 fL 81.7-95.6 787-2) MCH (test code = 29.5 pg 26.1-32.7 785-6) MCHC (test code = 34.5 g/dL 31.2-35 786-4) RDW-SD (test code = 56.3 fL 38.5-51.6 H 06707-7) RDW-CV (test code = 18.1 % 12.1-15.4 H 788-0) PLT (test code = See_Comment [Automated 777-3) message] The sy stem which generated this result transmitted reference range : 150 - 328 10*3/ ?L. The reference r johnna was not used to interpret this result as normal/abnormal . MPV (test code = 9.5 fL 9.8-13 L 04472-7) NRBC/100 WBC (test See_Comment [Automat ed code = 7799424053) message] The system which generated this result transmitted reference range : 0.0 - 10.0 /100 WBCs. The refer ence range was not u sed to interpret th is result as normal/abnormal . NRBC x10^3 (test code See_Comment [Auto mated = 7072257468) message] The s ystem which generated this result transmitted reference range : 10*3/?L. The reference range was not used to interpret this result as normal/abnormal . GRAN MAT (NEUT) % 76.3 % (test code = 770-8) IMM GRAN % (test code 0.50 % = 4647179921) LYMPH % (test code = 9.4 % 736-9) MONO % (test code = 10.2 % 5905-5) EOS % (test code = 3.3 % 713-8) BASO % (test code = 0.3 % 706-2) GRAN MAT x10^3(ANC) 8.76 10*3/uL 1.99-6.95 H (test code = 9158373099) IMM GRAN x10^3 (test 0.06 10*3/uL 0-0.06 code = 7069508683) LYMPH x10^3 (test code 1.08 10*3/uL 1.09-3.23 L = 731-0) MONO x10^3 (test code 1.17 10*3/uL 0.36-1.02 H = 742-7) EOS x10^3 (test code = 0.38 10*3/uL 0.06-0.53 711-2) BASO x10^3 (test code 0.03 10*3/uL 0.01-0.09 = 704-7) Lab Interpretation Abnormal (test code = 05940-2) [facility]2019-03-07 01:17:00 Test Item Value Reference Range Interpretation Comments POCT GLU (test code = 0064505821) 99 mg/dL 70-110 Lab Interpretation (test code = Normal 34225-8) [facility] Packed RBC (in units), 2 Units 2019-03-07 00:26:50 Test Item Value Reference Range Interpretation Comments Cross Match Result Compatible (test code = 4409) ISBT Blood Type Code (test code = 710446) Unit Blood Type (test O Pos code = 4410) Unit Number (test [id number] code = 4411) Blood Expiration Date & Time (test code = 904061) Status Information Issued (test code = 4412) Product Red Blood Cells Identification (test code = 4413) Product Code (test [id number] Performed at [facility] code = 4414) Laboratory Services - [facility] Blood [address] [place] [id number] Free: [phone] A No. [id number] [facility] TylerTHYROID STIMULATING [id number] 23:49:00 Test Item Value Reference Range Interpretation Comments TSH (test code = See_Comment Biotin has been 5361087578) reported to cau se a negative bias, interpret resul ts relative to pat ient's use of biotin. [Automated mess age] The system Switch[employer] generated this result transmitted ref erence range: 0.45 - 4 .70 mIU/L. The refe rence range was not u sed to interpret this result as normal/abnor mal. Lab Interpretation (test Normal code = 97924-2) [facility] TylerFERRITIN [id number] 23:49:00 Test Item Value Reference Range Interpretation Comments FERRITIN (test code = 119.0 ng/mL 18-464 3594988937) MITCH (test code = MITCH) Biotin has been reported to cause a negative bias, interpret results relative to patient's use of biotin. Lab Interpretation (test Normal code = 21928-3) [facility] TylerLIPID PAN[facility] (40428)(TOTAL CHOLESTEROL, TRIGLYCERIDES, HDL)2019-03-06 23:05:00 Test Item Value Reference Range Interpretation Comments CHOL (test code = 97 mg/dL 120-200 L 0757968524) HDL (test code = 39 mg/dL >40 L 8111909883) HDLC RATIO (test code = See_Comment [Au tomated message] 3637347829) The system Switch[employer] generated this result transmit skye reference range : <=5.0. The refe rence range was not u sed to interpret th is result as normal/abnormal . TRIG (test code = 136 mg/dL 30-170 9163774527) LDL CHOL (test code = 31 mg/dL See_Comment [Auto mated message] 32541-3) The system [employer] generated this result transmit skye reference range : <=160. The refe rence range was not u sed to interpret th is result as normal/abnormal . VLDL (test code = 27 mg/dL 5-60 5310455800) Lab Interpretation (test Abnormal code = 82652-1) [facility] GLUCOSE (AUTOMATED)2019-03-06 21:10:00 Test Item Value Reference Range Interpretation Comments POCT GLU (test code = 5044317210) 134 mg/dL 70-110 H Lab Interpretation (test code = Abnormal 52709-9) [facility] GLUCOSE (AUTOMATED)2019-03-06 16:27:00 Test Item Value Reference Range Interpretation Comments POCT GLU (test code = 6956780644) 102 mg/dL 70-110 Lab Interpretation (test code = Normal 69462-1) [facility] P[facility] RBC (in units), 2 Units 2019-03-06 14:51:32 Test Item Value Reference Range Interpretation Comments Cross Match Result Compatible (test code = 4409) ISBT Blood Type Code (test code = 663808) Unit Blood Type (test O Pos code = 4410) Unit Number (test [id number] code = 4411) Blood Expiration Date & Time (test code = 860798) Status Information Issued (test code = 4412) Product Red Blood Cells Identification (test code = 4413) Product Code (test X0024L43 Performed at [facility] code = 4414) Laboratory Services - [facility] [address] [place], [place] [id number] Free: [phone] A No. [id number] [facility] TylerGLYCOSYLATED HEMOGLOBIN (A1C)2019-03-06 14:18:00 Test Item Value Reference Interpretation Comments Range HGB A1C (test code = See_Comment H [Autom ated 4548-4) message] The system which generated this result transmitted reference range : 4.0 - 6.0 % NGSP. The reference range was not used to interpret this result as normal/abnormal . MITCH (test code = %A1C (NGSP) MITCH) Interpretation (ADA)4.8-5.6? Normal or (Non-Diabetic Range)5.7-6.4? Increased Risk (Pre-Diabetic)>6.5?? Diabetes Indicated Lab Interpretation Abnormal (test code = 59216-2) [facility]. METABOLIC PANEL (82359)2019-03-06 12:12:00 Test Item Value Reference Range Interpretation Comments NA (test code = 143 mmol/L 135-145 9495468492) K (test code = 4.7 mmol/L 3.5-5 5482781727) CL (test code = 114 mmol/L 98-108 H 9972398081) CO2 TOTAL (test code = 14 mmol/L 23-31 L 0033141641) AGAP (test code = 2-16 3671709566) BUN (test code = 97 mg/dL 7-23 H 5489588880) GLUCOSE (test code = 123 mg/dL 70-110 H 6636898877) CREATININE (test code = 12.32 mg/dL 0.6-1.25 H 4196593633) TOTAL BILI (test code = <0.1 0.1-1.1 L 2064761499) CALCIUM (test code = 5.5 mg/dL 8.6-10.6 LL 4867034732) T PROTEIN (test code = 7.0 g/dL 6.3-8.2 5001709581) ALBUMIN (test code = 2.9 g/dL 3.5-5 L 3976572607) ALK PHOS (test code = 105 U/L 34-122 4596548781) ALT(SGPT) (test code = 13 U/L 9-51 5019451645) AST(SGOT) (test code = 17 U/L 13-40 4745696647) eGFR Calculation mL/min/1.73m2 (Non-) (test code = 7288151070) eGFR Calculation mL/min/1.73m2 () (test code = 4503922101) MITCH (test code = MITCH) Association of Glomerular Filtration Rate (GFR) and Staging of Kidney Disease*+ + + +| GFR (mL/min/1.73 m2)?| With Kidney Damage?|?Without Kidney Damage+ --------+ --------+ +|?>90?|?S tage one?|? Normal?+ ---------+ ---------+ +|?60-89? |?Stage two?|? Decreased GFR? + --+ --+ ------+|?30-59?|?Stage three?|? Stage three? + --+ --+ ------+|?15-29?|?Stage four? |? Stage four?+ -------+ -------+ +|?<15 (or dialysis)?|?Stage five? |? Stage five?+ -------+ -------+ +*Each stage assumes the associated GFR level has been in effect for at least three months.?Stages 1 to 5, with or without kidney disease, indicate chronic kidney disease.Notes: Determination of stages one and two (with eGFR >59mL/min/1.73 m2) requires estimation of kidney damage for at least three months as defined by structural or functional abnormalities of the kidney, manifested by either:Pathological abnormalities or Markers of kidney damage (including abnormalities in the composition of the blood or urine or abnormalities in imaging tests). Lab Interpretation Abnormal (test code = 79377-8) [facility]2019-09-16 11:44:00 Test Item Value Reference Range Interpretation Comments PHOSPHORUS (test code = 12.5 mg/dL 2.5-5 H 2222785890) Lab Interpretation (test code = Abnormal 95576-3) [facility] WITH [id number] 11:07:00 Test Item Value Reference Range Interpretation Comments WBC (test code = See_Comment H [Automated 6690-2) message] The sy stem which generated this result transmitted reference range : 4.20 - 10.70 10*3/?L. The reference range was not used to interpret this result as normal/abnormal . RBC (test code = See_Comment L [Automated 789-8) message] The sy stem which generated this result transmitted reference range : 4.26 - 5.52 10*6/?L. The reference range was not used to interpret this result as normal/abnormal . HGB (test code = 6.6 g/dL 12.2-16.4 L 718-7) HCT (test code = 20.9 % 38.4-49.3 L 4544-3) MCV (test code = 92.5 fL 81.7-95.6 787-2) MCH (test code = 29.2 pg 26.1-32.7 785-6) MCHC (test code = 31.6 g/dL 31.2-35 786-4) RDW-SD (test code = 58.0 fL 38.5-51.6 H 31961-2) RDW-CV (test code = 17.2 % 12.1-15.4 H 788-0) PLT (test code = See_Comment [Automated 777-3) message] The sy stem which generated this result transmitted reference range : 150 - 328 10*3/ ?L. The reference r johnna was not used to interpret this result as normal/abnormal . MPV (test code = 9.8 fL 9.8-13 52423-2) NRBC/100 WBC (test See_Comment [Automat ed code = 0889836198) message] The system which generated this result transmitted reference range : 0.0 - 10.0 /100 WBCs. The refer ence range was not u sed to interpret th is result as normal/abnormal . NRBC x10^3 (test code See_Comment [Auto mated = 5157522209) message] The s ystem which generated this result transmitted reference range : 10*3/?L. The reference range was not used to interpret this result as normal/abnormal . GRAN MAT (NEUT) % 78.6 % (test code = 770-8) IMM GRAN % (test code 0.80 % = 0088097745) LYMPH % (test code = 10.9 % 736-9) MONO % (test code = 9.1 % 5905-5) EOS % (test code = 0.4 % 713-8) BASO % (test code = 0.2 % 706-2) GRAN MAT x10^3(ANC) 9.03 10*3/uL 1.99-6.95 H (test code = 8609831396) IMM GRAN x10^3 (test 0.09 10*3/uL 0-0.06 H code = 1795291431) LYMPH x10^3 (test code 1.25 10*3/uL 1.09-3.23 = 731-0) MONO x10^3 (test code 1.04 10*3/uL 0.36-1.02 H = 742-7) EOS x10^3 (test code = 0.05 10*3/uL 0.06-0.53 L 711-2) BASO x10^3 (test code <0.03 0.01-0.09 = 704-7) Lab Interpretation Abnormal (test code = 51747-9) [facility] GLUCOSE (AUTOMATED)2019-03-06 01:44:00 Test Item Value Reference Range Interpretation Comments POCT GLU (test code = 5193189006) 140 mg/dL 70-110 H Lab Interpretation (test code = Abnormal 19376-6) [facility] GLUCOSE (AUTOMATED)2019-03-05 21:15:00 Test Item Value Reference Range Interpretation Comments POCT GLU (test code = 6914621964) 112 mg/dL 70-110 H Lab Interpretation (test code = Abnormal 55004-4) [facility] Surface Antibody (HBsAb)2019-03-05 18:31:00 Test Item Value Reference Range Interpretation Comments HBsAB (test code = Negative 1411150945) HBsAb mIU/mL Semi-Quantitative (test code = 6957114259) MITCH (test code = Interpretation:?Hepatitis MITCH) B Surface Antibody? ? Negative - Patient is considered to be not immune to infection with HBV.? Positive - Anti-HBs detected at greater than or equal to 12 mIU/mL.?Patient is considered to be immune to infection with HBV.? [facility] B Surface Antigen (HBsAg)2019-03-05 18:14:00 Test Item Value Reference Range Interpretation Comments HBsAg Semi-Quantitative (test code = 5195-3) [facility] GLUCOSE (AUTOMATED)2019-03-05 17:01:00 Test Item Value Reference Range Interpretation Comments POCT GLU (test code = 7451841801) 222 mg/dL 70-110 H Lab Interpretation (test code = Abnormal 22625-5) [facility] GLUCOSE (AUTOMATED)2019-03-05 13:19:00 Test Item Value Reference Range Interpretation Comments POCT GLU (test code = 0374467414) 142 mg/dL 70-110 H Lab Interpretation (test code = Abnormal 31154-4) [facility] 10:00:00 Test Item Value Reference Range Interpretation Comments APPEARANCE (test code = Cloudy Clear A 5023317378) COLOR (test code = Yellow Yellow 2017114425) PH (test code = 4.8-8.0 6948232334) SP GRAVITY (test code = 1.003-1.030 1822812391) GLU U QUAL (test code = 50 mg/dL Normal A 0959727000) BLOOD (test code = 2+ Negative A 9508540571) KETONES (test code = Negative Negative 5183067222) PROTEIN (test code = 500 mg/dL Negative A 2887-8) UROBILIN (test code = Normal Normal 4090569846) BILIRUBIN (test code = Negative Negative 0203550524) NITRITE (test code = Negative Negative 9952024951) LEUK CHAPITO (test code = 500/uL Negative A 3464634430) RBC/HPF (test code = See_Comment H [Autom ated message] 8737264892) The system [employer] generated this result transmit skye reference range : 0 - 3 HPF. The refe rence range was not u sed to interpret th is result as normal/abnormal . WBC/HPF (test code = See_Comment H [Autom ated message] 8000963891) The system Switch[employer] generated this result transmit skye reference range : 0 - 5 HPF. The refe rence range was not u sed to interpret th is result as normal/abnormal . BACTERIA (test code = Few Negative A 8961900882) MUCOUS (test code = Slight Negative LPF A 8756365723) SQ EPITH (test code = HPF 3769147488) WBC CLUMPS (test code = See_Comment H [Au tomated message] 4072274706) The system [employer] generated this result transmit skye reference range : <=1 HPF. The refere nce range was not u sed to interpret th is result as normal/abnormal . YEAST BUD (test code = See_Comment [Aut omated message] 0079790782) The system [employer] generated this result transmit skye reference range : <=1 HPF. The refere nce range was not u sed to interpret th is result as normal/abnormal . SPERM (test code = See_Comment [Automat ed message] 9224800530) The system Switch[employer] generated this result transmit skye reference range : <=1 HPF. The refere nce range was not u sed to interpret th is result as normal/abnormal . HYAL CAST (test code = See_Comment [Aut omated message] 7870815100) The system [employer] generated this result transmit skye reference range : <=2 LPF. The refere nce range was not u sed to interpret th is result as normal/abnormal . Lab Interpretation (test Abnormal code = 72042-9) [facility] WITH [id number] 05:43:00 Test Item Value Reference Range Interpretation Comments WBC (test code = See_Comment H [Automated 6690-2) message] The system which generated this result transmit skye reference range : 4.20 - 10.70 10*3/?L. The reference range was not used to interpret this result as normal/abnormal . RBC (test code = See_Comment L [Automated 789-8) message] The system which generated this result transmit skye reference range : 4.26 - 5.52 10*6/?L. The reference range was not used to interpret this result as normal/abnormal . HGB (test code = 7.1 g/dL 12.2-16.4 L 718-7) HCT (test code = 22.1 % 38.4-49.3 L 4544-3) MCV (test code = 91.7 fL 81.7-95.6 787-2) MCH (test code = 29.5 pg 26.1-32.7 785-6) MCHC (test code = 32.1 g/dL 31.2-35 786-4) RDW-SD (test code = 57.3 fL 38.5-51.6 H 96174-7) RDW-CV (test code = 17.1 % 12.1-15.4 H 788-0) PLT (test code = See_Comment [Automated 777-3) message] The system which generated this result transmit skye reference range : 150 - 328 10*3/ ?L. The reference range was not u sed to interpret th is result as normal/abnormal . MPV (test code = 9.5 fL 9.8-13 L 04686-9) NRBC/100 WBC (test See_Comment [Automat ed code = 5340732968) message] The system which generated this result transmit skye reference range : 0.0 - 10.0 /100 WBCs. The reference range was not used to interpret this result as normal/abnormal . NRBC x10^3 (test code See_Comment [Auto mated = 4548704265) message] The system which generated this result transmit skye reference range : 10*3/?L. The reference range was not used to interpret this result as normal/abnormal . GRAN MAT (NEUT) % 95.9 % (test code = 770-8) IMM GRAN % (test code 0.70 % = 9251434085) LYMPH % (test code = 2.8 % 736-9) MONO % (test code = 0.5 % 5905-5) EOS % (test code = 0.0 % 713-8) BASO % (test code = 0.1 % 706-2) GRAN MAT x10^3(ANC) 10.35 10*3/uL 1.99-6.95 H (test code = 0892531871) IMM GRAN x10^3 (test 0.08 10*3/uL 0-0.06 H code = 6343461377) LYMPH x10^3 (test code 0.30 10*3/uL 1.09-3.23 L = 731-0) MONO x10^3 (test code 0.05 10*3/uL 0.36-1.02 L = 742-7) EOS x10^3 (test code = <0.03 0.06-0.53 L 711-2) BASO x10^3 (test code <0.03 0.01-0.09 = 704-7) Lab Interpretation Abnormal (test code = 27179-1) [facility] METABOLIC PANEL (NA, K, CL, CO2, GLUCOSE, BUN, CREATININE, CA)2019-03-05 04:31:00 Test Item Value Reference Range Interpretation Comments NA (test code = 141 mmol/L 135-145 8484758369) K (test code = 4.5 mmol/L 3.5-5 8103540923) CL (test code = 113 mmol/L 98-108 H 2898274069) CO2 TOTAL (test code = 11 mmol/L 23-31 L 6812923505) AGAP (test code = 2-16 H 7996922556) BUN (test code = 79 mg/dL 7-23 H 3437923774) GLUCOSE (test code = 114 mg/dL 70-110 H 9776479874) CREATININE (test code = 10.69 mg/dL 0.6-1.25 H 9119518122) CALCIUM (test code = 6.5 mg/dL 8.6-10.6 L 0651188979) eGFR Calculation mL/min/1.73m2 (Non-) (test code = 1537067817) eGFR Calculation mL/min/1.73m2 () (test code = 2037178495) MITCH (test code = MITCH) Association of Glomerular Filtration Rate (GFR) and Staging of Kidney Disease*+ + + +| GFR (mL/min/1.73 m2)?| With Kidney Damage?|?Without Kidney Damage+ --------+ --------+ +|?>90?|?S tage one?|? Normal?+ ---------+ ---------+ +|?60-89? |?Stage two?|? Decreased GFR? + --+ --+ ------+|?30-59?|?Stage three?|? Stage three? + --+ --+ ------+|?15-29?|?Stage four? |? Stage four?+ -------+ -------+ +|?<15 (or dialysis)?|?Stage five? |? Stage five?+ -------+ -------+ +*Each stage assumes the associated GFR level has been in effect for at least three months.?Stages 1 to 5, with or without kidney disease, indicate chronic kidney disease.Notes: Determination of stages one and two (with eGFR >59mL/min/1.73 m2) requires estimation of kidney damage for at least three months as defined by structural or functional abnormalities of the kidney, manifested by either:Pathological abnormalities or Markers of kidney damage (including abnormalities in the composition of the blood or urine or abnormalities in imaging tests). Lab Interpretation Abnormal (test code = 44567-8) [facility] Tyler[facility] [id number] 04:26:00 Test Item Value Reference Range Interpretation Comments IRON (test code = 1393651463) 65 ug/dL 50-160 TIBC (test code = 8449495133) 219 ug/dL 250-410 L % FE SAT (test code = 8977501537) 30 % 20-50 Lab Interpretation (test code = Abnormal 11594-5) [facility]2019-09-15 04:17:00 Test Item Value Reference Range Interpretation Comments PHOSPHORUS (test code = 11.1 mg/dL 2.5-5 H 5500434921) Lab Interpretation (test code = Abnormal 28987-4) [facility] WITH [id number] 03:55:00 Test Item Value Reference Range Interpretation Comments WBC (test code = See_Comment H [Automated 9190-2) message] The system which generated this result transmit skye reference range : 4.20 - 10.70 10*3/?L. The reference range was not used to interpret this result as normal/abnormal . RBC (test code = See_Comment L [Automated 789-8) message] The system which generated this result transmit skye reference range : 4.26 - 5.52 10*6/?L. The reference range was not used to interpret this result as normal/abnormal . HGB (test code = 5.6 g/dL 12.2-16.4 L 718-7) HCT (test code = 17.2 % 38.4-49.3 L 4544-3) MCV (test code = 92.0 fL 81.7-95.6 787-2) MCH (test code = 29.9 pg 26.1-32.7 785-6) MCHC (test code = 32.6 g/dL 31.2-35 786-4) RDW-SD (test code = 55.8 fL 38.5-51.6 H 77953-3) RDW-CV (test code = 16.8 % 12.1-15.4 H 788-0) PLT (test code = See_Comment H [Automated 777-3) message] The system which generated this result transmit skye reference range : 150 - 328 10*3/ ?L. The reference range was not u sed to interpret th is result as normal/abnormal . MPV (test code = 9.6 fL 9.8-13 L 83191-7) NRBC/100 WBC (test See_Comment [Automat ed code = 3694644045) message] The system which generated this result transmit skye reference range : 0.0 - 10.0 /100 WBCs. The reference range was not used to interpret this result as normal/abnormal . NRBC x10^3 (test code <0.01 See_Comment [Auto mated = [id number]) message] The system which generated this result transmit skye reference range : 10*3/?L. The reference range was not used to interpret this result as normal/abnormal . GRAN MAT (NEUT) % 96.4 % (test code = 770-8) IMM GRAN % (test code 0.70 % = 1014690880) LYMPH % (test code = 2.5 % 736-9) MONO % (test code = 0.3 % 5905-5) EOS % (test code = 0.0 % 713-8) BASO % (test code = 0.1 % 706-2) GRAN MAT x10^3(ANC) 12.04 10*3/uL 1.99-6.95 H (test code = 8390196807) IMM GRAN x10^3 (test 0.09 10*3/uL 0-0.06 H code = 7570504814) LYMPH x10^3 (test code 0.31 10*3/uL 1.09-3.23 L = 731-0) MONO x10^3 (test code 0.04 10*3/uL 0.36-1.02 L = 742-7) EOS x10^3 (test code = <0.03 0.06-0.53 L 711-2) BASO x10^3 (test code <0.03 0.01-0.09 = 704-7) Lab Interpretation Abnormal (test code = 13797-7) [facility]1C)2019-03-05 02:38:00HGB F9NMelpcbc: Hemoglobin value too low to calculate UkbQ3d7.0 - 6.0 %[facility]%A1C (NGSP) Interpretation (ADA)4.8-5.6? Normal or (Non-Diabetic Range)5.7-6.4? Increased Risk(Pre- Diabetic)>6.5?Di[facility] IndicatedUnEastland [facility] HospitalXR CHEST 1 [id number] 22:33:37 Interval placement of right IJ approach central venous catheter terminatingwithin the right atrium.No pneumothorax. Bilateral vascular congestion and mild interstitial edema. IJose MD., have reviewed this study and agree with theabove report.XR CHEST 1 VW HISTORY: marcus cath RIJ placement. COMPARISON: Same day chest radiograph FINDINGS: Interval placement of right IJ approach central venous catheter whichterminates at the right atrium. Suboptimal inspiratory volumes with suggestion of vascular congestion andinterstitial pulmonary edema. No pleural effusion or pneumothorax. The heart is normal in size. No acute osseous abnormality. [facility], Radiant Results Inft User - 03/04/2019 5:33 PM CDTXR CHEST 1 VWHISTORY: marcus cath RIJ placement. COMPARISON: Same day chest radiographFINDINGS:Interval placement of right IJ approach central venous catheter whichterminates at the right atriu m.Suboptimal inspiratory volumes with suggestion of vascular congestion andinterstitial pulmonary edema. No pleural effusion or pneumothorax.The heart is normal in size.No acute osseous abnormality.IMPRESSIONInterval placement of right IJ approach central venous catheter terminatingwithin the right atrium.No pneumothorax.Bilateral vascular congestion and mild interstitial edema.I, Tee Dick MD., have reviewed this study and agree with theabove report. [facility]2019-09-14 22:31:00 Test Item Value Reference Range Interpretation Comments PHOSPHORUS (test code = 14.7 mg/dL 2.5-5 H 8485240858) Lab Interpretation (test code = Abnormal 21783-6) [facility] TylerCentral [id number] 20:34:19Sebsatián Hussein DO? 03/04/2019?3:49 PMCentral LineDate/Time: 03/04/2019 3:38 PMPerformed by: Sebastián Hussein DOAuthorized by: Sebastián Hussein DO Consent: ?Consent obtained:?Written?Consent given by:?Patient?Risks discussed:?Arterial puncture, incorrect placement, pneumothorax, infection, bleeding andnerve damage?Alternatives discussed:?No treatment and delayed treatmentPre-procedure details: ?Hand hygiene: Hand hygiene performed prior to insertion?Sterile barrier technique: All elements of maximalsterile technique followed?Skin preparation:?ChloraPrep?Skin preparation agent: Skin preparation agent completely dried prior to procedure?Anesthesia (see MAR for exact dosages): ?Anesthesia method:?Local infiltration?Local anesthetic:?Lidocaine 1% WITH epiProcedure details: ?Location:?R internal jugular?Patient position:?Trendelenburg?Procedural supplies:?Double lumen?Catheter size: 12.5.?Landmarks identified: yes?Ultrasound guidance: yes?Sterile ultrasound techniques: Sterile gel and sterile probecovers were used?Number of attempts:?1?Successful placement: yes?Post-procedure details: ?Post-proced ure:?Dressing applied?Assessment:?Blood return through all ports, free fluid flow and placement verified by x-ray?Patient tolerance of procedure:?Tolerated well, no immediate complicationsComments: ? Mahurkar cath placement.[facility] 1 [id number] 19:29:10No acute cardiopulmonary abnormality. Borderline enlarged heart. Jose Brizuela MD., have reviewed this study and agree with theabove report.XR CHEST 1 VW HISTORY: sob COMPARISON: Chest radiograph 04/11/2018 FINDINGS: The lungs are clear. No focal consolidation, pleural effusion orpneumothorax.Borderline enlarged heart. No acute osseous abnormality. [facility], Radiant Results Inft User - 03/04/2019 2:29 PM CDTXR CHEST 1 VWHISTORY: sob COMPARISON: Chest radiograph 04/11/2018 FINDINGS:The lungs areclear. No focal consolidation, pleural effusion orpneumothorax.Borderline enlarged heart.No acute osseous abnormality.IMPRESSIONNo acute cardiopulmonary abnormality. Borderline enlarged heart.Shivani Brizuela MD., have reviewed this study and agree with theabove report.[facility] TylerType and Screen - ONCE [id number] 19:28:36 Test Item Value Reference Range Interpretation Comments ABO & RH (test code O Positive Performe d at [facility] = 20) Laboratory [facility] [place], [place] [id number] Free: [phone] A No. [id number] IAT (test code = Negative Performed a t [facility] 1185) [facility] [address] [place], [place] [address]Toll Free: [phone] A No. [id number] [facility] TylerCOMP. METABOLIC PANEL ([id number])2019-03-04 17:56:00 Test Item Value Reference Range Interpretation Comments NA (test code = 142 mmol/L 135-145 5977434186) K (test code = 5.8 mmol/L 3.5-5 H 3302954140) CL (test code = 117 mmol/L 98-108 H 4054888635) CO2 TOTAL (test code = 9 mmol/L 23-31 L 9582162483) AGAP (test code = 2-16 4044958136) BUN (test code = 103 mg/dL 7-23 H 2171069365) GLUCOSE (test code = 102 mg/dL 70-110 3508547610) CREATININE (test code = 15.25 mg/dL 0.6-1.25 H 4720747362) TOTAL BILI (test code = 0.1 mg/dL 0.1-1.6 2181556531) CALCIUM (test code = 5.5 mg/dL 8.6-10.6 LL 5973236740) T PROTEIN (test code = 7.5 g/dL 6.3-8.2 9703776524) ALBUMIN (test code = 3.1 g/dL 3.5-5 L 7307472377) ALK PHOS (test code = 103 U/L 34-122 7057973540) ALT(SGPT) (test code = 16 U/L 9-51 8108657289) AST(SGOT) (test code = 17 U/L 13-40 5942420714) eGFR Calculation mL/min/1.73m2 (Non-) (test code = 9161909547) eGFR Calculation mL/min/1.73m2 () (test code = 5353683149) MITCH (test code = MITCH) Association of Glomerular Filtration Rate (GFR) and Staging of Kidney Disease*+ + + +| GFR (mL/min/1.73 m2)?| With Kidney Damage?|?Without Kidney Damage+ --------+ --------+ +|?>90?|?S malue one?|? Normal?+ ---------+ ---------+ +|?60-89? |?Stage two?|? Decreased GFR? + --+ --+ ------+|?30-59?|?Stage three?|? Stage three? + --+ --+ ------+|?15-29?|?Stage four? |? Stage four?+ -------+ -------+ +|?<15 (or dialysis)?|?Stage five? |? Stage five?+ -------+ -------+ +*Each stage assumes the associated GFR level has been in effect for at least three months.?Stages 1 to 5, with or without kidney disease, indicate chronic kidney disease.Notes: Determination of stages one and two (with eGFR >59mL/min/1.73 m2) requires estimation of kidney damage for at least three months as defined by structural or functional abnormalities of the kidney, manifested by either:Pathological abnormalities or Markers of kidney damage (including abnormalities in the composition of the blood or urine or abnormalities in imaging tests). Lab Interpretation Abnormal (test code = 36085-8) [facility] WITH [id number] 17:34:00 Test Item Value Reference Range Interpretation Comments WBC (test code = See_Comment H [Automated 6690-2) message] The sy stem which generated this result transmitted reference range : 4.20 - 10.70 10*3/?L. The reference range was not used to interpret this result as normal/abnormal . RBC (test code = See_Comment L [Automated 789-8) message] The sy stem which generated this result transmitted reference range : 4.26 - 5.52 10*6/?L. The reference range was not used to interpret this result as normal/abnormal . HGB (test code = 6.5 g/dL 12.2-16.4 L 718-7) HCT (test code = 20.2 % 38.4-49.3 L 4544-3) MCV (test code = 94.4 fL 81.7-95.6 787-2) MCH (test code = 30.4 pg 26.1-32.7 785-6) MCHC (test code = 32.2 g/dL 31.2-35 786-4) RDW-SD (test code = 59.6 fL 38.5-51.6 H 71096-0) RDW-CV (test code = 17.2 % 12.1-15.4 H 788-0) PLT (test code = See_Comment [Automated 777-3) message] The sy stem which generated this result transmitted reference range : 150 - 328 10*3/ ?L. The reference r johnna was not used to interpret this result as normal/abnormal . MPV (test code = 9.5 fL 9.8-13 L 84125-2) NRBC/100 WBC (test See_Comment [Automat ed code = 4841801563) message] The system which generated this result transmitted reference range : 0.0 - 10.0 /100 WBCs. The refer ence range was not u sed to interpret th is result as normal/abnormal . NRBC x10^3 (test code See_Comment [Auto mated = 5491301624) message] The s ystem which generated this result transmitted reference range : 10*3/?L. The reference range was not used to interpret this result as normal/abnormal . GRAN MAT (NEUT) % 85.4 % (test code = 770-8) IMM GRAN % (test code 0.60 % = 0238901201) LYMPH % (test code = 7.1 % 736-9) MONO % (test code = 5.1 % 5905-5) EOS % (test code = 1.5 % 713-8) BASO % (test code = 0.3 % 706-2) GRAN MAT x10^3(ANC) 9.31 10*3/uL 1.99-6.95 H (test code = 0500301747) IMM GRAN x10^3 (test 0.06 10*3/uL 0-0.06 code = 4473417678) LYMPH x10^3 (test code 0.77 10*3/uL 1.09-3.23 L = 731-0) MONO x10^3 (test code 0.56 10*3/uL 0.36-1.02 = 742-7) EOS x10^3 (test code = 0.16 10*3/uL 0.06-0.53 711-2) BASO x10^3 (test code 0.03 10*3/uL 0.01-0.09 = 704-7) Lab Interpretation Abnormal (test code = 44201-7) [facility]"
[2022-09-27 19:47] LABS: Absolute Lymphocytes (CBC) 0.3 K/uL (0.7-4.9); Lymphocytes % 1.4 % (15.3-44.8); MCV 96.9 fL (80-100); MPV 7.5 fL (7.6-11.3); RBC Red Blood Cell Count 2.99 M/uL (4.33-5.43)
[2022-09-27] MEDS ORDERED: ACETAMINOPHEN 500 MG TAB ONE (19:53)
[2022-09-27 20:02] LABS: Protime INR 1.09
[2022-09-27 20:05] LABS: Magnesium 2.2 mg/dL (1.6-2.4)
--- NOTE | 2022-09-27 20:26 | EDPHYS ---
Physician Documentation [facility] Name: Jp Joe Age: 41 yrs Sex: Male : 1980 Arrival Date: 09/27/2022 Time: 18:16 Bed 20 Private MD: ED Physician Jp Reddy HPI: 09/27 19:15 This 41 yrs old Male presents to ER via Ambulatory with complaints of Wound cp Check. 19:15 The patient presents with swelling, tenderness, open wound. The complaints affect the cp plantar surface of left foot. 19:15 Onset: The symptoms/episode began/occurred at an unknown time. and became worse over cp past several days. Associated signs and symptoms: Pertinent positives: fever, warmth, drainage from wound. Patient reports history of left fifth toe amputation by DR Patel in the past. Historical: - Allergies: 18:44 No Known Allergies; ll1 - PMHx: 18:44 Diabetes - NIDDM; neuropathy; Dialysis MWF; Hypertensive disorder; ll1 - PSHx: 18:44 skin graft groin area; Dialysis access L arm; L foot 5th digit amputation; ll1 - Immunization history:: Client reports receiving the 2nd dose of the Covid vaccine. - Social history:: Smoking status: Patient reports the use of cigarette tobacco products, smokes one pack cigarettes per day. ROS: 19:20 Constitutional: Positive for fever. cp 19:20 Respiratory: Negative for shortness of breath, wheezing. cp 19:20 Abdomen/GI: Negative for abdominal pain, nausea, vomiting, and diarrhea. 19:20 Skin: Positive for erythema, swelling, of the plantar surface of left foot, open wound. 19:20 Neuro: Negative for altered mental status. 19:20 All other systems are negative. Exam: 19:25 Constitutional: The patient appears in no acute distress, alert, awake, cp non-diaphoretic, non-toxic, well developed, well nourished. 19:25 Head/Face: Normocephalic, atraumatic. cp 19:25 Eyes: Periorbital structures: appear normal, Conjunctiva: normal, no exudate, no injection, Sclera: no appreciated abnormality, Lids and lashes: appear normal, bilaterally. 19:25 ENT: External ear(s): are unremarkable, Nose: is normal, Mouth: Lips: moist, Oral mucosa: pink and intact, moist, Posterior pharynx: is normal, airway is patent, no erythema, no exudate. 19:25 Chest/axilla: Inspection: normal. 19:25 Cardiovascular: Rate: normal, Rhythm: regular, Edema: is not appreciated, JVD: is not appreciated. 19:25 Respiratory: the patient does not display signs of respiratory distress, Respirations: normal, no use of accessory muscles, no retractions, labored breathing, is not present. 19:25 Abdomen/GI: Inspection: abdomen appears normal, Palpation: abdomen is soft and non-tender, in all quadrants. 19:25 Back: pain, is absent, ROM is normal. 19:25 Musculoskeletal/extremity: Extremities: noted in the left foot: left fifth toe cp amputated with surgical site appearing well healed, nickel size open wound noted distal left fifth metatarsal with small amount purulent drainage expressed, foul smelling and erythema and mild swelling. 19:25 Neuro: Orientation: to person, place \T\ time. Mentation: is normal, Motor: moves all cp fours, strength is normal, Sensation: light touch is decreased in the left foot. 19:50 ECG was reviewed by the Attending Physician. cp Vital Signs: 18:46 BP 131 / 74; Pulse 98; Resp 18; Temp 101.4; Pulse Ox 97% ; Weight 115.67 kg; Height 5 ll1 ft. 9 in. ; Pain 0/10; 19:57 BP 134 / 74; Pulse 93; Resp 18; Pulse Ox 95% on R/A; ea2 21:47 Pulse 90; Resp 18; Temp 99; Pulse Ox 100% ; ea2 21:47 BP 111 / 61; ea2 18:46 Body Mass Index 37.66 (115.67 kg, 175.26 cm) ll1 18:46 Pain Scale: Adult ll1 MDM: 18:49 Patient medically screened. cp 20:20 Management of patient was discussed with the following: Patternator: DR Patel who will cp consult on patient after discussion. 21:45 Data reviewed: vital signs, nurses notes, lab test result(s), EKG, radiologic studies, cp plain films, and as a result, I will admit patient. 21:45 Management of patient was discussed with the following: Hospitalist: Davina Goldsmith who cp will admit after discussion of today's results. Care significantly affected by the following chronic conditions: Diabetes, Hypertension. Counseling: I had a detailed discussion with the patient and/or guardian regarding: the historical points, exam findings, and any diagnostic results supporting the discharge/admit diagnosis, lab results, radiology results, the need for further work-up and treatment in the hospital. 09/27 19:14 Order name: CRP; Complete Time: 20:17 cp 09/27 20:17 Interpretation: C-REACTIVE PROT 124.00. cp 09/27 19:14 Order name: CBC with Diff; Complete Time: 21:41 cp 09/27 20:18 Interpretation: Normal except: WBC 18.90; RBC 2.99; HGB 9.8; HCT 29.0; MPV 7.5; SOLO% cp 92.6; LYM% 1.4; NEUT A 17.5; LYMA 0.3. 09/27 19:14 Order name: Magnesium; Complete Time: 20:17 cp 09/27 19:14 Order name: PT-INR; Complete Time: 20:17 cp 09/27 19:14 Order name: Wound Culture cp 09/27 19:14 Order name: Lactate w/ 2H reflex if indic.; Complete Time: 20:40 cp 09/27 19:14 Order name: Procalcitonin; Complete Time: 20:17 cp 09/27 20:18 Interpretation: Reviewed. cp 09/27 19:14 Order name: Blood Culture Adult (2) cp 09/27 20:48 Order name: BMP sb4 09/27 21:09 Order name: Manual Differential; Complete Time: 21:41 EDMS 09/27 19:14 Order name: XRAY Foot LEFT 2 View; Complete Time: 21:41 cp 09/27 19:14 Order name: XRAY Chest (1 view); Complete Time: 21:41 cp 09/27 20:31 Order name: Foot Left Wo Con EDMS 09/27 19:14 Order name: EKG; Complete Time: 19:15 cp 09/27 19:14 Order name: Cardiac monitoring; Complete Time: 19:49 cp 09/27 19:14 Order name: EKG - Nurse/Tech; Complete Time: 19:49 cp 09/27 19:14 Order name: IV Saline Lock; Complete Time: 19:37 cp 09/27 19:14 Order name: Labs collected and sent; Complete Time: 19:37 cp 09/27 19:14 Order name: O2 Per Protocol; Complete Time: 19:37 cp 09/27 19:14 Order name: O2 Sat Monitoring; Complete Time: :49 cp EC:50 Rate is 93 beats/min. Rhythm is regular. [place] interval is normal. QRS interval is normal. cp QT interval is normal. T waves are Inverted in leads III, aVF, aVR. Interpreted by me. Reviewed by me. Administered Medications: :49 Drug: Acetaminophen PO 1000 mg Route: PO; ea2 21:44 Follow up: Response: No adverse reaction ea2 20:29 Drug: vancoMYCIN IVPB 1 grams Route: IVPB; Infused Over: 2 hrs; Site: right antecubital;ea2 :44 Follow up: IV Status: Infusion continued upon transfer ea2 Disposition Summary: 09/27/22 20:25 Hospitalization Ordered Hospitalization Status: Inpatient Admission cp Location: Telemetry/MedSurg (Inpatient) cp Condition: Stable cp Problem: new cp Symptoms: have improved cp Bed/Room Type: Standard cp Provider: Enrico Leal(09/27/22 20:44) sb4 Room Assignment: 409(09/27/22 21:00) Diagnosis - Cellulitis of left lower limb - left foot cp Forms: - Medication Reconciliation Form cp - SBAR form cp Signatures: Dispatcher [employer] EDMS Marlyn Villafana RN RN Javier Griffith PA PA cp Lewis, Lynsay, RN RN ll1 Helen Goldsmith PA-C PA-C sb4 Lora Blas RN RN ea2 Corrections: (The following items were deleted from the chart) 20:44 20:25 Helen Goldsmith cp sb4 21:00 20:25 cp 09/28 02:55 02:53 ECG was reviewed by the Attending Physician. [facility] 02:55 02:53 Rate is 93 beats/min. Rhythm is regular. W[place] interval is normal. QRS interval is cp normal. QT interval is normal. T waves are Inverted in leads III, aVF, aVR. Interpreted by me. Reviewed by me. cp
--- NOTE | 2022-09-27 20:26 | ER ---
Nurse's Notes [facility] Name: Jp Joe Age: 41 yrs Sex: Male : 1980 Arrival Date: 09/27/2022 Time: 18:16 Bed 20 Private MD: Diagnosis: Cellulitis of left lower limb-left foot Presentation: 09/27 18:46 Chief complaint: Patient states: L foot was healing well, but 4-5 days it started to ll1 get infected again. + chills, some nausea. Coronavirus screen: Vaccine status: Patient reports receiving the 2nd dose of the covid vaccine. Client denies travel out of the [place] in the last 14 days. At this time, the client does not indicate any symptoms associated with coronavirus-19. Ebola Screen: Patient denies travel to an Ebola-affected area in the 21 days before illness onset. Initial Sepsis Screen: Does the patient meet any 2 criteria? No. Patient's initial sepsis screen is negative. Does the patient have a suspected source of infection? Yes: Skin breakdown/wound. Risk Assessment: Do you want to hurt yourself or someone else? Patient reports no desire to harm self or others. Onset of symptoms was September 23, 2022. 18:46 Method Of Arrival: Ambulatory ll1 18:46 Acuity: JOHN 3 ll1 Triage Assessment: 18:48 General: Appears in no apparent distress. Behavior is calm, cooperative, appropriate ll1 for age. General: Reports chills for fever for feeling ill for fatigue for. Pain: Denies pain. Derm: Reports L foot ulcer/wound getting red, swollen, painful. + chills. Historical: - Allergies: 18:44 No Known Allergies; ll1 - PMHx: 18:44 Diabetes - NIDDM; neuropathy; Dialysis MWF; Hypertensive disorder; ll1 - PSHx: 18:44 skin graft groin area; Dialysis access L arm; L foot 5th digit amputation; ll1 - Immunization history:: Client reports receiving the 2nd dose of the Covid vaccine. - Social history:: Smoking status: Patient reports the use of cigarette tobacco products, smokes one pack cigarettes per day. Screenin:49 Abuse screen: Denies threats or abuse. Nutritional screening: No deficits noted. ea2 Tuberculosis screening: No symptoms or risk factors identified. Assessment: 19:00 General: Appears in no apparent distress. Behavior is calm, cooperative, appropriate ea2 for age. 19:00 Pain: Complains of pain in left foot. Neuro: Level of Consciousness is awake, alert, ea2 obeys commands, Oriented to person, place, time. Cardiovascular: Patient's skin is warm and dry. Respiratory: Airway is patent Respiratory effort is even, unlabored, Respiratory pattern is regular, symmetrical. Derm: Decubitus located on left is draining moderate amount malodorous, purulent. 21:19 Reassessment: Patient and/or family updated on plan of care and expected duration. Pain ea2 level reassessed. Patient is alert, oriented x 3, equal unlabored respirations, skin warm/dry/pink. Pt admitted to fourth floor. Vital Signs: 18:46 BP 131 / 74; Pulse 98; Resp 18; Temp 101.4; Pulse Ox 97% ; Weight 115.67 kg; Height 5 ll1 ft. 9 in. ; Pain 0/10; 19:57 BP 134 / 74; Pulse 93; Resp 18; Pulse Ox 95% on R/A; ea2 21:47 Pulse 90; Resp 18; Temp 99; Pulse Ox 100% ; ea2 21:47 BP 111 / 61; ea2 18:46 Body Mass Index 37.66 (115.67 kg, 175.26 cm) ll1 18:46 Pain Scale: Adult ll1 ED Course: 18:16 Patient arrived in ED. rg4 18:18 Jp Reddy MD is Attending Physician. kdr 18:34 Javier Spears PA is PHCP. cp 18:34 Jp Reddy MD is Attending Physician. cp 18:48 Triage completed. ll1 18:48 Arm band placed on Patient placed in an exam room, on a stretcher. ll1 19:21 Lora Blas, SANA is Primary Nurse. ea2 19:49 Patient has correct armband on for positive identification. Bed in low position. Call ea2 light in reach. Side rails up X 1. Adult w/ patient. 20:09 XRAY Foot LEFT 2 View In Process Unspecified. EDMS 20:09 XRAY Chest (1 view) In Process Unspecified. EDMS 20:24 Helen Goldsmith PA-C is Hospitalizing Provider. cp 20:44 Enrico Leal is Hospitalizing Provider. sb4 21:18 No provider procedures requiring assistance completed. Patient admitted, IV remains in ea2 place. Administered Medications: 19:49 Drug: Acetaminophen PO 1000 mg Route: PO; ea2 21:44 Follow up: Response: No adverse reaction ea2 20:29 Drug: vancoMYCIN IVPB 1 grams Route: IVPB; Infused Over: 2 hrs; Site: right antecubital;ea2 21:44 Follow up: IV Status: Infusion continued upon transfer ea2 Outcome: 20:25 Decision to Hospitalize by Provider. cp 21:18 Admitted to Med/surg accompanied by tech, via stretcher, Report called to Receiving ea2 nurse on fourth floor 21:18 Condition: stable 21:18 Instructed on the need for admit. 21:57 Patient left the ED. ea2 Signatures: Dispatcher [employer] EDMS Jp Reddy MD MD kdr Page, Corey, PA PA cp Garcia, Rubi rg4 Gerardo Caceres, RN RN ll1 Helen Goldsmith PA-C PAAddis sb4 Lora Blas RN RN ea2
[2022-09-27] MEDS ORDERED: VANCOMYCIN 1 GM/VIAL ONE (20:27)
[2022-09-27] MEDS ORDERED: NA CHLORIDE 0.9% 250 ML ONE (20:28)
[2022-09-27] MEDS ORDERED: CEFEPIME 1 GM/VIAL ONE ×2 (20:39→22:28)
[2022-09-27] MEDS ORDERED: NA CHLORIDE 0.9% 100 ML ONE ×2 (20:39→22:28)
--- NOTE | 2022-09-27 20:48 | P.HP ---
Certification for Inpatient Patient admitted to: Inpatient With expected LOS: >2 Midnights Patient will require the following post-hospital care: None Practitioner: I am a practitioner with admitting privileges, knowledge of patient current condition, hospital course, and medical plan of care. Services: Services provided to patient in accordance with Admission requirements found in Title 42 Section 412.3 of the Code of Federal Regulations Patient History Date of Service: 09/27/22 Reason for admission: Osteomyelitis Left Foot History of Present Illness: Patient is a 41 year old male with past medical history of insulin dependent type 2 diabetes, ESRD on HD MWF, and hypertension who presented to the emergency department with complaints of a foot wound and fever. Noted to be febrile at 101.4 upon arrival. He states that he injured hit his left lateral foot on something about 2 weeks ago, causing a wound, and it has gradually worsened. [place] has [place] 13433 white count with left shift, CRP 124, and procal 9.3. Lactate WNL. Foot xray showed "Sequelae of fifth digit proximal and distal phalanx amputation. Osseous destructive changes and lucency involving the head of the fifth metacarpal. Findings are concerning for osteomyelitis. Overlying soft tissue swelling. No air or foreign body in the soft tissue" CT showed " Destructive changes of the fifth metatarsal head underlying the lateral forefoot ulceration, with small locules of gas extending deep to the ulcer and into the fifth metatarsal distal shaft bone marrow. Findings are concerning for acute osteomyelitis. No localized fluid collections within limits of noncontrast evaluation. No findings to suggest acute osteomyelitis elsewhere." Dr. Patel was contacted and will likely take patient to OR tomorrow. He was started on vancomyin and cefepime in the ED. Patient is admitted for further management. Allergies No Known Allergies Allergy (Unverified 11/13/11 15:09) Home medications list reviewed: Yes Home Medications: Amox/Clavulanate [Augmentin 875-125 Tab*] 1 each PO BID #20 tab 06/14/16 Insulin Glargine Human [Lantus*] 27 units SQ BEDTIME #100 ml 06/14/16 Syring-Needl,Disp,Insul,0.3 ml [Insulin Syringe] 1 each MC DAILY #100 disp.syrin 06/14/16 traMADol HCL [Ultram*] 50 mg PO Q6H PRN #20 tab 06/14/16 - Past Medical/Surgical History Diabetic: No -: Type 2 Diabetes, Insulin Dependent -: Hypertension -: ESRD -: Blindness -: Left 5th toe amputation 2015 Psychosocial/ Personal History: Patient is . - Family History Family History: Reviewed- Non-Contributory - Family History Father Notes: "FELL AND BROKE HIS NECK" IS Mother Notes: DENIES ANY MEDICAL HX OF MOTHER - Social History Smoking Status: Never smoker Alcohol use: Yes CD- Drugs: No Caffeine use: Yes Place of Residence: Home Review of Systems General: Fever Integumentary: As per HPI Physical Examination - Vital Signs Temperature: 98.6 F Blood Pressure: 134/74 Pulse: 93 Respirations: 18 Pulse Ox (%): 95 - Physical Exam General: Alert, In no apparent distress HEENT: Atraumatic, EOMI, Sclerae nonicteric Neck: Supple, 2+ carotid pulse no bruit Respiratory: Clear to auscultation bilaterally, Normal air movement Cardiovascular: Regular rate/rhythm, Normal S1 S2 Gastrointestinal: Normal bowel sounds, No tenderness Musculoskeletal: No tenderness Integumentary: Skin breakdown, Tenderness/swelling, Erythema, Warmth, Other (1.5 cm circular wound lateral left foot with purulent drainage) Neurological: Normal speech, Normal affect - Studies Laboratory Data (last 24 hrs) 09/27/22 19:26: PT 12.0, INR 1.09 09/27/22 19:26: WBC 18.90 H, Hgb 9.8 L, Hct 29.0 L, Plt Count 295 09/27/22 19:26: Magnesium 2.2 Assessment and Plan - Problems (Diagnosis) (1) Osteomyelitis of left foot Current Visit: Yes Status: Acute Qualifiers: Osteomyelitis type: unspecified type Qualified Code(s): M86.9 - Osteomyelitis, unspecified (2) Sepsis Current Visit: Yes Status: Acute Qualifiers: Sepsis type: sepsis due to unspecified organism Sepsis acute organ dysfunction status: without acute organ dysfunction Qualified Code(s): A41.9 - Sepsis, unspecified organism (3) Hypertension Current Visit: Yes Status: Chronic Qualifiers: Hypertension type: primary hypertension Qualified Code(s): I10 - Essential (primary) hypertension (4) Diabetes mellitus Current Visit: Yes Status: Chronic Qualifiers: Diabetes mellitus type: type 2 Diabetes mellitus complication status: with hyperglycemia (5) Anemia Current Visit: Yes Status: Chronic Qualifiers: Anemia type: due to chronic kidney disease Chronic kidney disease stage: on chronic dialysis Qualified Code(s): N18.6 - End stage renal disease; D63.1 - Anemia in chronic kidney disease; Z99.2 - Dependence on renal dialysis - Plan Patient is admitted for further management of suspected left foot osteomyelitis. CT foot suggestive of osteomyelitis. Meeting sepsis criteria with source, fever of 101.4, WBC 18. Lactate WNL. BP stable. Continue IV cefepime and vancomycin. Wound culture & blood cultures obtained. NPO at midnight. Dr. Patel likely to take patient to OR tomorrow. Nephrology, , consulted for hemodialysis. Last completed Wednesday. Strict blood sugar control. Check A1c. Patient is not complaining of any pain at this time. Monitor and replete electrolytes per protocol. Reconcile and continue home medications. VTE prophylaxis. Full code. Discharge Plan: Home Plan to discharge in: Greater than 2 days - Advance Directives Does patient have a Living Will: No Does patient have a Durable POA for Healthcare: No - Code Status/Comfort Care Code Status Assessed: Yes Code Status: Full Code Physician Review: Patient Assessed, Agree with Above Assessment and Plan Critical Care: No Time Spent Managing Pts Care (In Minutes): 50
[2022-09-27 21:08] LABS: Blood Morphology Comment NOTED (NOT SEEN); Platelet Estimate ADEQ; Polychromasia SLIGHT
--- NOTE | 2022-09-27 21:30 | RAD REPORT ---
EXAM DESCRIPTION: RADChest Single View09/27/2022 8:08 pm CLINICAL HISTORY: dialysis COMPARISON: Chest Single View dated 06/13/2016Chest Single View dated 06/13/2016; Foot Left 2 View d ated 09/27/2022 TECHNIQUE: Portable AP view of the chest. FINDINGS: The lungs are clear. No pneumothorax or effusion. Mild cardiomegaly. The mediastinal conto urs are unremarkable. IMPRESSION: No acute pulmonary process. Mild cardiomegaly.
--- NOTE | 2022-09-27 21:33 | RAD REPORT ---
EXAM DESCRIPTION: RAD - Foot Left 2 View - 09/27/2022 8:07 pm CLINICAL HISTORY: open wound COMPARISON: Foot Left 3 View dated 06/10/2016 TECHNIQUE: Left foot, 3 views. FINDINGS: Sequelae of fifth digit proximal and distal phalanx amputation. Osseous destructive change s and lucency involving the head of the fifth metacarpal. Findings are concerning for osteomyelitis. Overlying soft tissue swelling. No air or foreign body in the soft tissues. IMPRESSION: As above.
--- NOTE | 2022-09-27 22:04 | RAD REPORT ---
EXAM DESCRIPTION: CT - Foot Left Wo Con - 09/27/2022 8:49 pm CLINICAL HISTORY: Left foot wound Osteomyelitis evaluation COMPARISON: Left foot radiographs of the same day. Radiograph and MRI left foot 06/10/2016. TECHNIQUE: Noncontrast axial CT images of the left foot. Multiplanar reformats were generated and re viewed. All CT scans are performed using dose optimization technique as appropriate and may include automated exposure control or mA/KV adjustment according to patient size. FINDINGS: Sequelae of distal fifth digit amputation at the level of the metacarpophalangeal articula tion. Skin ulceration with underlying mild soft tissue gas tracking proximally, along the lateral mar gin of the foot at the level of the fifth metatarsal head, slightly plantar aspect. Osseous destructive changes, with osseous irregularity, sclerosis, and periosteal reaction involving the head of the fifth metatarsal. Small locules of gas extending to the fifth metatarsal distal shaft bone marrow. Adjacent soft tissue thickening. No evidence of localized fluid collections within limits of noncontrast evaluation. Other osseous structures are preserved. Dystrophic calcifications along the lateral aspect of the tib iotalar articulation cartilage. Extensive vascular medial calcifications. Joint alignment is maintain ed. Mild scattered degenerative changes of the hindfoot and forefoot, without erosions. Mild subcutan eous soft tissue swelling particularly along the dorsum of the foot. IMPRESSION: Destructive changes of the fifth metatarsal head underlying the lateral forefoot ulcerat ion, with small locules of gas extending deep to the ulcer and into the fifth metatarsal distal shaft bone marrow. Findings are concerning for acute osteomyelitis. No localized fluid collections within limits of noncontrast evaluation. No findings to suggest acute osteomyelitis elsewhere.
[2022-09-27] MEDS ORDERED: HYDROCODONE/APAP 7.5/325 MG TAB PO PRN (22:09)
[2022-09-27] MEDS ORDERED: VANCOMYCIN 1 GM in NA CHLORIDE 0.9% 250 ML IVPB SCH (22:09)
[2022-09-27] MEDS ORDERED: ONDANSETRON 4 MG/2 ML VIAL IV PRN (22:09)
[2022-09-27 22:55] LABS: Potassium 3.5 mEq/L (3.5-5.1)
[2022-09-28] MEDS: ACETAMINOPHEN 500 MG TAB PO PRN ×3 (02:38→20:52)
[2022-09-28 03:47] LABS: Absolute Lymphocytes (CBC) 0.5 K/uL (0.7-4.9); Hematocrit 32.4 % (39.6-49.0); Lymphocytes % 2.4 % (15.3-44.8); MCV 97.2 fL (80-100); MPV 7.6 fL (7.6-11.3); RBC Red Blood Cell Count 3.33 M/uL (4.33-5.43)
[2022-09-28 04:12] LABS: Magnesium 2.3 mg/dL (1.6-2.4); Phosphorus 6.1 mg/dL (2.5-4.9); Potassium 4.1 mEq/L (3.5-5.1); Thyroid Stimulating Hormone 0.675 uIU/mL (0.358-3.740)
[2022-09-28] MEDS ORDERED: IBUPROFEN 400 MG TAB PO ONE (04:12)
[2022-09-28] MEDS: INSULIN -REGULAR HUMAN 50 UNIT/0.5 ML ML SQ SCH ×5 (04:20→23:24)
[2022-09-28] MEDS ORDERED: VANCOMYCIN 1.5 GM in NA CHLORIDE 0.9% 500 ML IVPB ONE (08:00)
--- NOTE | 2022-09-28 08:33 | EKG ---
Test Date: 2022-09-27 Test Time: 19:42:47 Day Care Assistant: BORIS MEASUREMENT RESULTS: Intervals: Rate: 93 UT: 152 QRSD: 88 QT: 362 QTc: 450 [place]: P: 45 UT: 152 QRS: 72 T: -12 INTERPRETIVE STATEMENTS: Normal sinus rhythm Normal ECG Compared to ECG 03/28/2020 23:23:30 No significant changes Electronically Signed On 09-28-22 08:32:10 CDT by Leighton Wang
[2022-09-28] MEDS ORDERED: BUPIVACAINE 0.25% PF 10 ML VIAL ONE (10:10)
[2022-09-28] MEDS ORDERED: NA CHLORIDE 0.9% 500 ML ONE (10:36)
[2022-09-28] MEDS ORDERED: FENTANYL CITR 100 MCG/2 ML ONE (10:50)
[2022-09-28] MEDS ORDERED: propofoL 200 MG/20 ML VIAL IV ONE (10:50)
[2022-09-28] MEDS ORDERED: MIDAZOLAM HCL 2 MG/2 ML INJ ONE (10:50)
[2022-09-28] MEDS ORDERED: LIDOCAINE 2% MPF 5 ML VIAL ONE (10:52)
[2022-09-28] MEDS ORDERED: ONDANSETRON 4 MG/2 ML VIAL ONE (10:52)
--- NOTE | 2022-09-28 11:13 | P.CNS ---
Date of Consult: 09/28/22 Reason for Consult: Osteomyelitis Left Foot Chief Complaint: Osteomyelitis Left Foot History of Present Illness: Patient is a 41 yo male with a past medical history of Diabetes Mellitus type II, ESRD on hemodialysis, and hypertension. Patient presented to the ED with complaints of left foot wound and fever; which the pt stated the wound on the left foot had gradually been getting worse over the last 2 weeks. Pt was found to have temp of 101.[address] left foot showed "Destructive changes of the fifth metatarsal head underlying the lateral forefoot ulceration, with small locules of gas extending deep to the ulcer and into the fifth metatarsal distal shaft bone marrow. Findings are concerning for acute osteomyelitis." Surgery was contacted for debridement. Patient is laying in bed, breathing comfortably on room air, No complaints at this time. Debridement scheduled for today (09/28) Allergies No Known Allergies Allergy (Unverified 11/13/11 15:09) Home Medications: Carvedilol [Coreg] 25 mg PO BID 09/28/22 Clopidogrel Bisulfate [Plavix] 75 mg PO DAILY 09/28/22 Insulin Aspart Prot/Insuln Asp [Novolog Mix 70-30 Flexpen] 15 units SQ SEECOM 09/28/22 - Past Medical/Surgical History Diabetic: Yes -: Type 2 Diabetes, Insulin Dependent -: Hypertension -: ESRD -: Blindness -: Left 5th toe amputation 2015 Psychosocial/ Personal History: Patient is . - Family History Father Notes: "FELL AND BROKE HIS NECK" IS Mother Notes: DENIES ANY MEDICAL HX OF MOTHER - Social History Smoking Status: Current every day smoker Alcohol use: Yes CD- Drugs: No Caffeine use: Yes Place of Residence: Home Review of Systems 10-point ROS is otherwise unremarkable Integumentary: As per HPI Physical Examination Temp Pulse Resp BP Pulse Ox 97.5 F 90 15 126/72 99 09/28/22 08:00 09/28/22 08:00 09/28/22 08:00 09/28/22 08:00 09/28/22 08:00 General: Alert, In no apparent distress, Oriented x3 HEENT: Atraumatic, Normocephalic Neck: Supple, JVD not distended Respiratory: Clear to auscultation bilaterally, Normal air movement Cardiovascular: No edema, Normal pulses, Normal S1 S2 Gastrointestinal: Normal bowel sounds, Soft and benign, No tenderness Musculoskeletal: No clubbing, No swelling Integumentary: No rashes, No breakdown, Other (Osteomyelitis Left Foot, plantar; Left 5th toe amputation; left forearm fistula) Neurological: Normal speech, Normal tone, Normal affect, Abnormal sensation (Feet, bilateral- neuropathy) Laboratory Data - reviewed Microbiology Data - reviewed Imagings Data: - reviewed Medication List Reviewed: yes Conclusions/Impression: Problem List - Osteomyelitis of left foot - Diabetes Mellitus Type II - ESRD on Hemodialysis - Hypertension - Diabetic Neuropathy - Diabetic Ulcer of Foot - Leukocytosis - Sepsis Osteomyelitis / Diabetic Ulcer of Foot / Sepsis - 09/27 CT left foot: "Destructive changes of the fifth metatarsal head underlying the lateral forefoot ulceration, with small locules of gas extending deep to the ulcer and into the fifth metatarsal distal shaft bone marrow. Findings are concerning for acute osteomyelitis." - Leukocytosis (WBC 20.9) - Surgical debridement planned for today - Currently on cefepime IV and vancomycin IV (started 09/28) - 09/27 Blood Cultures: Pending - 09/27 Left Foot Wound Culture: Pending Recommendations - Continue IV Cefepime and Vancomycin for now (started 09/28); awaiting culture results - Blood and wound cultures pending - Blood glucose control - Debridement scheduled for today (09/28) - ID will follow up and adjust antibiotics as needed Case discussed with Stoney Hays
--- NOTE | 2022-09-28 11:59 | P.OP ---
Preoperative diagnosis: LEFT Foot infection / Diabetic Ulcer Postoperative diagnosis: LEFT Foot infection / Diabetic Ulcer Primary procedure: Debridement of LEFT Foot infection / Diabetic Ulcer Anesthesia: GETA + Local Estimated blood loss: <5cc Specimen: debridement tissue Findings: LEFT Foot infection / Diabetic Ulcer Complications: None Transferred to: Recovery Room Condition: Good
--- NOTE | 2022-09-28 14:14 | OP ---
Date of Procedure: 09/28/2022 Surgeon: Biju Patel MD, Preoperative Diagnosis: Left foot infection/diabetic ulcer. Postoperative Diagnosis: Left foot infection/diabetic ulcer. Procedure Performed: Debridement of left foot infection/diabetic ulcer. Anesthesia: General endotracheal plus local with 0.25% Marcaine. Estimated Blood Loss: Less than 5 cc. Specimen: Tissue. Findings: Left foot infection/diabetic ulcer. Complications: None. Disposition: The patient was transferred to the recovery room in good condition. Procedure In Detail: After informed consent was obtained, the patient was brought to the operating r oom, prepped and draped in the usual sterile fashion after adequate anesthesia was achieved. I made a linear incision circumferentially around an obvious diabetic ulcer along the fifth metatarsal on th e left foot down to subcutaneous tissues. I then dissected down to the plantar fascia, which was exp osed and necrotic. I debrided all nonviable tissue using combination of both electrocautery and rusty p dissection, removed all the nonviable tissue, sent off for pathologic examination. The area was th en irrigated copiously. Minimal hemostasis was required with electrocautery. The wound was then pac ked with 1 inch packing with Vashe-soaked gauze and a sterile dressing placed over top. The patient tolerated the procedure well without evidence of complication and transferred to PACU in good condition. All counts were correct at the end of the case. RHONA/SHAWNA Voice ID: [id number] Report ID: [id number]
--- NOTE | 2022-09-28 15:11 | P.PN ---
Subjective Date of Service: 09/28/22 Chief Complaint: Osteomyelitis Left Foot Patient has no new complaint. Status post wound debridement today. Physical Examination - Vital Signs Temperature: 97 F Blood Pressure: 112/67 Pulse: 71 Respirations: 16 Pulse Ox (%): 95 - Studies Laboratory Data (last 24 hrs) 09/27/22 19:26: Sodium 132 L, Potassium 3.5, BUN 80 H, Creatinine 11.90 H, Glucose 216 H 09/27/22 19:26: PT 12.0, INR 1.09 09/27/22 19:26: WBC 18.90 H, Hgb 9.8 L, Hct 29.0 L, Plt Count 295 09/27/22 19:26: Magnesium 2.2 Microbiology Data (last 24 hrs): 09/27/22 19:26 Wound - Left Foot Gram Stain - Final Assessment And Plan - Current Problems (Diagnosis) (1) Osteomyelitis of left foot Current Visit: Yes Status: Acute Qualifiers: Osteomyelitis type: unspecified type Qualified Code(s): M86.9 - Osteomyelitis, unspecified (2) Sepsis Current Visit: Yes Status: Acute Qualifiers: Sepsis type: sepsis due to unspecified organism Sepsis acute organ dysfunction status: without acute organ dysfunction Qualified Code(s): A41.9 - Sepsis, unspecified organism (3) Diabetes mellitus Current Visit: Yes Status: Chronic Qualifiers: Diabetes mellitus type: type 2 Diabetes mellitus complication status: with hyperglycemia (4) Diabetic ulcer of foot associated with diabetes mellitus due to underlying condition, limited to breakdown of skin Onset Date: 06/11/16 Current Visit: No Status: Acute - Plan Physical Exam General: Alert, In no apparent distress, obese Respiratory: Clear to auscultation bilaterally, Normal air movement Cardiovascular: Regular rate/rhythm, Normal S1 S2 Gastrointestinal: Normal bowel sounds, No tenderness Musculoskeletal: No tenderness Integumentary: Skin breakdown, Tenderness/swelling left foot, Erythema, Warmth, 1.5 cm circular wound lateral plantar aspect of left foot with purulent drainage. Neurological: Normal speech, Normal affect Plan: Osteomyelitis with sepsis. General surgery input appreciated. Status post wound debridement today Continue broad-spectrum antibiotics-vancomycin and cefepime. Awaiting deep tissue wound culture. Follow blood cultures. Infectious disease consulted to assist with management. Pain management as needed. Nephrology is following and managing ESRD with hemodialysis Blood pressure is low normal today. Hold home antihypertensives for now. Monitor CBC to follow leukocytosis.
--- NOTE | 2022-09-28 15:31 | P.PN ---
Brief Renal note (full consult to follow) Attempted to see pt twice earlier this AM on rounds but pt was out of room for surgery/debridement of DFU. Chart reviewed, HD orders placed to continue dialysis per OP MWF schedule, pt dialyzes at [facility] and has been seen there last week in stable condition but had not unfortunately reported the development of a DFU. Leukocytosis noted, f/u wound cultures, dose empiric Abx for reduced CrCl. BP soft, f/u post HD BP. Nasir Mandujano MD, VICKIE
[2022-09-28] MEDS ORDERED: ALBUMIN HUMAN 25% 100 ML IV ONE (15:32)
[2022-09-28] MEDS ORDERED: VANCOMYCIN 1 GM in NA CHLORIDE 0.9% 250 ML IVPB SCH (20:00)
[2022-09-28] MEDS: CEFEPIME 1 GM in NA CHLORIDE 0.9% 100 ML IV SCH (20:53)
--- NOTE | 2022-09-28 21:36 | P.PN ---
Date of Service: 09/29/22 Subjective: Feeling good today Pain decreased this morning no new symptoms ROS: 10 point ROS as noted above, otherwise negative Physical Exam: GEN: Alert, oriented, NAD HEENT: Normal conjunctiva, sclera anicteric CV: Regular rate and rhythm, no edema Pulm: Nonlabored respirations on room air ABD: Soft, nontender, nondistended Integumentary: L foot with surgical dressing in place, c/d/i Neuro: Normal speech, normal affect vitals reviewed Problem List: Osteomyelitis of left foot; s/p wound debridement 09/28 Acute Sepsis without shock secondary to cellulitis/osteomyelitis IDDM2 Diabetic ulcer of foot associated with diabetes mellitus due to underlying condition, limited to breakdown of skin Osteomyelitis of left foot Acute Sepsis without shock 09/27 CT left foot: "Destructive changes of the fifth metatarsal head underlying the lateral forefoot ulceration, with small locules of gas extending deep to the ulcer and into the fifth metatarsal distal shaft bone marrow. Findings are concerning for acute osteomyelitis." General surgery consulted - Debridement of left foot infection/diabetic ulcer performed 09/28 Continue broad-spectrum antibiotics-vancomycin and cefepime wound culture - GPC & GNR prelim growing f/u would culture - Sections reveal gangrenous necrosis of skin and subcutaneous tissue with areas showing fibrosis fat necrosis and vascular congestion. Dysplasia and malignancy are not identified blood cultures pending Infectious disease consulted continue pain medication as needed Nephrology consulted - managing ESRD with hemodialysis Blood pressure is low normal 09/28 Hold home antihypertensives for now Monitor CBC to follow leukocytosis. VTE: Heparin sq Code: Full Dispo: Home 24-48 hours waiting for cultures for abx choice
[2022-09-28] MEDS ORDERED: LOPERAMIDE HCL 2 MG CAPSULE PO STA (22:39)
[2022-09-28 23:14] VITALS: O2SAT 96
[2022-09-29 03:55] LABS: Hematocrit 28.1 % (39.6-49.0); Lymphocytes % 9.1 % (15.3-44.8); MCV 97.3 fL (80-100); MPV 7.4 fL (7.6-11.3); RBC Red Blood Cell Count 2.88 M/uL (4.33-5.43)
[2022-09-29 04:08] LABS: Potassium 3.5 mEq/L (3.5-5.1)
[2022-09-29] MEDS: INSULIN -REGULAR HUMAN 50 UNIT/0.5 ML ML SQ SCH ×4 (07:30→21:16)
[2022-09-29] MEDS: CLOPIDOGREL 75 MG TABLET PO SCH (08:46)
--- NOTE | 2022-09-29 09:45 | P.PN ---
Subjective Date of Service: 09/29/22 Chief Complaint: Osteomyelitis Left Foot Subjective: No new changes, No C/O voiced, Improving Patient sitting up in bed. Breathing comfortably on room air. Reports feeling better today. s/p debridement yesterday. at bedside No complaints reported at this time. Physical Examination - Vital Signs Temperature: 98.9 F Blood Pressure: 155/61 Pulse: 77 Respirations: 17 Pulse Ox (%): 96 - Physical Exam General: Alert, In no apparent distress, Oriented x3 HEENT: Atraumatic, Normocephalic Neck: Supple, JVD not distended Respiratory: Clear to auscultation bilaterally, Normal air movement Cardiovascular: No edema, Normal pulses, Normal S1 S2 Gastrointestinal: Normal bowel sounds, Soft and benign, Non-distended Musculoskeletal: No clubbing, No swelling, Other (left fifth toe amputation) Integumentary: No rashes, No breakdown, Diabetic ulcer (left foot, lateral plantar) Neurological: Normal speech, Normal tone, Normal affect - Studies Laboratory Data - reviewed Microbiology Data (last 24 hrs): - Reviewed Imagings Data: - reviewed Medications List Reviewed: Yes Assessment And Plan - Plan Problem List - Osteomyelitis of left foot - Diabetes Mellitus Type II - ESRD on Hemodialysis - Hypertension - Diabetic Neuropathy - Diabetic Ulcer of Foot - Leukocytosis - Sepsis Osteomyelitis / Diabetic Ulcer of Foot / Sepsis - 09/27 CT left foot: "Destructive changes of the fifth metatarsal head underlying the lateral forefoot ulceration, with small locules of gas extending deep to the ulcer and into the fifth metatarsal distal shaft bone marrow. Findings are concerning for acute osteomyelitis." - Debridement of left foot infection/diabetic ulcer performed 09/28 - Leukocytosis improving; afebrile - Currently on IV cefepime and IV vancomycin (started 09/28) - 09/27 Blood Cultures: no growth to date - 09/27 Left Foot Wound Culture: Gram stain: gram positive cocci in pairs and chains & gram negative rods - Deep tissue wound cultures left foot: pending Recommendations - Continue IV Cefepime and Vancomycin for now (started 09/28); will need to be on antibiotic for at least 6 week duration - Awaiting final culture and sensitivity results - ID will follow up and adjust antibiotics as needed Case discussed with Stoney Hays
[2022-09-29] MEDS ORDERED: INFLUENZA VACCINE (for 6+ mo) 0.5 ML DOSE IMVAC ONE (12:00)
[2022-09-29] MEDS: COLLAGENASE 30 GM OINTMENT TOP SCH (15:27)
[2022-09-29] MEDS ORDERED: EPOETIN ALFA-EPBX 10,000 UNIT/ML VIAL SQ ONE (17:00)
[2022-09-29] MEDS ORDERED: DRISDOL (VITAMIN D=ERGOCALCIFEROL) 50000 UNIT CAP PO SCH (17:00)
--- NOTE | 2022-09-29 20:29 | P.CNS ---
Date of Consult: 09/29/22 Reason for Consult: ESRD Requesting Physician: Donald Restrepo Chief Complaint: Osteomyelitis Left Foot History of Present Illness: Patient is a 41 year old male with past medical history of insulin dependent type 2 diabetes, ESRD on HD MWF, and hypertension who presented to the emergency department with complaints of a foot wound and fever. Noted to be febrile at 101.4 upon arrival. He states that he injured hit his left lateral foot on something about 2 weeks ago, causing a wound, and it has gradually worsened. [place] 11754 white count with left shift, CRP 124, and procal 9.3. Lactate WNL. Foot xray showed "Sequelae of fifth digit proximal and distal phalanx amputation. Osseous destructive changes and lucency involving the head of the fifth metacarpal. Findings are concerning for osteomyelitis. Overlying soft tissue swelling. No air or foreign body in the soft tissue" CT showed " Destructive changes of the fifth metatarsal head underlying the lateral forefoot ulceration, with small locules of gas extending deep to the ulcer and into the fifth metatarsal distal shaft bone marrow. Findings are concerning for acute osteomyelitis. No localized fluid collections within limits of noncontrast evaluation. No findings to suggest acute osteomyelitis elsewhere." Dr. Patel was contacted and will likely take patient to OR tomorrow. He was started on vancomyin and cefepime in the ED. Patient is admitted for further management. 19:15 This 41 yrs old Male presents to ER via Ambulatory with complaints of Wound cp Check. 19:15 The patient presents with swelling, tenderness, open wound. The complaints affect the cp plantar surface of left foot. 19:15 Onset: The symptoms/episode began/occurred at an unknown time. and became worse over cp past several days. Associated signs and symptoms: Pertinent positives: fever, warmth, drainage from wound. Patient reports history of left fifth toe amputation by DR Patel in the past. Allergies No Known Allergies Allergy (Unverified 11/13/11 15:09) Home medications list reviewed: Yes Home Medications: Carvedilol [Coreg] 25 mg PO BID 09/28/22 Clopidogrel Bisulfate [Plavix] 75 mg PO DAILY 09/28/22 Insulin Aspart Prot/Insuln Asp [Novolog Mix 70-30 Flexpen] 15 units SQ SEECOM 09/28/22 - Past Medical/Surgical History Diabetic: Yes -: Type 2 Diabetes, Insulin Dependent -: Hypertension -: ESRD (Dr. Aceves) -: Blindness -: Left 5th toe amputation 2015 Psychosocial/ Personal History: Patient is . - Family History Father Notes: "FELL AND BROKE HIS NECK" IS Mother Notes: DENIES ANY MEDICAL HX OF MOTHER - Social History Smoking Status: Current every day smoker Alcohol use: Yes CD- Drugs: No Caffeine use: Yes Place of Residence: Home Review of Systems 10-point ROS is otherwise unremarkable Musculoskeletal: Foot Pain Physical Examination Temp Pulse Resp BP Pulse Ox 97.9 F 79 17 105/45 L 95 09/29/22 16:00 09/29/22 16:00 09/29/22 16:00 09/29/22 16:00 09/29/22 16:00 General: In no apparent distress, Oriented x3, Cooperative HEENT: Atraumatic Neck: Supple Respiratory: Clear to auscultation bilaterally Cardiovascular: Regular rate/rhythm, Edema Gastrointestinal: Soft and benign, Non-distended Musculoskeletal: No clubbing, No contractures Integumentary: No rashes, No cyanosis, Diabetic ulcer Neurological: Normal speech Blood work reviewed in the chart. Imagings Data: EXAM DESCRIPTION: RADChest Single View09/27/2022 8:08 pm CLINICAL HISTORY: dialysis COMPARISON: Chest Single View dated 06/13/2016Chest Single View dated 016; Foot Left 2 View dated 09/27/2022 TECHNIQUE: Portable AP view of the chest. FINDINGS: The lungs are clear. No pneumothorax or effusion. Mild cardiomegaly. The mediastinal contours are unremarkable. IMPRESSION: No acute pulmonary process. Mild cardiomegaly. Conclusions/Impression: ESRD on HD -HD TIW HTN with CKD/ CHF -Restart Coreg as indicated Diastolic CHF, chronic -Low sodium diet -Daily weight -HD with UF DM II with CKD & Polyneuropathy DM II with Left foot ulcer -RISS -Continue Abx Anemia in CKD -Retacrit X1 CKD MBD -Start Ergo Thank you kindly for the consultation
[2022-09-29] MEDS: DOCUSATE NA 100 MG CAP PO SCH (21:15)
[2022-09-29] MEDS: CEFEPIME 1 GM in NA CHLORIDE 0.9% 100 ML IV SCH (21:15)
[2022-09-30 07:14] LABS: Absolute Lymphocytes (CBC) 1.1 K/uL (0.7-4.9); Hematocrit 27.6 % (39.6-49.0); Lymphocytes % 10.2 % (15.3-44.8); MCV 97.2 fL (80-100); MPV 7.9 fL (7.6-11.3); RBC Red Blood Cell Count 2.84 M/uL (4.33-5.43)
[2022-09-30] MEDS: INSULIN -REGULAR HUMAN 50 UNIT/0.5 ML ML SQ SCH ×4 (07:30→20:27)
--- NOTE | 2022-09-30 07:36 | P.PN ---
Date of Service: 09/30/22 Subjective: Feeling good today no chest pain or SOB today no new problems ROS: 10 point ROS as noted above, otherwise negative Physical Exam: GEN: Alert, oriented, NAD HEENT: Normal conjunctiva, sclera anicteric CV: Regular rate and rhythm, no edema Pulm: Nonlabored respirations on room air ABD: Soft, nontender, nondistended Integumentary: L foot with surgical dressing in place, c/d/i Neuro: Normal speech, normal affect vitals reviewed Problem List: Osteomyelitis of left foot; s/p wound debridement 09/28; Pseudomonas Aeruginosa and Serratia Marcescens bacterium Acute Sepsis without shock secondary to cellulitis/osteomyelitis ESRD on Hemodialysis DM2 with neuropathy Diabetic ulcer of foot associated with diabetes mellitus due to underlying condition, limited to breakdown of skin Hypertension Osteomyelitis of left foot Acute Sepsis without shock Diabetic ulcer 09/27 CT left foot: "Destructive changes of the fifth metatarsal head underlying the lateral forefoot ulceration, with small locules of gas extending deep to the ulcer and into the fifth metatarsal distal shaft bone marrow. Findings are concerning for acute osteomyelitis." General surgery consulted - Debridement of left foot infection/diabetic ulcer performed 09/28 Continue broad-spectrum antibiotics-vancomycin and cefepime Wound culture - Resistant Pseudomonas Aeruginosa and Serratia Marcescens found growing, +GNR f/u would culture - Sections reveal gangrenous necrosis of skin and subcutaneous tissue with areas showing fibrosis fat necrosis and vascular congestion. Dysplasia and malignancy are not identified blood cultures pending Infectious disease consulted recommends IV Gentamycin with dialysis and oral levaquin continue pain medication as needed Nephrology consulted - managing ESRD with hemodialysis Blood pressure is low normal 09/28 Restart coreg 09/30 Monitor CBC to follow leukocytosis. VTE: Heparin sq Code: Full Dispo: Home 24-48 hours waiting dialysis center to confirm availability of abx in stock
[2022-09-30 07:44] LABS: Potassium 3.9 mEq/L (3.5-5.1)
[2022-09-30] MEDS: CLOPIDOGREL 75 MG TABLET PO SCH (08:40)
[2022-09-30] MEDS: MULTIVITAMINS,THERAPEUT 1 TAB PO SCH (08:40)
[2022-09-30] MEDS: DOCUSATE NA 100 MG CAP PO SCH ×2 (08:41→20:27)
[2022-09-30] MEDS: COLLAGENASE 30 GM OINTMENT TOP SCH (09:00)
--- NOTE | 2022-09-30 11:20 | P.PN ---
Date of Service: 09/30/22 Subjective Date of Service: 09/30/22 Chief Complaint: Osteomyelitis Left Foot Subjective: No new changes, No C/O voiced, Improving Patient resting comfortably in bed. No new complaints at this time. s/p debridement 09/28; Wound improving. Denies any nausea, vomiting or diarrhea. Denies any abdominal or chest pain. Denies any rashes. Physical Examination - Vital Signs Temp Pulse Resp BP Pulse Ox 98.3 F 79 16 189/64 H 96 09/30/22 08:00 09/30/22 08:00 09/30/22 08:00 09/30/22 08:00 09/30/22 08:00 - Physical Exam General: Alert, In no apparent distress, Oriented x3 HEENT: Atraumatic, Normocephalic Neck: Supple, JVD not distended Respiratory: Clear to auscultation bilaterally, Normal air movement Cardiovascular: No edema, Normal pulses, Normal S1 S2 Gastrointestinal: Normal bowel sounds, Soft and benign, Non-distended Musculoskeletal: No clubbing, No swelling, Other (left fifth toe amputation) Integumentary: No rashes, No breakdown, Diabetic ulcer (left foot, lateral plantar) Neurological: Normal speech, Normal tone, Normal affect - Studies Laboratory Data - reviewed Microbiology Data (last 24 hrs): - Reviewed Imagings Data: - reviewed Medications List Reviewed: Yes Assessment And Plan Problem List - Osteomyelitis of left foot - Diabetes Mellitus Type II - ESRD on Hemodialysis - Hypertension - Diabetic Neuropathy - Diabetic Ulcer of Foot - Leukocytosis - Sepsis Osteomyelitis / Diabetic Ulcer of Foot / Sepsis - 09/27 CT left foot: "Destructive changes of the fifth metatarsal head underlying the lateral forefoot ulceration, with small locules of gas extending deep to the ulcer and into the fifth metatarsal distal shaft bone marrow. Findings are concerning for acute osteomyelitis." - Debridement of left foot infection/diabetic ulcer performed 09/28 - Leukocytosis improving; afebrile - Currently on IV cefepime and IV vancomycin (started 09/28) - 09/27 Blood Cultures: no growth to date - 09/27 Left Foot Wound Culture: pseudomonas aeruginosa & serratia marcescens Recommendations -- Plan for patient to be discharged on PO Levaquin and IV Gentamycin for 6 weeks duration. Discussed with nephrology for renal dosing. - Levaquin PO 500mg Q48H - Gentamycin IV 0.8mg/kg with dialysis ID will continue to follow and monitor closely Case discussed with Stoney Hays
--- NOTE | 2022-09-30 11:34 | P.PN ---
Renal note (S) Pt denies any active complaints such as foot pain, dyspnea, N/V/D. Abx plan discussed with ID/Dr. Curry (O) Vitals reviewed in the EMR General: In no apparent distress, Oriented x3, Cooperative HEENT: Atraumatic, visual impairment Neck: Supple Respiratory: Clear to auscultation bilaterally Cardiovascular: Regular rate/rhythm, no sig Edema Gastrointestinal: Soft and benign, Non-distended Musculoskeletal: No clubbing, No contractures. lt UE AVG Integumentary: Lt foot plantar DFU, see description elsewhere Neurological: Normal speech, awake, alert, oriented Blood work reviewed in the chart. Conclusions/Impression: ESRD 2nd to DM/HTN -Cont iHD MWF, stable metab profile HTN with CKD -Will restart Coreg, will f/u post HD BP DM II with CKD & Polyneuropathy DM II with Left foot ulcer and acute osteomyelitis based on CT foot findings -plan for PO Levaquin and IV Gentamicin given at his dialysis unit discussed with ID, both will require renal dosing and close monitoring. Anemia in CKD -Monitor counts Nasir Mandujano MD, VICKIE
--- NOTE | 2022-09-30 12:01 | P.DS ---
Admission Date: 09/27/22 Discharge Date: 10/01/22 Disposition: ROUTINE DISCHARGE Discharge Condition: GOOD Reason for Admission: Osteomyelitis Left Foot Consultations: General Surgery - Dr. Patel Nephrology - Dr. Curiel Brief History of Present Illness: 41yo M, PMH: insulin dependent type 2 diabetes, ESRD on HD MWF, and hypertension Patient presented to the emergency department with complaints of a foot wound and fever. Noted to be febrile at 101.4 upon arrival. He states that he injured hit his left lateral foot on something about 2 weeks ago, causing a wound, and it has gradually worsened. [place] 58264 white count with left shift, CRP 124, and procal 9.3. Lactate WNL. Foot xray showed "Sequelae of fifth digit proximal and distal phalanx amputation. Osseous destructive changes and lucency involving the head of the fifth metacarpal. Findings are concerning for osteomyelitis. Overlying soft tissue swelling. No air or foreign body in the soft tissue" CT showed " Destructive changes of the fifth metatarsal head underlying the lateral forefoot ulceration, with small locules of gas extending deep to the ulcer and into the fifth metatarsal distal shaft bone marrow. Findings are concerning for acute osteomyelitis. No localized fluid collections within limits of noncontrast evaluation. No findings to suggest acute osteomyelitis elsewhere." Dr. Patel was contacted and will likely take patient to OR tomorrow. He was started on vancomyin and cefepime in the ED. Hospital Course: Problem List: Osteomyelitis of left foot; s/p wound debridement 09/28; Pseudomonas Aeruginosa and Serratia Marcescens bacterium Acute Sepsis without shock secondary to cellulitis/osteomyelitis ESRD on Hemodialysis DM2 with neuropathy Diabetic ulcer of foot associated with diabetes mellitus due to underlying condition, limited to breakdown of skin Hypertension Patient was found to have infection of his foot with involvement to the bone ( osteomyelitis). He underwent debridement by Dr. Patel. Wound cultures grew pseudomonas and Serratia. ID was consulted and recommended 6 weeks of IV gentamicin with dialysis (0.8mg/kg) and levaquin 500mg PO every 48hrs ideally There was difficulty obtaining IV gent at the dialysis center. This was discussed with nephrology and ID, who were in agreement to only do oral levaquin for now, as the bacteria are sensitive to it. With close monitoring in the office and can start IV gentamicin with dialysis if needed. Patient was doing well, remained afebrile, and was deemed stable for discharge home. Continue daily dressing changes with Santyl, Vashe damp to dry daily, wrap with kerlix, LEXII, elevate per Dr. Patel's instructions. Follow up with Dr. Patel in ~1 week. Continue dialysis as scheduled. Physical Exam: GEN: Alert, oriented, NAD HEENT: Normal conjunctiva, sclera anicteric CV: Regular rate and rhythm, no edema Pulm: Nonlabored respirations on room air ABD: Soft, nontender, nondistended Integumentary: L foot with surgical dressing in place, c/d/i Neuro: Normal speech, normal affect Vital Signs/Physical Exam: Temp Pulse Resp BP Pulse Ox 98.3 F 79 16 189/64 H 96 09/30/22 08:00 09/30/22 08:00 09/30/22 08:00 09/30/22 08:00 09/30/22 08:00 Laboratory Data at Discharge: WBC 11.10 thou/uL (4.3-10.9) H 09/30/22 06:15 Hgb 9.4 g/dL (13.6-17.9) L 09/30/22 06:15 Hct 27.6 % (39.6-49.0) L 09/30/22 06:15 Plt Count 262 thou/uL (152-406) 09/30/22 06:15 PT 12.0 SECONDS (9.5-12.5) 09/27/22 19:26 INR 1.09 09/27/22 19:26 Sodium 129 mEq/L (136-145) L D 09/30/22 06:15 Potassium 3.9 mEq/L (3.5-5.1) 09/30/22 06:15 BUN 67 mg/dL (7-18) H 09/30/22 06:15 Creatinine 11.80 mg/dL (0.70-1.30) H 09/30/22 06:15 Glucose 160 mg/dL (74-106) H 09/30/22 06:15 Phosphorus 6.1 mg/dL (2.5-4.9) H 09/28/22 03:34 Magnesium 2.3 mg/dL (1.6-2.4) 09/28/22 03:34 Triglycerides 197 mg/dL (<150) H 09/28/22 03:34 Cholesterol 116 mg/dL (<200) 09/28/22 03:34 HDL Cholesterol 30 mg/dL (40-60) L 09/28/22 03:34 Cholesterol/HDL Ratio 3.87 09/28/22 03:34 Home Medications: Carvedilol [Coreg] 25 mg PO BID 09/28/22 Clopidogrel Bisulfate [Plavix] 75 mg PO DAILY 09/28/22 Insulin Aspart Prot/Insuln Asp [Novolog Mix 70-30 Flexpen] 15 units SQ SEECOM 09/28/22 Collagenase [Santyl Ointment*] 1 appl TOP DAILY tube 10/01/22 Levofloxacin [Levaquin] 500 mg PO SEECOM 42 Days #21 tab 10/01/22 New Medications: Levofloxacin [Levaquin] 500 mg PO SEECOM 42 Days #21 tab Physician Discharge Instructions: Patient was found to have infection of his foot with involvement to the bone (osteomyelitis). He underwent debridement by Dr. Patel. Wound cultures grew pseudomonas and Serratia. ID was consulted and recommended 6 weeks of IV gentamicin with dialysis (0.8mg/kg) and levaquin 500mg PO every 48hrs ideally There was difficulty obtaining IV gent at the dialysis center. This was discussed with nephrology and ID, who were in agreement to only do oral levaquin for now, as the bacteria are sensitive to it. With close monitoring in the office and can start IV gentamicin with dialysis if needed. Patient was doing well, remained afebrile, and was deemed stable for discharge home. Continue daily dressing changes with Santyl, Vashe damp to dry daily, wrap with kerlix, LEXII, elevate per Dr. Patel's instructions. Follow up with Dr. Patel in ~1 week. Continue dialysis as scheduled. Followup: Lebron Aceves MD [Primary Care Provider] - Time spent managing pt's care (in minutes): 45
[2022-09-30] MEDS: ACETAMINOPHEN 500 MG TAB PO PRN (16:58)
[2022-09-30] MEDS: carvediloL 12.5 MG TAB PO SCH (16:59)
[2022-09-30] MEDS: CEFEPIME 1 GM in NA CHLORIDE 0.9% 100 ML IV SCH (20:21)
[2022-10-01 04:45] VITALS: BMI 37.4
[2022-10-01 05:03] VITALS: TEMP 98
[2022-10-01] MEDS: carvediloL 12.5 MG TAB PO SCH (06:05)
[2022-10-01 06:06] VITALS: BP 153/84
[2022-10-01 06:40] LABS: Potassium 3.7 mEq/L (3.5-5.1)
[2022-10-01] MEDS: DOCUSATE NA 100 MG CAP PO SCH (09:00)
[2022-10-01] MEDS: MULTIVITAMINS,THERAPEUT 1 TAB PO SCH (09:00)
[2022-10-01] MEDS: CLOPIDOGREL 75 MG TABLET PO SCH (09:30)
[2022-10-01] MEDS: COLLAGENASE 30 GM OINTMENT TOP SCH (09:30)
--- NOTE | 2022-10-01 20:57 | P.PN ---
Date of Service: 10/01/22 Vital Signs Temp Pulse Resp BP Pulse Ox 98 F 74 18 153/84 H 95 10/01/22 08:00 10/01/22 08:00 10/01/22 08:00 10/01/22 08:00 10/01/22 08:00 Microbiology Results 09/27/22 19:26 Wound - Left Foot Gram Stain - Final 09/27/22 19:26 Wound - Left Foot Culture & Sensitivity - Final Pseudomonas Aeruginosa Serratia Marcescens Gram Neg Robby 09/27/22 19:38 Blood - Blood Aerobic Blood Culture - Preliminary No growth in 24 hours. 09/27/22 19:38 Blood - Blood Anaerobic Blood Culture - Preliminary No growth in 24 hours. 09/27/22 19:26 Blood - Blood Aerobic Blood Culture - Preliminary No growth in 24 hours. 09/27/22 19:26 Blood - Blood Anaerobic Blood Culture - Preliminary No growth in 24 hours. Assessment/ Plan: Nephrology No dyspnea No chest pain No acute events overnight Vitals, medications, blood work and imaging reviewed in the chart. General: In no apparent distress, Oriented x3, Cooperative HEENT: Atraumatic Neck: Supple Respiratory: Clear to auscultation bilaterally Cardiovascular: Regular rate/rhythm, Edema Gastrointestinal: Soft and benign, Non-distended Musculoskeletal: No clubbing, No contractures Integumentary: No rashes, No cyanosis, Diabetic ulcer Neurological: Normal speech Blood work reviewed in the chart. Imagings Data: EXAM DESCRIPTION: RADChest Single View09/27/2022 8:08 pm CLINICAL HISTORY: dialysis COMPARISON: Chest Single View dated 06/13/2016Chest Single View dated 06/13/2016; Foot Left 2 View dated 09/27/2022 TECHNIQUE: Portable AP view of the chest. FINDINGS: The lungs are clear. No pneumothorax or effusion. Mild cardiomegaly. The mediastinal contours are unremarkable. IMPRESSION: No acute pulmonary process. Mild cardiomegaly. Conclusions/Impression: ESRD on HD -HD TIW HTN with CKD/ CHF -Continue Coreg Diastolic CHF, chronic -Low sodium diet -Daily weight -HD with UF DM II with CKD & Polyneuropathy DM II with Left foot ulcer -RISS -Continue Abx Anemia in CKD -Retacrit PRN CKD MBD -Continue Ergo
== END 2022-10-01 13:17 | disposition home or self-care (01) | DRG 853 ==
LOC: ER 18:15 → ERHOLD 20:41 → 4TH 21:41
PROVIDERS: ADMIT Internal Medicine; ATTEND Hospitalist
PROC: 0JBR0ZZ Excision of Left Foot Subcutaneous Tissue and Fascia, Open Approach (ICD-10-PCS; 2022-09-28)
PROC: 5A1D70Z Performance of Urinary Filtration, Intermittent, Less than 6 Hours Per Day (ICD-10-PCS; principal; 2022-09-28 11:00)
DX: A41.52 Sepsis due to Pseudomonas (principal); N18.6 End stage renal disease; I12.0 Hypertensive chronic kidney disease with stage 5 chronic kidney disease or end stage renal disease; L03.116 Cellulitis of left lower limb; M86.172 Other acute osteomyelitis, left ankle and foot; E11.52 Type 2 diabetes mellitus with diabetic peripheral angiopathy with gangrene; E11.69 Type 2 diabetes mellitus with other specified complication; E11.22 Type 2 diabetes mellitus with diabetic chronic kidney disease; E11.40 Type 2 diabetes mellitus with diabetic neuropathy, unspecified; E11.621 Type 2 diabetes mellitus with foot ulcer; L97.529 Non-pressure chronic ulcer of other part of left foot with unspecified severity; E11.65 Type 2 diabetes mellitus with hyperglycemia; D63.1 Anemia in chronic kidney disease; H54.7 Unspecified visual loss; F17.210 Nicotine dependence, cigarettes, uncomplicated; B96.89 Other specified bacterial agents as the cause of diseases classified elsewhere; Z99.2 Dependence on renal dialysis; Z79.4 Long term (current) use of insulin; Z79.02 Long term (current) use of antithrombotics/antiplatelets; Z89.422 Acquired absence of other left toe(s); Z79.899 Other long term (current) drug therapy
CPT/HCPCS: 36415; 71045; 73700; 80048; 80061; 80202; 82947; 83036; 83605; 83735; 84100; 84145; 84443; 85025; 85610; 86140; 87040; 87070; 87077; 87186; 87205; 88304; 90935; 93005; 96365; 99285; J0692; J1644; J1815; J2001; J2250; J2405; J2704; J3010; J3590; J7040; J7050; Q5106

== ENCOUNTER 2023-02-18 10:09 | Day surgery (SDC) | payer OTHER ==
[2023-02-16 16:07] LABS: Potassium 3.9 mEq/L (3.5-5.1)
[2023-02-18] MEDS ORDERED: NA CHLORIDE 0.9% 500 ML ONE (10:39)
[2023-02-18] MEDS ORDERED: CEFAZOLIN SODIUM 2 GM/VIAL ONE (10:39)
[2023-02-18] MEDS ORDERED: propofoL 200 MG/20 ML VIAL IV ONE (11:33)
[2023-02-18] MEDS ORDERED: LIDOCAINE 2% MPF 5 ML VIAL ONE (11:34)
[2023-02-18] MEDS ORDERED: MIDAZOLAM HCL 2 MG/2 ML INJ ONE (11:34)
[2023-02-18] MEDS ORDERED: ONDANSETRON 4 MG/2 ML VIAL ONE (11:34)
[2023-02-18] MEDS ORDERED: FENTANYL CITR 100 MCG/2 ML ONE (11:34)
--- NOTE | 2023-02-18 12:01 | P.OP ---
Preoperative diagnosis: LEFT Dorsal Foot Wound Postoperative diagnosis: LEFT Dorsal Foot Wound Primary procedure: Debridement of LEFT Dorsal Foot Wound Anesthesia: GETA + Local Estimated blood loss: <5cc Specimen: Debridement Tissue Findings: Necrosis up to tendon, ~ 2.5cm round Complications: None Transferred to: Recovery Room Condition: Good
[2023-02-18] MEDS ORDERED: BUPIVACAINE 0.25% PF 10 ML VIAL ONE (12:04)
[2023-02-18] MEDS ORDERED: NALOXONE 0.4 MG/ML VIAL ONE (12:22)
--- NOTE | 2023-02-18 12:54 | OP ---
Date of Procedure: 02/18/2023 Surgeon: Biju Patel MD, Preoperative Diagnosis: Left dorsal foot wound. Postoperative Diagnosis: Left dorsal foot wound. Procedure: Debridement of left dorsal foot wound. Anesthesia: General endotracheal plus local with 0.25% Marcaine. Estimated Blood Loss: Less than 5 cc. Specimen: Debridement tissue. Findings: Necrosis of approximately 2.5 cm round segment of dorsal left foot along the first metatar juan down through subcutaneous tissues into and through the fat abutting the tendon, but not involving the tendon. Complications: None. Disposition: Patient was transferred to recovery room in good condition. Procedure In Detail: After informed consent was obtained, patient was prepped and draped in the usua l sterile fashion. After adequate anesthesia was achieved, I injected the area with additional local anesthesia. I circumferentially made dissection down using a 15 blade then circumferentially around the area of necrosis down the subcutaneous tissues. I utilized electrocautery to dissect down throu gh all involved tissues extending all the way down to the fascia overlying the extensor hallucis tend on, but not involving the tendon. I then removed the ellipse of tissue, sent off for pathologic exam ination. The area was copiously irrigated. Hemostasis was achieved with electrocautery. The wound was then packed with Vashe-soaked Kerlix and a sterile dressing was placed over top. Patient tolerat ed the procedure without evidence of any complication and transferred back in good condition. All counts were correct at the end of the case. RHONA/VICKYL Voice ID: [id number] Report ID: [id number]
[2023-02-18 13:13] VITALS: TEMP 97
[2023-02-18 13:15] VITALS: O2SAT 96
[2023-02-18 15:09] VITALS: BP 150/91
== END 2023-02-18 14:23 | disposition home or self-care (01) ==
LOC: OR 10:09
PROVIDERS: ATTEND Surgery
PROC: 0JDR3ZZ Extraction of Left Foot Subcutaneous Tissue and Fascia, Percutaneous Approach (ICD-10-PCS; principal; 2023-02-18 11:45)
DX: S91.302A Unspecified open wound, left foot, initial encounter (principal); L97.529 Non-pressure chronic ulcer of other part of left foot with unspecified severity; I96 Gangrene, not elsewhere classified; E11.65 Type 2 diabetes mellitus with hyperglycemia; N18.9 Chronic kidney disease, unspecified; D63.1 Anemia in chronic kidney disease
CPT/HCPCS: 11042; 80048; 36415 ×2; 84132; 82947 ×2; 88304; J2704; J2310; J2001; J2250; J3010; J2405; J7040